=== PATIENT | male | born 1940 | race Caucasian/White ===

== ENCOUNTER 2018-05-22 08:28 | Observation (INO) | payer OTHER, SELFPAY ==
[2018-05-22] VITALS (10 sets, daily range): BP systolic 105–128; BP diastolic 53–86; PULSE 64–73; RESP 13–18; TEMP 36.3–36.7; O2SAT 95–99
--- NOTE | 2018-05-22 09:17 | DI.RAD.S_ITS ---
PROCEDURE: XR CHEST 1V INDICATIONS: weakness TECHNIQUE: One view of the chest was acquired. COMPARISON: None. FINDINGS: Surgical changes and devices: None. Lungs and pleura: No pleural effusions or pneumothorax. Lungs are clear considering reduced inspiratory volume. Mediastinum: Mediastinal contours appear normal. Heart size is normal. Bones and chest wall: No suspicious bony lesions. Overlying soft tissues appear unremarkable. IMPRESSION: Mildly reduced inspiratory volume, mild crowding of the bronchovascular markings as a result but no pneumonia found. Dictated by: Rony Baca M.D. on 05/22/2018 at 9:40 Approved by: Rony Baca M.D. on 05/22/2018 at 9:40
[2018-05-22 09:24] LABS: Prothrombin Time 11.4 SECONDS (10.1-12.7)
[2018-05-22 09:27] LABS: PTT Partial Thromboplastin Tim 27 SECONDS (26.4-36.2)
[2018-05-22 09:28] LABS: Alanine Aminotransferase 34 IU/L (21-72); Albumin 3.9 g/dL (3.5-5.0); Albumin Globulin Ratio 1.4 (1.0-2.8); Alkaline Phosphatase 53 U/L (38-126); Aspartate Aminotransferase 33 IU/L (17-59); Bilirubin Total 0.5 mg/dL (0.2-1.3); Blood Urea Nitrogen 29 mg/dL (9-20); Calcium 10.1 mg/dL (8.4-10.2); Carbon Dioxide 33 mmol/L (22-32); Chloride 103 mmol/L (98-107); Estimated Glomerular Filt Rate > 60.0 mL/min (>60); Globulin 2.7 g/dL (1.7-4.1); Glucose 133 mg/dL (80-110); HEMOLYSIS < 15 (0-50); Potassium 3.5 mmol/L (3.4-5.1); Sodium 144 mmol/L (137-145); Total Protein 6.6 g/dL (6.3-8.2)
[2018-05-22 09:30] LABS: Add Manual Diff / Slide Review NO; Basophils Percent Auto 1.1 % (0-2); Eosinophils Percent Auto 4.2 % (2-4); Hematocrit 40.1 % (41-53); Hemoglobin 13.5 g/dL (13.5-17.5); Mean Corpuscular HGB Conc 33.6 % (30-36); Mean Corpuscular Hemoglobin 29.7 PG (26-34); Mean Corpuscular Volume 88.3 fL (80-100); Monocytes Percent Auto 10.2 % (3-14); Neutrophils Absolute Auto 4300 /uL (3000-5900); Neutrophils Percent Auto 71.5 % (50-75); Platelet Count 296 X10^3/uL (150-400); Red Blood Cell Count 4.54 X10^6/uL (4.5-5.9); Red Cell Distribution Width 13.8 % (11.6-14.8)
[2018-05-22 09:40] LABS: Troponin I < 0.012 ng/mL (0.01-0.034)
--- NOTE | 2018-05-22 09:46 | ED_ITS ---
HPI - Weakness General Chief complaint: Weakness Stated complaint: cognitive problems, slurring, cannot walk Time Seen by Provider: 05/22/18 09:15 Source: patient and family Mode of arrival: EMS Limitations: altered mental status History of Present Illness HPI Narrative: This is a 77-year-old gentleman who comes to the emergency department with complaint of weakness and multiple falls. According to him and his daughter he has more of a generalized weakness. She states over the last couple weeks it has been rapidly worsening although he has had symptoms for several months. Today she had to lift him by both arms to get him to a bathroom and she states practically carry him. He states that he has had chronic back pain although he states that is usual level of pain. He states when he is walking sometimes he can't feel his legs very well but that really his main issue was that he cannot control the well when he is trying to walk. He is not having any new loss of bowel or bladder control. He had an MRI in 2 or 3 months ago. Now he has not had any recent imaging. He did have a fall almost every single day for 2 weeks while in [place] with his family that was about a week ago. He had his head every single day as well. He is denying any headaches comma is denying any new difficulties with speech or numbness or tingling in his upper extremities. He has a any chest pain or shortness of breath and denies any nausea or vomiting. Related Data Home Medications Medication Instructions Recorded Confirmed Probiotic 1 cap PO DAILY 05/22/18 05/22/18 Vitamin D3 1 cap PO DAILY 05/22/18 05/22/18 donepezil 10 mg PO DAILY 05/22/18 05/22/18 multivitamin 1 tab PO DAILY 05/22/18 05/22/18 vitamin B complex 1 tab PO DAILY 05/22/18 05/22/18 vitamin E 1 cap PO DAILY 05/22/18 05/22/18 Previous Rx's Medication Instructions Recorded lisinopril-hydrochlorothiazide 1 tab PO QDAY #90 tab 04/15/18 doxazosin 4 mg tablet 4 mg PO DAILY #30 tab 05/20/18 Allergies Allergy/AdvReac Type Severity Reaction Status Date / Time Sulfa (Sulfonamide Allergy Severe PER PT Verified 05/22/18 08:37 Antibiotics) WHITE [SULFA (SULFONAMIDE BLOOD ANTIBIOTICS)] CELLS ELIMINATE RED BLOOD CELLS codeine [CODEINE] Allergy Mild BAD Verified 05/22/18 08:37 HEADACHES Review of Systems Review of Systems All systems reviewed & are unremarkable except as noted in HPI and below Constitutional Denies chills, Denies fever(s), Reports frequent falls, Denies headache(s) and Reports weakness (Bilateral lower extremity) ENT Ears, Nose, Mouth, and Throat: Denies headache(s) Cardiovascular Denies chest pain, Denies irregular heart rhythm, Denies lightheadedness, Denies palpitations, Denies dyspnea, Denies dyspnea on exertion and Denies orthopnea Respiratory Denies cough, Denies dyspnea, Denies dyspnea on exertion and Denies wheezing Gastrointestinal Gastrointestinal: Denies abdominal pain, Denies change in bowel habits, Denies fecal incontinence, Denies diarrhea, Denies nausea and Denies vomiting Genitourinary Denies difficulty urinating and Denies urinary incontinence Musculoskeletal Reports back pain and Reports muscle weakness (Both legs) Neurologic Reports frequent falls, Denies headache(s) and Reports weakness (Bilateral lower extremity) Endocrine Denies palpitations Allergic/Immunologic Denies wheezing PFSH Social History marital status: household members: spouse Smoking Status: Former smoker alcohol intake: current substance use type: does not use Exam Narrative Exam Narrative: GEN: well nourished, well appearing elderly male, alert and oriented x 3, patient appears to be in mild distress. HEENT: Atraumatic, pupils are equal round reactive to light, extraocular movements are intact, no facial droop. HEART: Regular rate and rhythm without murmur, clicks, rubs. No carotid bruits , pulses are equal in upper and lower extremities LUNGS:Lungs clear to auscultation, no wheezes, rales, crackles, chest moves symmetrically ABD:bowel sounds normal, soft, non-tender, no guarding, rebound, rigidity, no masses noted, no hepatosplenomegaly :No CVA tenderness BACK: No cervical, thoracic or lumbar vertebral point tenderness. Patient has decreased range of motion of lower extremities. Patient can barely lift off them off the bed b/l. No weakness in upper extremities. Patient's gait is not tested. 2+ pulses all four extremities. Sensation is intact in the lower extremities. MSCL: Non-tender, no muscle atrophy, muscles strength 5/5 upper and lower extremities, full range of motion, normal gait NEURO:CN 2-12 intact, sensation normal, reflexes 2/4 upper and lower extremities. finger nose finger test normal, heel barakat test normal, romberg normal Initial Vital Signs Initial Vital Signs: Vital Signs Pulse Rate 67 05/22/18 11:36 Respiratory Rate 15 05/22/18 11:36 Blood Pressure 122/69 05/22/18 11:36 Pulse Oximetry 97 05/22/18 11:36 Course Orders Ordered: ED Orders 05/22/18 16:29 Education, smoking cessation ONGOING 05/22/18 16:42 Consult to Dietitian, Adult Routine 05/22/18 18:40 Urinalysis and Microscopic Urgent Acetaminophen (Tylenol) 650 mg PO Q6HR PRN PRN Reason: As Needed for Fever/Mild Pain Hydrocodone Bitart/Acetaminophen ([place] 5/325) 2 tab PO Q4HR PRN PRN Reason: Pain, Severe (7-10) Donepezil HCl (Aricept) 10 mg PO DAILY [facility] Enoxaparin Sodium (Lovenox) 40 mg SUBCUT DAILY [facility] Hydrochlorothiazide (Hydrochlorothiazide) 12.5 mg PO DAILY [facility] Last Admin: 05/22/18 18:04 Dose: 12.5 mg Lisinopril (Zestril) 10 mg PO DAILY [facility] Last Admin: 05/22/18 18:04 Dose: 10 mg Discontinued Medications Sodium Chloride (Normal Saline 0.9%) 1,000 mls @ 150 mls/hr IV CONT [facility] Last Infusion: 05/22/18 15:05 Dose: 150 mls/hr Admin: 05/22/18 09:52 Dose: 150 mls/hr Ondansetron HCl (Zofran) 4 mg IV NOW ONE Stop: 05/22/18 10:01 Last Admin: 05/22/18 10:10 Dose: Vital Signs - 8 hr 05/22/18 13:01 05/22/18 14:13 05/22/18 14:45 Temperature 97.6 F Pulse Rate 71 72 73 Respiratory Rate 13 16 16 Blood Pressure 124/53 L Blood Pressure [Right Arm] 117/64 105/86 Pulse Oximetry 98 99 98 05/22/18 16:29 05/22/18 18:04 05/22/18 19:53 Temperature 97.4 F L 98.1 F Pulse Rate 69 69 71 Respiratory Rate 16 18 Blood Pressure 128/55 L 128/55 L 120/56 L Blood Pressure [Right Arm] Pulse Oximetry MDM - Weakness Lab Data Attestation: I reviewed the patient's lab results. Result diagrams: 05/22/18 09:00 05/22/18 09:00 Lab Results 05/22/18 05/22/18 05/22/18 Range/Units 09:00 09:00 09:00 WBC 6.0 (4.5-11.0) X10^3/uL RBC 4.54 (4.5-5.9) X10^6/uL Hgb 13.5 (13.5-17.5) g/dL Hct 40.1 L (41-53) % MCV 88.3 (80-100) fL MCH 29.7 (26-34) PG MCHC 33.6 (30-36) % RDW 13.8 (11.6-14.8) % Plt Count 296 (150-400) X10^3/uL Neut % (Auto) 71.5 (50-75) % Lymph % (Auto) 13.0 L (25-40) % [place] % (Auto) 10.2 (3-14) % Eos % (Auto) 4.2 H (2-4) % Baso % (Auto) 1.1 (0-2) % Neut # (Auto) 4300 (9858-0826) /uL PT 11.4 (10.1-12.7) SECONDS INR 1.0 (0.9-1.3) APTT 27 (26.4-36.2) SECONDS Sodium 144 (137-145) mmol/L Potassium 3.5 (3.4-5.1) mmol/L Chloride 103 (98-107) mmol/L Carbon Dioxide 33 H (22-32) mmol/L BUN 29 H (9-20) mg/dL Creatinine 1.00 (0.66-1.25) mg/dL Estimated GFR > 60.0 (>60) mL/min BUN/Creatinine Ratio 29.0 H (6-22) Glucose 133 H (80-110) mg/dL Calcium 10.1 (8.4-10.2) mg/dL Total Bilirubin 0.5 (0.2-1.3) mg/dL AST 33 (17-59) IU/L ALT 34 (21-72) IU/L Alkaline Phosphatase 53 (38-126) U/L Troponin I (0.01-0.034) ng/mL C-Reactive Protein (<1.0) mg/dL Total Protein 6.6 (6.3-8.2) g/dL Albumin 3.9 (3.5-5.0) g/dL Globulin 2.7 (1.7-4.1) g/dL Albumin/Globulin Ratio 1.4 (1.0-2.8) Vitamin B12 (239-931) pg/mL TSH (0.47-4.68) uIU/mL 05/22/18 05/22/18 05/22/18 Range/Units 09:00 09:00 09:00 WBC (4.5-11.0) X10^3/uL RBC (4.5-5.9) X10^6/uL Hgb (13.5-17.5) g/dL Hct (41-53) % MCV (80-100) fL MCH (26-34) PG MCHC (30-36) % RDW (11.6-14.8) % Plt Count (150-400) X10^3/uL Neut % (Auto) (50-75) % Lymph % (Auto) (25-40) % [place] % (Auto) (3-14) % Eos % (Auto) (2-4) % Baso % (Auto) (0-2) % Neut # (Auto) (9705-6853) /uL PT (10.1-12.7) SECONDS INR (0.9-1.3) APTT (26.4-36.2) SECONDS Sodium (137-145) mmol/L Potassium (3.4-5.1) mmol/L Chloride (98-107) mmol/L Carbon Dioxide (22-32) mmol/L BUN (9-20) mg/dL Creatinine (0.66-1.25) mg/dL Estimated GFR (>60) mL/min BUN/Creatinine Ratio (6-22) Glucose (80-110) mg/dL Calcium (8.4-10.2) mg/dL Total Bilirubin (0.2-1.3) mg/dL AST (17-59) IU/L ALT (21-72) IU/L Alkaline Phosphatase (38-126) U/L Troponin I < 0.012 (0.01-0.034) ng/mL C-Reactive Protein < 0.5 (<1.0) mg/dL Total Protein (6.3-8.2) g/dL Albumin (3.5-5.0) g/dL Globulin (1.7-4.1) g/dL Albumin/Globulin Ratio (1.0-2.8) Vitamin B12 641 (239-931) pg/mL TSH 0.06 L (0.47-4.68) uIU/mL Urine Dip Bedside Urine Glucose Negative Bedside Urine Bilirubin - Negative Bedside Urine Ketone - Negative Urine Specific [place] 1.025 Bedside Urine Occult Blood - Negative Bedside Urine pH 6.0 Bedside Urine Protein - Negative Bedside Urine Urobilinogen - Negative Bedside Urine Nitrite - Negative Bedside Urine Leukocytes - Negative Esterase Imaging Data CT scan - head: Radiologist's impression: [address] [address] [address] Scan Report Signed Patient: Kenny Sanderson EMR#: [id number] : 9Acct:[id number] Age/Sex: 77 / MDate of Service: 05/22/18 Loc: ED Accession Number: [id number] Procedure: CT head/brain wo con Ordering Provider: Melanie Barba D.O. PROCEDURE: CT HEAD/BRAIN WO CON INDICATIONS: weakness, multiple falls, hit head x 2 weeks TECHNIQUE: Noncontrast 4.5 mm thick angled axial sections acquired from the foramen magnum to the vertex, with coronal and sagittal reformats. For radiation dose reduction, the following was used: automated exposure control, adjustment of mA and/or kV according to patient size. COMPARISON: [facility], MR, BRAIN WITHOUT CONTRAST, 05/08/2017, 15:04. FINDINGS: Image quality: Diagnostic. CSF spaces: Basal cisterns are patent. No extra-axial fluid collections. Ventricles are moderately prominent with corresponding parenchymal volume loss. The degree of lateral and 3rd ventricular enlargement is more pronounced compared to the degree of parenchymal volume loss. This appearance is similar to the prior study. Brain: No midline shift. No intracranial masses or hemorrhage. Ruiz-white matter interface is normal. Areas of low-attenuation are seen within the periventricular and deep white matter of the supratentorial brain. Skull and face: Calvarium and visualized facial bones are intact, without suspicious lesions. Sinuses: Visualized sinuses and mastoids are clear. IMPRESSION: 1. No acute intracranial hemorrhage. 2. Chronic small vessel ischemic changes. 3. The degree of ventricular enlargement is unchanged since the prior study and does raise the question of normal pressure hydrocephalus. Please correlate clinically. Dictated by: Harsha Pandya M.D. on 05/22/2018 at 9:23 Approved by: Harsha Pandya M.D. on 05/22/2018 at 9:25 L spine x-ray: Radiologist's impression: [address] [address] XRay Report Signed Patient: Kenny Sanderson EMR#: [id number] : 9Acct:[id number] Age/Sex: 77 / MDate of Service: 05/22/18 Loc: ED Accession Number: [id number] Procedure: XR lumbar spine 2-3V Ordering Provider: Melanie Barba D.O. PROCEDURE: XR LUMBAR SPINE 2-3V INDICATIONS: weakness in legs, multiple falls, back pain TECHNIQUE: 3 views of the lumbar spine were acquired. COMPARISON: None. FINDINGS: Bones: 5 [id number] vertebrae are present. There is grade I L2 on L3 retrolisthesis and L4 on L5 anterolisthesis. No vertebral body compression fractures. No suspicious bony lesions. Mild degenerative changes present throughout the lumbar spine including intervertebral disc space narrowing, endplate sclerosis, and osteophytosis. Vacuum disc phenomenon is present at L5-S1. Soft tissues: Overlying bowel gas pattern is normal. No suspicious soft tissue calcifications. Scattered vascular calcifications are present within the abdominal aorta. IMPRESSION: 1. Degenerative changes and spondylolisthesis. 2. No wedge compression deformities. 3. Aortic atherosclerosis. Dictated by: Renetta Montague M.D. on 05/22/2018 at 10:47 Approved by: Renetta Montague M.D. on 05/22/2018 at 10:49 ECG Data Attestation: I personally reviewed and interpreted this ECG as follows: Interpretation: Sinus rhythm with rate of 71, UT of 229, QRS of 154 QTC 422. Right bundle branch block MDM Narrative Medical decision making narrative: Patient has had increasing weakness and falls. Him and his daughter asked about social work an additional help for in- home health care. Consult was placed but we had also discussed putting patient on observation for further evaluation to see if there is any issues that can help resolve his weakness as well as multiple falls. Head CT shows a possible normal pressure hydrocephalus. Patient's L-spine x-ray does not show any acute changes although discussed with Dr. Hayes plan to admit and they may do some further testing and imaging for further evaluation Discharge Plan Departure Patient Disposition: Admitted as Observation Clinical Impression: Weakness, Multiple falls Discharge Date/Time: 05/22/18 15:06 Interventions: ED Discharge Assessment Last Done: 05/22/18 15:04 Admit Date/Time: 05/22/18 12:04 Admit Provider: Jose Hayes
[2018-05-22] MEDS: SODIUM CHLORIDE 0.9% 1,000 ML 150 ML IV (09:52)
--- NOTE | 2018-05-22 10:04 | DI.RAD.S_ITS ---
PROCEDURE: XR LUMBAR SPINE 2-3V INDICATIONS: weakness in legs, multiple falls, back pain TECHNIQUE: 3 views of the lumbar spine were acquired. COMPARISON: None. FINDINGS: Bones: 5 [id number] vertebrae are present. There is grade I L2 on L3 retrolisthesis and L4 on L5 anterolisthesis. No vertebral body compression fractures. No suspicious bony lesions. Mild degenerative changes present throughout the lumbar spine including intervertebral disc space narrowing, endplate sclerosis, and osteophytosis. Vacuum disc phenomenon is present at L5-S1. Soft tissues: Overlying bowel gas pattern is normal. No suspicious soft tissue calcifications. Scattered vascular calcifications are present within the abdominal aorta. IMPRESSION: 1. Degenerative changes and spondylolisthesis. 2. No wedge compression deformities. 3. Aortic atherosclerosis. Dictated by: Renetta Montague M.D. on 05/22/2018 at 10:47 Approved by: Renetta Montague M.D. on 05/22/2018 at 10:49
--- NOTE | 2018-05-22 10:10 | DI.CT.S_ITS ---
PROCEDURE: CT HEAD/BRAIN WO CON INDICATIONS: weakness, multiple falls, hit head x 2 weeks TECHNIQUE: Noncontrast 4.5 mm thick angled axial sections acquired from the foramen magnum to the vertex, with coronal and sagittal reformats. For radiation dose reduction, the following was used: automated exposure control, adjustment of mA and/or kV according to patient size. COMPARISON: [facility], MR, BRAIN WITHOUT CONTRAST, 05/08/2017, 15:04. FINDINGS: Image quality: Diagnostic. CSF spaces: Basal cisterns are patent. No extra-axial fluid collections. Ventricles are moderately prominent with corresponding parenchymal volume loss. The degree of lateral and 3rd ventricular enlargement is more pronounced compared to the degree of parenchymal volume loss. This appearance is similar to the prior study. Brain: No midline shift. No intracranial masses or hemorrhage. Ruiz-white matter interface is normal. Areas of low-attenuation are seen within the periventricular and deep white matter of the supratentorial brain. Skull and face: Calvarium and visualized facial bones are intact, without suspicious lesions. Sinuses: Visualized sinuses and mastoids are clear. IMPRESSION: 1. No acute intracranial hemorrhage. 2. Chronic small vessel ischemic changes. 3. The degree of ventricular enlargement is unchanged since the prior study and does raise the question of normal pressure hydrocephalus. Please correlate clinically. Dictated by: Harsha Pandya M.D. on 05/22/2018 at 9:23 Approved by: Harsha Pandya M.D. on 05/22/2018 at 9:25
--- NOTE | 2018-05-22 12:48 | PM.HP.1 ---
History of Present Illness Date Patient Seen: 05/22/18 Time Patient Seen: 13:20 Chief complaint: cognitive problems, slurring, cannot walk Narrative: Patient seen and evaluated in the emergency department he is there with his . They live ongoing with [place]. Patient has been seen by me for the last 10 years or so. Over the last 3-5 years he has had a gradual progression decline in his strength in his lower extremities. He has had increasing difficulty with weakness. Balance and coordination which has worsened. This began with workup about 3 years ago. Patient had an MRI of his head and also of his neck. He had laboratory could testing including vitamin B12 folic acid inflammatory markers heavy metals and RPR. Patient solid neurologist at that point. He was diagnosed with an ataxic gait of unknown etiology. Since that time things have progressed. In last year he started to having to use a walker. His cognition is decreased a little bit. He is no longer able to remember things like he used to. He had a follow-up appointment with a different neurologist Dr. Geri hanna. And no unifying conclusive diagnosis was made had a repeat of his MRI of his brain. His MRI show chronic microvascular ischemic changes and age-related atrophy. But no specific concerns. Things have continued to progress and over the last month. He has become more and more weak having more more times of forgetfulness. Now he cannot walk without a walker. He is following. He was brought to the emergency room most recently by his who states on Sunday he could not walk she could not help transport him and could not get him up out of bed or to the bathroom. He presents to the emergency department. Emergency room laboratory testing is normal. Blood pressure is normal. Heart rhythm monitoring is normal. Lumbar spine x-rays normal chest x-ray is normal CT scan shows old changes. On my examination his baseline cognition is there. But he is a fairly good historian with his at his bedside. I did not get him up to walk. Patient History Family & Social History Tobacco & Substance use: Smoking Status Never smoker alcohol intake current Meds Home Medications Medication Instructions Recorded Confirmed Type lisinopril-hydrochlorothiazide 1 tab PO QDAY #90 tab 04/15/18 05/22/18 Rx doxazosin 4 mg tablet 4 mg PO DAILY #30 tab 05/20/18 05/22/18 Rx Probiotic 1 cap PO DAILY 05/22/18 05/22/18 History Vitamin D3 1 cap PO DAILY 05/22/18 05/22/18 History donepezil 10 mg PO DAILY 05/22/18 05/22/18 History multivitamin 1 tab PO DAILY 05/22/18 05/22/18 History vitamin B complex 1 tab PO DAILY 05/22/18 05/22/18 History vitamin E 1 cap PO DAILY 05/22/18 05/22/18 History Allergies Allergy/AdvReac Type Severity Reaction Status Date / Time Sulfa (Sulfonamide Allergy Severe PER PT Verified 05/22/18 08:37 Antibiotics) WHITE [SULFA (SULFONAMIDE BLOOD ANTIBIOTICS)] CELLS ELIMINATE RED BLOOD CELLS codeine [CODEINE] Allergy Mild BAD Verified 05/22/18 08:37 HEADACHES Exam Vital Signs (past 8 hours): - 05/22/18 11:36 05/22/18 12:00 Pulse Rate 67 68 Respiratory Rate 15 16 Blood Pressure [Right Arm] 122/69 116/65 Pulse Oximetry 97 98 Oxygen Delivery Method Room Air Narrative Exam Narrative: Gen.: Alert difficulty with time oriented to place and person HEENT: NCAT PERRLA tympanic membranes are clear nares are patent oral mucosa is moist no tonsillar hypertrophy neck is supple without lymphadenopathy no thyroid enlargement. Cardio: S1-S2 regular rate and rhythm no murmurs appreciated. Respiratory: Lungs are clear to auscultation no wheezes or crackles normal respiratory effort. Abdomen: Soft nontender no rebound or guarding no liver spleen enlargement no appreciable hernias Extremities: Full range of motion no appreciable weakness no cyanosis or edema. Neurologic: No focal neurological deficit Objective Imaging MRI - head: Radiologist's impression: MRI from 2018 earlier this year shows chronic microvascular ischemic changes as well as age-related atrophy. CT scan - head: Radiologist's impression: [address] [address] [address] Scan Report Signed Patient: Kenny Sanderson MR#: [id number] : 1940 Acct:[id number] Age/Sex: 77 / M Date of Service: 05/22/18 Loc: ED Accession Number: [id number] Procedure: CT head/brain wo con Ordering Provider: Melanie Barba D.O. PROCEDURE: CT HEAD/BRAIN WO CON INDICATIONS: weakness, multiple falls, hit head x 2 weeks TECHNIQUE: Noncontrast 4.5 mm thick angled axial sections acquired from the foramen magnum to the vertex, with coronal and sagittal reformats. For radiation dose reduction, the following was used: automated exposure control, adjustment of mA and/or kV according to patient size. COMPARISON: [facility], MR, BRAIN WITHOUT CONTRAST, 05/08/2017, 15:04. FINDINGS: Image quality: Diagnostic. CSF spaces: Basal cisterns are patent. No extra-axial fluid collections. Ventricles are moderately prominent with corresponding parenchymal volume loss. The degree of lateral and 3rd ventricular enlargement is more pronounced compared to the degree of parenchymal volume loss. This appearance is similar to the prior study. Brain: No midline shift. No intracranial masses or hemorrhage. Ruiz-white matter interface is normal. Areas of low-attenuation are seen within the periventricular and deep white matter of the supratentorial brain. Skull and face: Calvarium and visualized facial bones are intact, without suspicious lesions. Sinuses: Visualized sinuses and mastoids are clear. IMPRESSION: 1. No acute intracranial hemorrhage. 2. Chronic small vessel ischemic changes. 3. The degree of ventricular enlargement is unchanged since the prior study and does raise the question of normal pressure hydrocephalus. Please correlate clinically. Labs Result Diagrams: 05/22/18 09:00 05/22/18 09:00 Labs: Laboratory Results - last 24 hr 05/22/18 05/22/18 05/22/18 09:00 09:00 09:00 WBC 6.0 RBC 4.54 Hgb 13.5 Hct 40.1 L MCV 88.3 MCH 29.7 MCHC 33.6 RDW 13.8 Plt Count 296 Neut % (Auto) 71.5 Lymph % (Auto) 13.0 L [place] % (Auto) 10.2 Eos % (Auto) 4.2 H Baso % (Auto) 1.1 Neut # (Auto) 4300 PT 11.4 INR 1.0 APTT 27 Sodium 144 Potassium 3.5 Chloride 103 Carbon Dioxide 33 H BUN 29 H Creatinine 1.00 Estimated GFR > 60.0 BUN/Creatinine Ratio 29.0 H Glucose 133 H Calcium 10.1 Total Bilirubin 0.5 AST 33 ALT 34 Alkaline Phosphatase 53 Troponin I Total Protein 6.6 Albumin 3.9 Globulin 2.7 Albumin/Globulin Ratio 1.4 05/22/18 09:00 WBC RBC Hgb Hct MCV MCH MCHC RDW Plt Count Neut % (Auto) Lymph % (Auto) [place] % (Auto) Eos % (Auto) Baso % (Auto) Neut # (Auto) PT INR APTT Sodium Potassium Chloride Carbon Dioxide BUN Creatinine Estimated GFR BUN/Creatinine Ratio Glucose Calcium Total Bilirubin AST ALT Alkaline Phosphatase Troponin I < 0.012 Total Protein Albumin Globulin Albumin/Globulin Ratio Assessment & Plan Plan: Assessment/Plan Narrative: Inability to ambulate falls weakness neural cognitive changes all progressive. Patient has had an increase in of symptomatology. He is unable to ambulate. Laboratory testing from the emergency room was unrevealing. CT scan shows no acute intracranial pathology. Patient has an extensive workup history with the MRIs of his head neck. He is also seeing that Neurosurgery for back as a potential problem of his the difficulty with ambulating. Two different neurologists none of which have come up with a significant diagnosis. These might be age-related changes or they may be an underlying condition. Such is normal pressure hydrocephalus. Some type of other attack sick disorder. Nonetheless she is unable to really take care of himself at home at this point. There is no good care plan available for him right now. Will go ahead and admit him to the hospital. Will have a social science teacher evaluate him and talk with him his about to have additional care plans and support whether this is home health or shelter facility versus assisted living. He will need continued ongoing workup and evaluation of this with Neurology which we do not have access to currently at our hospital. BPH symptoms. He is allergic to sulfa. He is not tolerating Flomax. Will go ahead and start finasteride 5 mg daily. Hypertension. He is currently on an antihypertensive medication will continue with this. DVT prophylaxis with Lovenox. Disposition plan physical therapy social science teacher evaluation for help in management with he and his about the long-term care plans. We will go from there.
--- NOTE | 2018-05-22 12:52 | P.HP_ITS ---
History of Present Illness Date Patient Seen: 05/22/18 Time Patient Seen: 13:20 Chief complaint: cognitive problems, slurring, cannot walk Narrative: Patient seen and evaluated in the emergency department he is there with his . They live ongoing with [facility]. Patient has been seen by me for the last 10 years or so. Over the last 3-5 years he has had a gradual progression decline in his strength in his lower extremities. He has had increasing difficulty with weakness. Balance and coordination which has worsened. This began with workup about 3 years ago. Patient had an MRI of his head and also of his neck. He had laboratory could testing including vitamin B12 folic acid inflammatory markers heavy metals and RPR. Patient solid neurologist at that point. He was diagnosed with an ataxic gait of unknown etiology. Since that time things have progressed. In last year he started to having to use a walker. His cognition is decreased a little bit. He is no longer able to remember things like he used to. He had a follow-up appointment with a different neurologist Dr. Geri hanna. And no unifying conclusive diagnosis was made had a repeat of his MRI of his brain. His MRI show chronic microvascular ischemic changes and age-related atrophy. But no specific concerns. Things have continued to progress and over the last month. He has become more and more weak having more more times of forgetfulness. Now he cannot walk without a walker. He is following. He was brought to the emergency room most recently by his who states on Sunday he could not walk she could not help transport him and could not get him up out of bed or to the bathroom. He presents to the emergency department. Emergency room laboratory testing is normal. Blood pressure is normal. Heart rhythm monitoring is normal. Lumbar spine x-rays normal chest x-ray is normal CT scan shows old changes. On my examination his baseline cognition is there. But he is a fairly good historian with his at his bedside. I did not get him up to walk. Patient History Family & Social History Tobacco & Substance use: Smoking Status Never smoker alcohol intake current Meds Home Medications Medication Instructions Recorded Confirmed Type lisinopril-hydrochlorothiazide 1 tab PO QDAY #90 tab 04/15/18 05/22/18 Rx doxazosin 4 mg tablet 4 mg PO DAILY #30 tab 05/20/18 05/22/18 Rx Probiotic 1 cap PO DAILY 05/22/18 05/22/18 History Vitamin D3 1 cap PO DAILY 05/22/18 05/22/18 History donepezil 10 mg PO DAILY 05/22/18 05/22/18 History multivitamin 1 tab PO DAILY 05/22/18 05/22/18 History vitamin B complex 1 tab PO DAILY 05/22/18 05/22/18 History vitamin E 1 cap PO DAILY 05/22/18 05/22/18 History Allergies Allergy/AdvReac Type Severity Reaction Status Date / Time Sulfa (Sulfonamide Allergy Severe PER PT Verified 05/22/18 08:37 Antibiotics) WHITE [SULFA (SULFONAMIDE BLOOD ANTIBIOTICS)] CELLS ELIMINATE RED BLOOD CELLS codeine [CODEINE] Allergy Mild BAD Verified 05/22/18 08:37 HEADACHES Exam Vital Signs (past 8 hours): - 05/22/18 11:36 05/22/18 12:00 Pulse Rate 67 68 Respiratory Rate 15 16 Blood Pressure [Right Arm] 122/69 116/65 Pulse Oximetry 97 98 Oxygen Delivery Method Room Air Narrative Exam Narrative: Gen.: Alert difficulty with time oriented to place and person HEENT: NCAT PERRLA tympanic membranes are clear nares are patent oral mucosa is moist no tonsillar hypertrophy neck is supple without lymphadenopathy no thyroid enlargement. Cardio: S1-S2 regular rate and rhythm no murmurs appreciated. Respiratory: Lungs are clear to auscultation no wheezes or crackles normal respiratory effort. Abdomen: Soft nontender no rebound or guarding no liver spleen enlargement no appreciable hernias Extremities: Full range of motion no appreciable weakness no cyanosis or edema. Neurologic: No focal neurological deficit Objective Imaging MRI - head: Radiologist's impression: MRI from 2018 earlier this year shows chronic microvascular ischemic changes as well as age-related atrophy. CT scan - head: Radiologist's impression: [address] [address] [address] Scan Report Signed Patient: Kenny Sanderson MR#: [id number] : 1940 Acct:[id number] Age/Sex: 77 / M Date of Service: 05/22/18 Loc: ED Accession Number: [id number] Procedure: CT head/brain wo con Ordering Provider: Melanie Barba D.O. PROCEDURE: CT HEAD/BRAIN WO CON INDICATIONS: weakness, multiple falls, hit head x 2 weeks TECHNIQUE: Noncontrast 4.5 mm thick angled axial sections acquired from the foramen magnum to the vertex, with coronal and sagittal reformats. For radiation dose reduction, the following was used: automated exposure control, adjustment of mA and/or kV according to patient size. COMPARISON: [facility], MR, BRAIN WITHOUT CONTRAST, 05/08/2017, 15:04. FINDINGS: Image quality: Diagnostic. CSF spaces: Basal cisterns are patent. No extra-axial fluid collections. Ventricles are moderately prominent with corresponding parenchymal volume loss. The degree of lateral and 3rd ventricular enlargement is more pronounced compared to the degree of parenchymal volume loss. This appearance is similar to the prior study. Brain: No midline shift. No intracranial masses or hemorrhage. Ruiz-white matter interface is normal. Areas of low-attenuation are seen within the periventricular and deep white matter of the supratentorial brain. Skull and face: Calvarium and visualized facial bones are intact, without suspicious lesions. Sinuses: Visualized sinuses and mastoids are clear. IMPRESSION: 1. No acute intracranial hemorrhage. 2. Chronic small vessel ischemic changes. 3. The degree of ventricular enlargement is unchanged since the prior study and does raise the question of normal pressure hydrocephalus. Please correlate clinically. Labs Result Diagrams: 05/22/18 09:00 05/22/18 09:00 Labs: Laboratory Results - last 24 hr 05/22/18 05/22/18 05/22/18 09:00 09:00 09:00 WBC 6.0 RBC 4.54 Hgb 13.5 Hct 40.1 L MCV 88.3 MCH 29.7 MCHC 33.6 RDW 13.8 Plt Count 296 Neut % (Auto) 71.5 Lymph % (Auto) 13.0 L [place] % (Auto) 10.2 Eos % (Auto) 4.2 H Baso % (Auto) 1.1 Neut # (Auto) 4300 PT 11.4 INR 1.0 APTT 27 Sodium 144 Potassium 3.5 Chloride 103 Carbon Dioxide 33 H BUN 29 H Creatinine 1.00 Estimated GFR > 60.0 BUN/Creatinine Ratio 29.0 H Glucose 133 H Calcium 10.1 Total Bilirubin 0.5 AST 33 ALT 34 Alkaline Phosphatase 53 Troponin I Total Protein 6.6 Albumin 3.9 Globulin 2.7 Albumin/Globulin Ratio 1.4 05/22/18 09:00 WBC RBC Hgb Hct MCV MCH MCHC RDW Plt Count Neut % (Auto) Lymph % (Auto) [place] % (Auto) Eos % (Auto) Baso % (Auto) Neut # (Auto) PT INR APTT Sodium Potassium Chloride Carbon Dioxide BUN Creatinine Estimated GFR BUN/Creatinine Ratio Glucose Calcium Total Bilirubin AST ALT Alkaline Phosphatase Troponin I < 0.012 Total Protein Albumin Globulin Albumin/Globulin Ratio Assessment & Plan Plan: Assessment/Plan Narrative: Inability to ambulate falls weakness neural cognitive changes all progressive. Patient has had an increase in of symptomatology. He is unable to ambulate. Laboratory testing from the emergency room was unrevealing. CT scan shows no acute intracranial pathology. Patient has an extensive workup history with the MRIs of his head neck. He is also seeing that Neurosurgery for back as a potential problem of his the difficulty with ambulating. Two different neurologists none of which have come up with a significant diagnosis. These might be age-related changes or they may be an underlying condition. Such is normal pressure hydrocephalus. Some type of other attack sick disorder. Nonetheless she is unable to really take care of himself at home at this point. There is no good care plan available for him right now. Will go ahead and admit him to the hospital. Will have a social media developer evaluate him and talk with him his about to have additional care plans and support whether this is home health or prison facility versus assisted living. He will need continued ongoing workup and evaluation of this with Neurology which we do not have access to currently at our hospital. BPH symptoms. He is allergic to sulfa. He is not tolerating Flomax. Will go ahead and start finasteride 5 mg daily. Hypertension. He is currently on an antihypertensive medication will continue with this. DVT prophylaxis with Lovenox. Disposition plan physical therapy social media developer evaluation for help in management with he and his about the long-term care plans. We will go from there.
[2018-05-22 14:24] LABS: C-Reactive Protein Quant < 0.5 mg/dL (<1.0)
[2018-05-22 14:49] LABS: Thyroid Stimulating Hormone 0.06 uIU/mL (0.47-4.68)
[2018-05-22 15:08] LABS: Vitamin B12 641 pg/mL (239-931)
[2018-05-22] MEDS: hydroCHLOROthiazide 12.5 MG CAPSULE PO (18:04)
[2018-05-22] MEDS: LISINOPRIL 10 MG TABLET PO (18:04)
[2018-05-22 19:47] LABS: Bacteria Urine None Seen; RBC Urine None Seen (0-5/HPF)
[2018-05-22 19:51] LABS: Appearance Urine UA SL CLOUDY; Bilirubin Urine UA NEGATIVE (NEGATIVE); Color Urine UA YELLOW; Glucose Urine UA NEGATIVE (Normal); Ketones Urine UA NEGATIVE (NEGATIVE); Leukocyte Esterase Urine UA NEGATIVE (NEGATIVE); Nitrite Urine UA NEGATIVE (Negative); Occult Blood Urine UA NEGATIVE (Negative); Protein Urine UA NEGATIVE (Negative); Specific Gravity Urine UA 1.015 (1.000-1.035); Urobilinogen Urine UA 0.2 E.U./dL (0.2)
[2018-05-22 20:07] LABS: Squamous Epithelial Cell Urine 0-1 /HPF; WBC Urine 0-1/HPF (0-5/HPF)
[2018-05-22 20:08] LABS: Amorphous Sediment Urine 1+; Culture Indicated Urine Cult Not Indicated
[2018-05-23] VITALS (9 sets, daily range): BP systolic 106–145; BP diastolic 58–107; PULSE 61–74; RESP 16–24; TEMP 36.1–36.7; O2SAT 95–99
--- NOTE | 2018-05-23 | DI.US.S_ITS ---
PROCEDURE: US THYROID INDICATIONS: hyperthyroid TECHNIQUE: Real-time scanning was performed of the thyroid gland, with image documentation. COMPARISON: None. FINDINGS: Right: Thyroid lobe measures 1.6 x 2.0 x 5.1 cm. note is made of a superior right 3 mm cyst Left: Thyroid lobe measures 1.8 x 1.8 x 4.1 cm. note is made of a left inferior 4 mm cyst. Isthmus: 2 mm thick. Lymph nodes: No regional lymphadenopathy. IMPRESSION: Normal thyroid echotexture, no solid mass is found. Note is made of a small cyst within each thyroid lobe measuring only 3-4 mm in maximal dimension. Dictated by: Rony Baca M.D. on 05/23/2018 at 13:26 Approved by: Rony Baca M.D. on 05/23/2018 at 13:27
[2018-05-23 06:08] LABS: Erythrocyte Sedimentation Rate 9 MM/HR (0-15)
--- NOTE | 2018-05-23 08:00 | PM.PN.1 ---
Subjective Date Patient Seen: 05/23/18 Time Patient Seen: 08:00 Interval history: Patient was admitted yesterday afternoon for lower extremity weakness. Apparently this is been ongoing issue but seemingly progressing to where he has difficult time ambulating. Issues at hand over long-term management of his weakness. Additionally attending to come over the diagnosis and cause of his weakness. There is some thoughts that may well be related to spinal stenosis Objective Exam Vital Signs (past 8 hours): - 05/23/18 03:00 Temperature 97.8 F Pulse Rate 61 Respiratory Rate 16 Blood Pressure 113/65 Pulse Oximetry 95 Oxygen Delivery Method Room Air Oxygen Flow Rate 97 Narrative Exam Narrative: the patient is sitting upright in his chair complaining of being cold no official exam is performed Objective Labs Result Diagrams: 05/22/18 09:00 05/22/18 09:00 Labs: Laboratory Results - last 24 hr 05/22/18 05/22/18 05/22/18 09:00 09:00 09:00 WBC 6.0 RBC 4.54 Hgb 13.5 Hct 40.1 L MCV 88.3 MCH 29.7 MCHC 33.6 RDW 13.8 Plt Count 296 Neut % (Auto) 71.5 Lymph % (Auto) 13.0 L [place] % (Auto) 10.2 Eos % (Auto) 4.2 H Baso % (Auto) 1.1 Neut # (Auto) 4300 ESR PT 11.4 INR 1.0 APTT 27 Sodium 144 Potassium 3.5 Chloride 103 Carbon Dioxide 33 H BUN 29 H Creatinine 1.00 Estimated GFR > 60.0 BUN/Creatinine Ratio 29.0 H Glucose 133 H Calcium 10.1 Total Bilirubin 0.5 AST 33 ALT 34 Alkaline Phosphatase 53 Troponin I C-Reactive Protein Total Protein 6.6 Albumin 3.9 Globulin 2.7 Albumin/Globulin Ratio 1.4 Vitamin B12 TSH Urine Color Urine Appearance Urine pH Ur Specific [place] Urine Protein Urine Glucose (UA) Urine Ketones Urine Occult Blood Urine Nitrate Urine Bilirubin Urine Urobilinogen Ur Leukocyte Esterase Urine RBC Urine WBC Ur Squamous Epith Cells Amorphous Sediment Urine Bacteria Ur Culture Indicated? Micro UA Comment 05/22/18 05/22/18 05/22/18 09:00 09:00 09:00 WBC RBC Hgb Hct MCV MCH MCHC RDW Plt Count Neut % (Auto) Lymph % (Auto) [place] % (Auto) Eos % (Auto) Baso % (Auto) Neut # (Auto) ESR PT INR APTT Sodium Potassium Chloride Carbon Dioxide BUN Creatinine Estimated GFR BUN/Creatinine Ratio Glucose Calcium Total Bilirubin AST ALT Alkaline Phosphatase Troponin I < 0.012 C-Reactive Protein < 0.5 Total Protein Albumin Globulin Albumin/Globulin Ratio Vitamin B12 641 TSH 0.06 L Urine Color Urine Appearance Urine pH Ur Specific [place] Urine Protein Urine Glucose (UA) Urine Ketones Urine Occult Blood Urine Nitrate Urine Bilirubin Urine Urobilinogen Ur Leukocyte Esterase Urine RBC Urine WBC Ur Squamous Epith Cells Amorphous Sediment Urine Bacteria Ur Culture Indicated? Micro UA Comment 05/22/18 05/23/18 18:40 05:41 WBC RBC Hgb Hct MCV MCH MCHC RDW Plt Count Neut % (Auto) Lymph % (Auto) [place] % (Auto) Eos % (Auto) Baso % (Auto) Neut # (Auto) ESR 9 PT INR APTT Sodium Potassium Chloride Carbon Dioxide BUN Creatinine Estimated GFR BUN/Creatinine Ratio Glucose Calcium Total Bilirubin AST ALT Alkaline Phosphatase Troponin I C-Reactive Protein Total Protein Albumin Globulin Albumin/Globulin Ratio Vitamin B12 TSH Urine Color Yellow Urine Appearance Sl cloudy Urine pH 7.0 Ur Specific [place] 1.015 Urine Protein Negative Urine Glucose (UA) Negative Urine Ketones Negative Urine Occult Blood Negative Urine Nitrate Negative Urine Bilirubin Negative Urine Urobilinogen 0.2 Ur Leukocyte Esterase Negative Urine RBC None seen Urine WBC 0-1/hpf Ur Squamous Epith Cells 0-1 /hpf Amorphous Sediment 1+ Urine Bacteria None seen Ur Culture Indicated? Cult not indicated Micro UA Comment Not Reportable Labs reviewed Patient has stayed decreased TSH. Ultrasound of thyroid pending. Chart review however shows he has had a low TSH for perhaps 20 years Assessment & Plan (1) Decreased thyroid stimulating hormone (TSH) level: Current visit: Yes Status: Acute Plan: Assessment/Plan Narrative: 1. Lower extremity weakness. Physical therapy to reassess. 2. Decreased TSH thyroid home almost ordered. Para 3. Social service to be involved with discharge planning. Apparently patient has some long-term game plan with referral elsewhere as per Dr. Etienne Quality VTE Deep Vein Thrombosis/Pulmonary Embolism Present on Admission: No
[2018-05-23] MEDS: ENOXAPARIN 40 MG/0.4 ML SYRINGE SUBCUT (09:28)
[2018-05-23] MEDS: LISINOPRIL 10 MG TABLET PO (09:28)
[2018-05-23] MEDS: hydroCHLOROthiazide 12.5 MG CAPSULE PO (09:28)
[2018-05-23] MEDS: DONEPEZIL 5 MG TABLET 10 MG PO (09:28)
[2018-05-23 10:42] LABS: Free T3, Triiodothyronine Free 3.05 pg/mL (2.77-5.27); T4 Total Thyroxine 8.91 ug/dL (5.5-11.0)
--- NOTE | 2018-05-23 12:25 | PT.IIE ---
Current Diagnoses Other specified abnormal findings of blood chemistry (05/22/18) Surgical History (Last Reviewed 05/15/18 @ 12:02 by Winsome Willett LPN) History of inguinal hernia repair (Resolved) Status post appendectomy (Resolved) Status post tonsillectomy and adenoidectomy (Resolved) Medical History (Last Reviewed 05/15/18 @ 12:02 by Winsome Willett LPN) BPH (benign prostatic hyperplasia) (Chronic) Physical Therapy Inpatient Evaluation/Re-Eval M1 PT/OT-IP Prior Functional Status Start: 05/23/18 11:48 Freq: NEEDED Status: Active Protocol: Document 05/23/18 11:51 IJS (Rec: 05/23/18 12:24 IJS [email or web address]) Medical Review Prior Functional Status Medical History Reviewed Yes Communication Very chatty and repeating his questions throughout the treatment, burkinan. Mobility and Gait History of several falls at home. Was using a walking stick or cane but per his he only uses his walker now. Has a 4 wheeled walker but prefers the FWW at this time as it feels more stable to him . Activities of Daily Living and IADL's He reports he is independent, his was not present when I asked. Social History Household Members spouse Living Arrangements House Number of Floors (Floors) One Floor Number of Stairs To Enter/Railing? Has moved from the upstairs to the level for living space and that is where the master bedroom is. He avoids stairs. Home Environment Standard Height Toilet Home Equipment Four Wheel Walker Straight Cane Shower Seat with Backrest Grab Bars Near Toilet Grab Bars In Shower Employment Status Retired M2 PT-IP Current Condition Start: 05/23/18 11:48 Freq: NEEDED Status: Active Protocol: Document 05/23/18 11:51 IJS (Rec: 05/23/18 12:24 IJS [email or web address]) Physical Therapy Current Condition Current Condition Evaluation Date 05/23/18 Treatment Diagnosis Walking/gait disturbance Onset Date 05/22/18 Weight Bearing Status Weight Bearing Status Full Weight Bearing Allowed Weight Bearing Amount (enter % He reports it is his right leg or #) (%) that kyle. M3 PT-IP Subjective Start: 05/23/18 11:48 Freq: NEEDED Status: Active Protocol: Document 05/23/18 11:51 IJS (Rec: 05/23/18 12:24 IJS [email or web address]) Subjective Physical Therapy Visit Type Type Initial Evaluation Visit Start Time 11:00 Visit Stop Time 11:42 Total Visit Minutes 42 Number of EDGER AUTOMATIC Visits 0 Physical Therapy Visit Comments Patient Comments Willing to get up and work with PT. Not sure why his balance is challenged or why his right leg feels weak. C/O pain behind the right knee at times then it kyle. Patient Goals Wants to return home with assistance. Therapy Pain Assessment Pain When Pain Assessed During Mobility Pain Present Pain Present Pain Reported Location Back Description Chronic Pain Management Techniques Re-positioning M4 PT-IP Mobility and Gait Start: 05/23/18 11:48 Freq: NEEDED Status: Active Protocol: Document 05/23/18 11:51 IJS (Rec: 05/23/18 12:24 IJS [email or web address]) PT-Bed Mobility Assessment Rolling Type of Rolling Roll to Left Level of Assist Standby Assistance Supine to Sit Supine to Sit Standby Assistance Scooting Scooting to Edge of Bed Standby Assistance PT-Transfer Assessment Sit to and From Stand Sit to and from Stand Contact Guard Assistance 1 Person Assistance Use of Upper Extremities Equipment Transfer Assistive Device Gait Belt Front Wheeled Walker Orthotic/Prosthetic Devices or Brace: No Transfers Transfer Destination Chair Transfer Technique Stand Step Pivot Transfer Ability Level of Assist Contact Guard Assistance Comments Mobility Comments When sitting at the edge of the bed when I began to put on the gait belt he laid straight back on the bed. When I asked about that he said he is top heavy with a long torso and short legs. He feels this is attributing to his loss of balance. Gait Assessment Gait Gait Assistance Required: Minimum Assistance Distance (Feet) 100 Able to Maintain Weight Bearing Status Yes During Gait Assistive Devices Assistive Device Front Wheeled Walker Orthotic/Prosthetic Devices or Brace: No Gait Deviations General Gait Pattern Decreased Stride Length Decreased Feet Clearance Narrow Based Gait Step-to Gait Factors Limiting Gait Function Factors Limiting Gait Function Decreased Strength Poor Balance Poor Safety Awareness Stair Climbing Assessment Comments Stair Climbing Comments He avoids stairs and has a patio entry over the grass. PT-Balance Assessment Sitting Balance and Reactions Static Sitting Balance Ability Good Dynamic Sitting Balance Ability Fair Standing Balance and Reactions Static Standing Balance Ability Fair Dynamic Standing Balance Ability Poor Functional Assessments Functional Tests Tinetti Balance and Gait Assessment 04/26 Other Functional Tests Performed High fall risk M5 PT-IP Objective Assessments Start: 05/23/18 11:48 Freq: NEEDED Status: Active Protocol: Document 05/23/18 11:51 IJS (Rec: 05/23/18 12:24 IJS [email or web address]) Orientation Orientation/Cognition Level of Alertness Alert Orientation Name Age Safety Awareness Decreased Safety Awareness Memory Description Short Term Impaired Comments Able to tell me where he is and what day it is but did repeat questions to me throughout the treatment. Gross Range of Motion Upper Extremity ROM Assessment Within Functional Limits Impairments Left bicipital pain and shoulder flexion to 130 degress Lower Extremity ROM Assessment Within Functional Limits Strength Upper Extremity Strength Assessment Within Functional Limits Lower Extremity Strength Assessment Within Functional Limits Comments Strength Comments Shoulder flexion right 4/5, hip flexion right 4/5. All other MMT grossly 5/5 but low endurance. Coordination Assessment Gross Coordination Gross Coordination WNL Sensation Assessment Sensation Gross Sensation WNL Light Touch Intact Proprioception (Position) Intact Muscle Tone Muscle Tone WNL Yes M6 PT-IP Treatment Start: 05/23/18 11:48 Freq: NEEDED Status: Active Protocol: Document 05/23/18 11:51 IJS (Rec: 05/23/18 12:24 IJS [email or web address]) Physical Therapy Treatment Exercises Exercises Ankle Pumps Shoulder Flexion Elbow Flexion/Extension Education Education Provided Safety Other Treatments Other Treatment Performed Standing with walker high marching, heel and toe raises. M7 PT-IP Assessment and Plan Start: 05/23/18 11:48 Freq: NEEDED Status: Active Protocol: Document 05/23/18 11:51 IJS (Rec: 05/23/18 12:24 IJS [email or web address]) PT Summary Assessment and Plan Potential Rehabilitation Potential Fair Status of Condition at Evaluation Evolving Summary Impairments Pain Strength Cognition Gait Activity Tolerance Assessment Summary Post admit day #1, unsteady gait and protective of his right leg demonstrating a step - type gait pattern. Blood pressure after gait/mobility 119/62, HR 68. Goals Bed Mobility Goal Independent Transfer Goal Standby Assistance Gait Goal Standby Assistance Gait Distance 150 Days to Meet Goals 3 Frequency of Treatment Frequency Of Treatment Once a Day Treatment Plan Physical Therapy Treatment Plan Bed Mobility Training Transfer Training Gait Training Therapeutic Exercise Balance Retraining Discharge Planning Recommendations To Nursing Amount of Assist Needed 1 Person Assist Discharge Recommendations PT Discharge Recommendations Home with 19/02 Assist Other Discharge Recommendations Will benefit from PT Equipment Needed for Home Before He will need a front wheeled Discharge walker.
--- NOTE | 2018-05-23 14:14 | CM.IDA ---
DCP Assessment Note: Pt is a 77 yo male, resident of [facility]. Pt presents w/weakness, inability to walk, and cognitive changes. Pt's PCP is Dr Etienne; [facility]. Introduced SW role at pt's bedside this morning, spouse not present. Pt is a pleasant man and very talkative. Pt has a tendency to repeat himself throughout the conversation but is A+O. Pt requests addtl. conversation be held w/his spouse. Pt's Nadira is 20 yrs younger then he and works time signal wirer in [employer]. Met later w/pt and spouse Nadira. Nadira explains there is no diagnosis yet for pt's cognitive decline over the last 2 years. Re: pt's functional decline; Pt has spinal stenosis and arthritis in his spine, spinal injections and outpt PT have made no lasting effect. Pt has seen neurologists, and an addtl referral will be sent by Dr Etienne to a neurologist in [place], per Nadira. Pt and spouse live on [address] pt has one surviving adult child who lives in [place]; he will be visiting this w/e and will leave Sunday night. Pt's adult dtr last year from lung cancer. Nadira feels overwhelmed by the immediate decline that has happened for pt over the last two weeks and specifically, this week (leading up to this hospitalization). Pt has been able to maneuver in his home, on the first floor, w/assist from a walking stick. This week, pt was unable to move his legs and required full assist to get up to BR. Pt has also lost a lot of weight. Nadira thinks, d/t pt's cognitive decline, he does not feel comfortable maneuvering the stove or microwave and so eats mostly yogurt (that he can grab from the fridge). Pt admits he feels either nauseas and/or like something is caught in his throat when he eats and so now he eats for sustenance only, not pleasure. Nadira adds that pt has been eating a lot of sugary drinks which is uncharacteristic. Pt follows our conversation but does seem to lack insight on the dangers of him being home alone and falling multiple times over the last month. Nadira hopes pt can DC to a SNF then come home w/increased in-home caregiving and HH. Pt has a cg, Bety Bello, assist one hour daily. Nadira has looked into the [facility] adult [facility], but the hours are not helpful for Nadira's work schedule ([facility];8:30-4). Reviewed the SNF auth process through [facility]. Nadira recognizes that pt will need increased caregiving and likely an assisted living placement in the future. This CERTIFIED ADDICTION COUNSELOR will provide numbers for [facility], in-home caregiving agencies, and residential care facilities. PT note today does not indicate pt needs SNF. Reviewed this CERTIFIED ADDICTION COUNSELOR's assessment w/ OT Radha. This CERTIFIED ADDICTION COUNSELOR will confirm medical plan (?) w/FMA team tomorrow morning and send updated PT/OT notes in the AM to [facility] to request SNF auth. Referral faxed to [facility] this afternoon by weblogic administrator Reddy. SNF choices 1. [facility] 2. [facility]. Following closely. Pt remains under obs status. PURNIMA Tanner Discharge Planning/Care Management CM Discharge Assessment Start: 05/23/18 14:08 Freq: Status: Active Protocol: Document 05/23/18 14:08 DIDI (Rec: 05/23/18 14:14 [email or web address]) Discharge Planning Assessment Assigned Wheel Borer PURNIMA Hernández DPOA/Assigned Designee Name Nadira Sanderson, spouse Contact Information [phone] Advance Directives? Yes History Provided By Patient Family Member Prior Living Arrangements House Household Members spouse Type of transporation used prior to Relies on Others admit Independent with ADL's No Is patient alert and oriented? No Needs Assistance With Bathing Grooming Meal Prep Toileting Managing Medications Home Chores / Shopping Comment Severe decline in the last two weeks. Slow decline over the last two years. Patient/Family Preference Snf Facility Comment Hopeful for DC to SNF, pt has [facility], auth process through [facility] explained to pt/spouse today. Barriers to Discharge Yes Comment See Narrative. Referrals Initiated Snf Additional Comment 1. [facility] 2. [facility] If patient plan is SNF: Has PASSR been No completed? Comment Obs Medicare Choice List Provided Yes SNF/HH Preference 1. [facility] 2. [facility] Has Agency SNF been contacted Yes Whiteboard Updated in Patient Room with Yes name and ext. # of Wheel Borer Review Status In Process
--- NOTE | 2018-05-23 14:38 | CM.DPC ---
Referral faxed to [facility] per Ana Paula
--- NOTE | 2018-05-23 17:42 | OT.IP.EVAL ---
Current Diagnoses Other specified abnormal findings of blood chemistry (05/22/18) Past Medical History (Last Reviewed 05/15/18 @ 12:02 by Winsome Willett LPN) BPH (benign prostatic hyperplasia) (Chronic) Surgical History (Last Reviewed 05/15/18 @ 12:02 by Winsome Willett LPN) History of inguinal hernia repair (Resolved) Status post appendectomy (Resolved) Status post tonsillectomy and adenoidectomy (Resolved) Occupational Therapy Inpatient Evaluation/Re-Eval M1 PT/OT-IP Prior Functional Status Start: 05/23/18 11:48 Freq: NEEDED Status: Active Protocol: Document 05/23/18 11:51 IJS (Rec: 05/23/18 12:24 IJS [id number]) Medical Review Prior Functional Status Medical History Reviewed Yes Communication Very chatty and repeating his questions throughout the treatment, greek. Mobility and Gait History of several falls at home. Was using a walking stick or cane but per his he only uses his walker now. Has a 4 wheeled walker but prefers the FWW at this time as it feels more stable to him . Activities of Daily Living and IADL's He reports he is independent, his was not present when I asked. Social History Household Members spouse Living Arrangements House Number of Floors (Floors) One Floor Number of Stairs To Enter/Railing? Has moved from the upstairs to the level for living space and that is where the master bedroom is. He avoids stairs. Home Environment Standard Height Toilet Home Equipment Four Wheel Walker Straight Cane Shower Seat with Backrest Grab Bars Near Toilet Grab Bars In Shower Employment Status Retired M1 PT/OT-IP Prior Functional Status Start: 05/23/18 16:27 Freq: NEEDED Status: Active Protocol: Document 05/23/18 16:28 CCC (Rec: 05/23/18 17:42 CCC [id number]) Medical Review Prior Functional Status Medical History Reviewed Yes Communication Very chatty and repeating his questions throughout the treatment, greek. Mobility and Gait History of several falls at home. Was using a walking stick or cane but per his he only uses his walker now. Has a 4 wheeled walker but prefers the FWW at this time as it feels more stable to him . Pt does not own FWW. Activities of Daily Living and IADL's He reports he is independent, his was not present when I asked. Pt states has to sit to put socks,pants, and shoes on and to urinate. Social History Household Members spouse Living Arrangements House Number of Stairs To Enter/Railing? Pt enters the house from the side and avoids the concrete step by going around on the grass to the deck and into the house. Pt has upstairs but does not use the steps and forbids him to do the steps. Home Environment Standard Height Toilet Tub/Shower Home Equipment Four Wheel Walker Shower Seat with Backrest Hand Held Shower Grab Bars Near Toilet Grab Bars In Shower Employment Status Retired Additional Social History Comment Pt is a retired electrical designer. M2 OT-IP Current Condition Start: 05/23/18 16:27 Freq: Status: Active Protocol: Document 05/23/18 16:28 [facility] (Rec: 05/23/18 17:42 [facility] [id number]) Occupational Therapy Current Condition Current Condition Evaluation Date 05/23/18 Treatment Diagnosis Weakness, multiple falls Diagnosis Onset Date 05/22/18 Weight Bearing Status Weight Bearing Status Full Weight Bearing Allowed Weight Bearing Amount (enter % He reports it is his right leg or #) (%) that kyle. M3 OT- IP Subjective and Pain Start: 05/23/18 16:27 Freq: Status: Active Protocol: Document 05/23/18 16:28 [facility] (Rec: 05/23/18 17:42 [facility] [id number]) OT- Subjective Occupational Therapy Visit Type Type Initial Evaluation Visit Start Time 14:30 Visit Stop Time 16:00 Total Visit Minutes 90 Occupational Therapy Visit Comments Patient/Caregiver Goals Pt's open to going to rehab as realizes that he is weak and a fall risk. OT Pain Assessment Pain When Pain Assessed At Rest Pain Present Pain Present Denied Pain M4 OT- IP ADL's Start: 05/23/18 16:27 Freq: Status: Active Protocol: Document 05/23/18 16:28 [facility] (Rec: 05/23/18 17:42 [facility] [id number]) OT ADL-Grooming General Evaluation Grooming Ability Contact Guard Assistance Minimal Assistance Comments OT Grooming Comments Pt having to lean to the counter due to decreased balance so able to do grooming needs. In addition pt needing CGA to DAVID for balance especially when using both hands and not holding onto the FWW. OT ADL-Oral Care General Eval Oral Care Ability Standby Assistance Comments Oral Care Comments Increased time for set-up of toothpaste. OT ADL-Dressing General Eval Lower Body Dressing Ability Moderate Assistance/ MAX A Areas Needing Assistance Retrieving/Set-up of Clothing Socks Comments OT Dressing Comments Pt needing MODA/MAXA to prevent from falling over while trying to manjit/doff his socks. Pt has poor trunk control and heavily relies on his arm on the bed for balance. OT ADL-Toileting Comments OT Toileting Comments Pt states heavily use of grab bars in the bathroom for transfers. OT ADL-Bathing Comments OT Bathing Comments Pt's states now looking to get tub bench as currently they have shower chair with back rest, HHSP, and grab bars . M5 OT- IP IADL's Start: 05/23/18 16:27 Freq: Status: Active Protocol: Document 05/23/18 16:28 [facility] (Rec: 05/23/18 17:42 [facility] [id number]) OT-Instrumental Activities of Daily Living Medication Management Medication Management Caregiver Administers Money Management Money Management Caregiver Provides Assistance Meal Preparation Meal Preparation Caregiver Provides Assist Meal Preparation Comments Pt's states leaves prepared items for pt to eat in the refrigerator or heat up in the microwave. Dealer Card Room Dealer Card Room Caregiver Provides Assist Driving Driving Comments Pt no longer drives. M6 OT- IP Functional Cognition Start: 05/23/18 16:27 Freq: Status: Active Protocol: Document 05/23/18 16:28 [facility] (Rec: 05/23/18 17:42 [facility] [email or web address]) Cognitive Factors Limiting Selfcare Function Cognitive Ability Level of Alertness Alert Patient Orientation Name Attention Span Ability Capable of Focused Attention Unable to Sustain Attention Ability to Follow Commands Able to Follow One Step Commands Memory Description Short Term Impaired Safety Awareness Underestimates Need for Assistance Problem Solving Ability Unable to Identify Errors Needs Assist to Identify Solutions Executive Function Ability Unable to Remember Details Cognitive Tests SLUMS Pt scored 14/30 which implies cognitive deficits and having difficulty with short term memory, math calculations, accurately drawing out and spacing numbers on the clock. Cognitive Comments Cognitive Assessment Comments Pt has decreased insight of deficits, poor safety awareness, and impulsive. Pt forgetting to have FWW in front of him at all times, letting go of the walker before turning all the way before sitting down. Pt would benefit from 19/02 assist at home due to decreased safety awareness at this time. Pt's works and not home during the day. OT- Vision and Hearing OT- Hearing Assessment OT- Hearing Assessment WFL M7 OT- IP Mobility and Balance Start: 05/23/18 16:27 Freq: Status: Active Protocol: Document 05/23/18 16:28 [facility] (Rec: 05/23/18 17:42 [facility] [id number]) OT- Bed Mobility Assessment Rolling Type of Rolling Roll to Right Level of Assistance Contact Guard Assistance Supine to Sit Supine to Sit Assist Minimal Assistance Sit to Supine Sit to Supine Assist Minimal Assistance OT-Transfer Assessment Sit to and From Stand Sit to and from Stand Minimal Assistance Transfers Transfer Ability Minimal Assistance Moderate Assistance Technique Transfer Destination Bed Chair Transfer Technique Stand Step Pivot Devices Transfer Assistive Devices Gait Belt Front Wheeled Walker Comments Mobility Comments Pt places left knee on the bed to crawl into bed, pt needing DAVID for balance. Prior to weakness, pt able to sit down to the bed and get into the bed. Pt states tends to be Top Heavy. Pt has poor trunk control/ awareness to be able to keep himself from falling backwards while sitting on the end of the bed. Pt has difficulty as tends to sit into posterior tilt and at times leans backwards and unable to right himself from falling backwards on the bed. Pt needing MAX A from falling backwards onto the bed. OT- Gait Assessment Gait Gait Assistance Required: Minimum Assistance Moderate Assistance Assistive Devices Assistive Device Gait Belt Front Wheeled Walker Comments Gait Ability Comments Pt tend needs physical guidance to guide FWW as tend to push FWW to the right and body not lined up within the walker. In addition due to right LE weakness has difficulty to have right leg step through, therefore step two gait pattern. Pt states at times, right leg just kyle on him and can cause him to fall. Pt states has has 5-6 falls at home in the past month. Pt heavily relies on his arms on the FWW during functional mobility. As pt tires after walking 10 ft noted pt dragging his right leg and resulting and more physical assist to walk, MODA. OT- Balance Assessment Sitting Balance and Reactions Static Sitting Balance Ability Fair Dynamic Sitting Balance Ability Poor Standing Balance and Reactions Static Standing Balance Ability Poor Dynamic Standing Balance Ability Poor Balance Tests Functional Reach Test Pt not able to reach forwards, therefore high fall risk M8 OT- IP Objective Assessments Start: 05/23/18 16:27 Freq: Status: Active Protocol: Document 05/23/18 16:28 [facility] (Rec: 05/23/18 17:42 [facility] [id number]) OT Gross Range of Motion Upper Extremity Range of Motion Assessment Within Functional Limits OT Strength Upper Extremity Strength Assessment Within Functional Limits Comments Strength Comments BUE strength 4+/5 to 4/5. OT- Coordination Assessment Upper Extremity Finger to Nose Test Right UE Impaired Comments Coordination Comments Right more off centered from left finger to nose. Pt needing increased time for FMS to open tab of toothpaste. Pt able to do finger to thumb opposition with both hand accurately. OT-Muscle Tone Assessment Muscle Tone WNL Yes OT Sensation Assessment Comments Summary Comments Mild decreased from sensation for left wrist to distal. M9 OT- IP Assessment and Plan Start: 05/23/18 16:27 Freq: Status: Active Protocol: Document 05/23/18 16:28 [facility] (Rec: 05/23/18 17:42 [facility] [email or web address]) OT Summary Assessment and Plan Potential Rehabilitation Potential Good Analytic Complexity at Evaluation Moderate Summary OT Impairments Strength Balance Coordination Sensation Functional Cognition Functional Mobility Grooming Dressing Toileting Bathing Toilet Transfers Shower Transfers Progress Towards Goals Slow Progress due to Medical Issues Slow Progress due to Activity Tolerance Slow Progress due to Cognition Assessment Summary Pt MOD complexity due to barriers of decreased sitting and standing balance, decreased trunk control and awareness of midline, decreased safety awareness, decreased proprioception and kinesthesia with right arm from elbow to distal, poor short term memory, and now needing assist for all needs especially for safety. Pt is a high fall risk and would benefit from skilled rehab to continue to go over safety awareness, work on trunk control,strength, balance, endurance , to help get pt back to prior level of VIDAL with ADl's and functional mobility with FWW. Goals Self-Feeding Goal Independent Grooming Goal Standby Assistance Dressing Goal Contact Guard Assistance Toileting Goal Standby Assistance Bathing Goal Minimal Assistance Toilet Transfer Goal Standby Assistance Shower Transfer Goal Minimal Assistance Patient/Caregiver Education Goal Caregiver Independent Assisting Patient OT-Other Goals DAVID for LB dressing, pt to be able to use the call light 100% to call for assist-STG LTG: see above Days to Meet Goals 7 Frequency of Treatment Frequency Of Treatment Once a Day Treatment Plan OT Treatment Plan ADL Training Functional Cognition Training Functional Mobility Patient/Family Education Discharge Planning Other Treatment Recommendations and Next Midline education while Treatment Focus sitting on the edge of the bed . Pt to be able to do LB dressing with good safety and awareness of body postion and DAVID. Discharge Recommendations OT Discharge Recommendations SNF Rehab Home Equipment Needs Tub bench, FWW
[2018-05-24] VITALS (9 sets, daily range): BP systolic 120–152; BP diastolic 69–82; PULSE 62–72; RESP 16–20; TEMP 36.4–36.6; O2SAT 94–98
--- NOTE | 2018-05-24 08:23 | PM.PN.1 ---
Subjective Date Patient Seen: 05/24/18 Time Patient Seen: 08:23 Interval history: Patient seen and evaluated doing well this morning. Requires 2 persons assist with getting up and going to the bathroom. Quite impulsive. Does not uses walker in the [place] at supposed to. Still high risk of fall. He is unsteady on his gait. Otherwise he says he is feeling fine. Little bit confused at times. He does recognize me know he is at [facility]. Wondering what the next steps up plan are. Discussion with his yesterday. Trying to make arrangements either with home care assisted living or [facility] and all arrangements can be made long-term for the correct appropriate care provided for him. Further workup and evaluation of his TSH which has been low. Consistent probably Graves disease. Exam Vital Signs (past 8 hours): - 05/24/18 00:47 05/24/18 00:48 05/24/18 04:00 Temperature 97.7 F 97.9 F Pulse Rate 62 72 Respiratory Rate 18 18 Blood Pressure 141/82 H 149/72 H Pulse Oximetry 95 95 96 Oxygen Delivery Method Room Air Oxygen Flow Rate 0 Narrative Exam Narrative: Gen.: Alert oriented impulsive. Unsure of the date HEENT: Pupils equal round and reactive or mucosa is moist neck is supple Cardio: S1-S2 regular rate and rhythm Respiratory: Lungs are clear to auscultation no wheezes or crackles normal respiratory effort. Abdomen: Soft nontender no rebound or guarding no liver spleen enlargement no appreciable hernias Extremities: Lower extremity weakness Neurologic: Grossly intact. Objective Labs Result Diagrams: 05/22/18 09:00 05/22/18 09:00 Labs: Laboratory Results - last 24 hr 05/23/18 08:30 Thyroxine (T4) 8.91 Free T3 3.05 Assessment & Plan Plan: Assessment/Plan Narrative: Inability to ambulate falls weakness neural cognitive changes all progressive. Patient still quite impulsive. Needs 2 person assistance. Will continue work his local therapy occupational therapy. workers compensation coordinator will have a discussion with his about long-term care plans whether he will go home with full-time care or [facility] to participate in physical therapy before he goes back home. BPH symptoms. He is allergic to sulfa. He is not tolerating Flomax. Will go ahead and start finasteride 5 mg daily. Hypo for thyroidism consistent with probable Graves. Start methimazole 5 mg a day recheck TSH in 4 weeks. Hypertension. He is currently on an antihypertensive medication will continue with this blood pressure is stable DVT prophylaxis with Lovenox. Disposition plan physical therapy medical social worker evaluation possible placement in [facility]. Or home with the home health and caregivers. Quality VTE Deep Vein Thrombosis/Pulmonary Embolism Present on Admission: No
--- NOTE | 2018-05-24 08:27 | P.PN_ITS ---
Subjective Date Patient Seen: 05/24/18 Time Patient Seen: 08:23 Interval history: Patient seen and evaluated doing well this morning. Requires 2 persons assist with getting up and going to the bathroom. Quite impulsive. Does not uses walker in the [place] at supposed to. Still high risk of fall. He is unsteady on his gait. Otherwise he says he is feeling fine. Little bit confused at times. He does recognize me know he is at [facility]. Wondering what the next steps up plan are. Discussion with his yesterday. Trying to make arrangements either with home care assisted living or [facility] and all arrangements can be made long-term for the correct appropriate care provided for him. Further workup and evaluation of his TSH which has been low. Consistent probably Graves disease. Exam Vital Signs (past 8 hours): - 05/24/18 00:47 05/24/18 00:48 05/24/18 04:00 Temperature 97.7 F 97.9 F Pulse Rate 62 72 Respiratory Rate 18 18 Blood Pressure 141/82 H 149/72 H Pulse Oximetry 95 95 96 Oxygen Delivery Method Room Air Oxygen Flow Rate 0 Narrative Exam Narrative: Gen.: Alert oriented impulsive. Unsure of the date HEENT: Pupils equal round and reactive or mucosa is moist neck is supple Cardio: S1-S2 regular rate and rhythm Respiratory: Lungs are clear to auscultation no wheezes or crackles normal respiratory effort. Abdomen: Soft nontender no rebound or guarding no liver spleen enlargement no appreciable hernias Extremities: Lower extremity weakness Neurologic: Grossly intact. Objective Labs Result Diagrams: 05/22/18 09:00 05/22/18 09:00 Labs: Laboratory Results - last 24 hr 05/23/18 08:30 Thyroxine (T4) 8.91 Free T3 3.05 Assessment & Plan Plan: Assessment/Plan Narrative: Inability to ambulate falls weakness neural cognitive changes all progressive. Patient still quite impulsive. Needs 2 person assistance. Will continue work his local therapy occupational therapy. 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 BPH symptoms. He is allergic to sulfa. He is not tolerating Flomax. Will go ahead and start finasteride 5 mg daily. Hypo for thyroidism consistent with probable Graves. Start methimazole 5 mg a day recheck TSH in 4 weeks. Hypertension. He is currently on an antihypertensive medication will continue with this blood pressure is stable DVT prophylaxis with Lovenox. 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 Or home with the home health and caregivers. Quality VTE Deep Vein Thrombosis/Pulmonary Embolism Present on Admission: No
[2018-05-24] MEDS: SODIUM CHLORIDE 0.9% FLUSH 10 ML IV ×2 (10:19→20:07)
[2018-05-24] MEDS: methIMAzole 5 MG TABLET PO (10:19)
--- NOTE | 2018-05-24 10:36 | CM.DPC ---
[facility] auth request faxed to Elroy Goss
--- NOTE | 2018-05-24 11:34 | PT.IPTN ---
Current Diagnoses Other specified abnormal findings of blood chemistry (05/22/18) Physical Therapy Treatment Note M2 PT-IP Current Condition Start: 05/23/18 11:48 Freq: NEEDED Status: Active Protocol: Document 05/23/18 11:51 IJS (Rec: 05/23/18 12:24 IJS [email or web address]) Physical Therapy Current Condition Current Condition Evaluation Date 05/23/18 Treatment Diagnosis Walking/gait disturbance Onset Date 05/22/18 Weight Bearing Status Weight Bearing Status Full Weight Bearing Allowed Weight Bearing Amount (enter % He reports it is his right leg or #) (%) that kyle. M3 PT-IP Subjective Start: 05/23/18 11:48 Freq: NEEDED Status: Active Protocol: Document 05/24/18 11:17 SA (Rec: 05/24/18 11:33 [id number]) Subjective Physical Therapy Visit Type Type Treatment Note Visit Start Time 10:44 Visit Stop Time 11:14 Total Visit Minutes 30 Number of AUTO BODY REPAIRER Visits 1 Physical Therapy Visit Comments Patient Comments Pt found sitting up in bed and agreeable to PT. Pt provided extensive explanation about his inconsistant balance and occasional R knee weakness. Therapy Pain Assessment Pain When Pain Assessed During Mobility Pain Present Pain Present Denied Pain M4 PT-IP Mobility and Gait Start: 05/23/18 11:48 Freq: NEEDED Status: Active Protocol: Document 05/24/18 11:17 SA (Rec: 05/24/18 11:33 [id number]) PT-Bed Mobility Assessment Rolling Type of Rolling Roll to Left Supine to Sit Supine to Sit Standby Assistance Scooting Scooting to Edge of Bed Standby Assistance PT-Transfer Assessment Sit to and From Stand Sit to and from Stand Contact Guard Assistance 1 Person Assistance Use of Upper Extremities Equipment Transfer Assistive Device Gait Belt Front Wheeled Walker Orthotic/Prosthetic Devices or Brace: No Transfers Transfer Destination Bed Chair Toilet Transfer Ability Level of Assist Contact Guard Assistance Comments Mobility Comments Pt ambulated into bathroom with FWW then placed FWW sideways in doorway and attempted to walk around it to get to toilet, educated pt on safe use of FWW as he often places it off to side and creates obstacle that he has to step around. Gait Assessment Gait Gait Assistance Required: Minimum Assistance Distance (Feet) 120 Able to Maintain Weight Bearing Status Yes During Gait Assistive Devices Assistive Device Front Wheeled Walker Orthotic/Prosthetic Devices or Brace: No Gait Deviations General Gait Pattern Decreased Stride Length Decreased Feet Clearance Step-to Gait Factors Limiting Gait Function Factors Limiting Gait Function Decreased Activity Tolerance Decreased Strength Difficulty Following Directions Poor Safety Awareness Comments Gait Comments Pt presents with step to gait pattern and often shufling gait, is very unsafe with turning as he does not use FWW correctly and places it to side and too far out in front of him so it offers very little support, when cued for correct use pt offers illogical reasoning for useing FWW this way. PT-Balance Assessment Comments Other Balance Tests/Deviations/Treatment TUG balance assessment : completed with overall time of 35 seconds which indicates high risk of falls. Functional Assessments Functional Tests Timed Up and Go 35 Other Functional Tests Performed Pt is high fall risk M5 PT-IP Objective Assessments Start: 05/23/18 11:48 Freq: NEEDED Status: Active Protocol: Document 05/23/18 11:51 IJS (Rec: 05/23/18 12:24 IJS [email or web address]) Orientation Orientation/Cognition Level of Alertness Alert Orientation Name Age Safety Awareness Decreased Safety Awareness Memory Description Short Term Impaired Comments Able to tell me where he is and what day it is but did repeat questions to me throughout the treatment. Gross Range of Motion Upper Extremity ROM Assessment Within Functional Limits Impairments Left bicipital pain and shoulder flexion to 130 degress Lower Extremity ROM Assessment Within Functional Limits Strength Upper Extremity Strength Assessment Within Functional Limits Lower Extremity Strength Assessment Within Functional Limits Comments Strength Comments Shoulder flexion right 4/5, hip flexion right 4/5. All other MMT grossly 5/5 but low endurance. Coordination Assessment Gross Coordination Gross Coordination WNL Sensation Assessment Sensation Gross Sensation WNL Light Touch Intact Proprioception (Position) Intact Muscle Tone Muscle Tone WNL Yes M6 PT-IP Treatment Start: 05/23/18 11:48 Freq: NEEDED Status: Active Protocol: Document 05/24/18 11:33 SA (Rec: 05/24/18 11:33 [id number]) Physical Therapy Treatment Exercises Exercises Ankle Pumps Gluteal Sets Quad Sets Seated Knee Flexion/Extension Education Education Provided Safety M7 PT-IP Assessment and Plan Start: 05/23/18 11:48 Freq: NEEDED Status: Active Protocol: Document 05/24/18 11:17 SA (Rec: 05/24/18 11:33 [id number]) PT Summary Assessment and Plan Potential Rehabilitation Potential Fair Status of Condition at Evaluation Evolving Summary Assessment Summary Pt unsteady with gait and demonstrates poor safety awareness and unsafe use of AD, especially with turns and in tight spaces. Recommendations To Nursing Amount of Assist Needed 1 Person Assist Discharge Recommendations PT Discharge Recommendations SNF Rehab Other Discharge Recommendations Pt would benefit from safety and balance training to reduce continued risk of falls.
[2018-05-24] MEDS: hydroCHLOROthiazide 12.5 MG CAPSULE PO (12:55)
[2018-05-24] MEDS: ENOXAPARIN 40 MG/0.4 ML SYRINGE SUBCUT (12:56)
[2018-05-24] MEDS: DONEPEZIL 5 MG TABLET 10 MG PO (12:56)
[2018-05-24] MEDS: LISINOPRIL 10 MG TABLET PO (13:17)
--- NOTE | 2018-05-24 13:41 | OT.IP.TRT ---
Current Diagnoses Other specified abnormal findings of blood chemistry (05/22/18) Occupational Therapy Treatment Note M2 OT-IP Current Condition Start: 05/23/18 16:27 Freq: Status: Active Protocol: Document 05/23/18 16:28 [facility] (Rec: 05/23/18 17:42 [facility] [id number]) Occupational Therapy Current Condition Current Condition Evaluation Date 05/23/18 Treatment Diagnosis Weakness, multiple falls Diagnosis Onset Date 05/22/18 Weight Bearing Status Weight Bearing Status Full Weight Bearing Allowed Weight Bearing Amount (enter % He reports it is his right leg or #) (%) that kyle. M3 OT- IP Subjective and Pain Start: 05/23/18 16:27 Freq: Status: Active Protocol: Document 05/24/18 13:18 [facility] (Rec: 05/24/18 13:41 [facility] [id number]) OT- Subjective Occupational Therapy Visit Type Type Treatment Note Visit Start Time 11:35 Visit Stop Time 12:35 Total Visit Minutes 60 Occupational Therapy Visit Comments Patient Comments Pt's present for last part of OT treatment. states able to get tub bench for pt. OT Pain Assessment Pain When Pain Assessed At Rest Pain Present Pain Present Denied Pain M4 OT- IP ADL's Start: 05/23/18 16:27 Freq: Status: Active Protocol: Document 05/24/18 13:18 [facility] (Rec: 05/24/18 13:41 [facility] [id number]) OT ADL-Dressing General Eval Upper Body Dressing Ability Contact Guard Assistance Lower Body Dressing Ability Moderate Assistance Areas Needing Assistance Retrieving/Set-up of Clothing Socks Comments OT Dressing Comments Pt having better balance today however still needing DAVID for while standing before pulling up brief and CGA while leaning to manjit/doff socks. Pt needs vc to sit to manjit brief. Pt needs assist for orientation of brief. OT ADL-Toileting General Evaluation Toileting Ability Contact Guard Assistance Devices Toileting Assistive Devices Grab Bars Comments OT Toileting Comments CGA and heavy use of grab bars to descend down to the toilet . OT ADL-Bathing Bathing Type Bathing Type Shower General Evaluation Bathing Ability Minimal Assistance Areas Needing Assistance Retrieving/Setting Up Items Wash/Dry Back Devices Bathing Equipment Shower Chair with Arms Grab Bars Comments OT Bathing Comments CGA to DAVID while standing to do pericare and heavy use of grab bars. Pt needing DAVID for balance when letting go of grab bars with both hands. Pt able to remember to sit to wash his legs. M5 OT- IP IADL's Start: 05/23/18 16:27 Freq: Status: Active Protocol: Document 05/23/18 16:28 [facility] (Rec: 05/23/18 17:42 [facility] [id number]) OT-Instrumental Activities of Daily Living Medication Management Medication Management Caregiver Administers Money Management Money Management Caregiver Provides Assistance Meal Preparation Meal Preparation Caregiver Provides Assist Meal Preparation Comments Pt's states leaves prepared items for pt to eat in the refrigerator or heat up in the microwave. Wrapper Stemmer Operator Wrapper Stemmer Operator Caregiver Provides Assist Driving Driving Comments Pt no longer drives. M6 OT- IP Functional Cognition Start: 05/23/18 16:27 Freq: Status: Active Protocol: Document 05/24/18 13:18 [facility] (Rec: 05/24/18 13:41 [facility] [id number]) Cognitive Factors Limiting Selfcare Function Cognitive Ability Level of Alertness Alert Patient Orientation Name Attention Span Ability Capable of Focused Attention Capable of Sustained Attention Ability to Follow Commands Able to Follow One Step Commands with Increased Time Able to Follow One Step Commands with Repetition Memory Description Short Term Impaired Working Impaired Safety Awareness Underestimates Need for Assistance Problem Solving Ability Unable to Identify Errors Needs Assist to Identify Solutions Executive Function Ability Unable to Filter Distractions Unable to Make Plans Unable to Organize Plans Unable to Remember Details Cognitive Comments Cognitive Assessment Comments Pt needs vc for safety and steps to sequence through ADL task. M7 OT- IP Mobility and Balance Start: 05/23/18 16:27 Freq: Status: Active Protocol: Document 05/24/18 13:18 [facility] (Rec: 05/24/18 13:41 [facility] [id number]) OT- Bed Mobility Assessment Rolling Type of Rolling Roll to Right Supine to Sit Supine to Sit Assist Minimal Assistance Scooting Scooting to Edge of Bed Contact Guard Assistance OT-Transfer Assessment Sit to and From Stand Sit to and from Stand Contact Guard Assistance Transfers Transfer Ability Contact Guard Assistance Minimal Assistance Technique Transfer Destination Chair Toilet Transfer Technique Stand Step Pivot Devices Transfer Assistive Devices Gait Belt Front Wheeled Walker Comments Mobility Comments Pt still poor control with trunk and not able to correct himself to prevent from falling backwards, needing MAX A to keep from falling backwards. Pt still needing assist to guide FWW especially with turns and backing up to surfaces. M8 OT- IP Objective Assessments Start: 05/23/18 16:27 Freq: Status: Active Protocol: Document 05/23/18 16:28 [facility] (Rec: 05/23/18 17:42 [facility] [id number]) OT Gross Range of Motion Upper Extremity Range of Motion Assessment Within Functional Limits OT Strength Upper Extremity Strength Assessment Within Functional Limits Comments Strength Comments BUE strength 4+/5 to 4/5. OT- Coordination Assessment Upper Extremity Finger to Nose Test Right UE Impaired Comments Coordination Comments Right more off centered from left finger to nose. Pt needing increased time for FMS to open tab of toothpaste. Pt able to do finger to thumb opposition with both hand accurately. OT-Muscle Tone Assessment Muscle Tone WNL Yes OT Sensation Assessment Comments Summary Comments Mild decreased from sensation for left wrist to distal. M9 OT- IP Assessment and Plan Start: 05/23/18 16:27 Freq: Status: Active Protocol: Document 05/24/18 13:18 [facility] (Rec: 05/24/18 13:41 [facility] [id number]) OT Summary Assessment and Plan Potential Rehabilitation Potential Good Analytic Complexity at Evaluation Moderate Summary OT Impairments Strength Balance Coordination Sensation Functional Cognition Functional Mobility Grooming Dressing Toileting Bathing Toilet Transfers Shower Transfers Progress Towards Goals Slow Progress due to Medical Issues Slow Progress due to Activity Tolerance Slow Progress due to Cognition Assessment Summary Pt continues to have decreased safety awareness, insight and dynamic balance and if a high fall risk. Pt will continue to benefit from skilled rehab to work on safety and balance needs for ADl's and functional mobility. Goals Self-Feeding Goal Independent Grooming Goal Standby Assistance Dressing Goal Contact Guard Assistance Toileting Goal Standby Assistance Bathing Goal Contact Guard Assistance Toilet Transfer Goal Standby Assistance Shower Transfer Goal Standby Assistance Patient/Caregiver Education Goal Caregiver Independent Assisting Patient Days to Meet Goals 5 Frequency of Treatment Frequency Of Treatment Once a Day Treatment Plan OT Treatment Plan ADL Training Functional Cognition Training Functional Mobility Patient/Family Education Discharge Planning Discharge Recommendations OT Discharge Recommendations SNF Rehab Home Equipment Needs Luz pierre, MARIANNA
--- NOTE | 2018-05-24 16:12 | PC.NURSE ---
Pt awake, alert resting quietly in bed. Spouse is present @ bedside. Pt denies pain and is very conversant. Becomes guarded when asked orientation questions and spouse has to encourage pt to answer questions as staff has asked. Takes several minutes to respond to month and year, but states correctly. Pt was shown how to use call light and is able to provide return demonstration. Bed alarm set for pt safety.
--- NOTE | 2018-05-24 16:17 | CM.DPC ---
DCP Cont: Pt accepted to [facility] and Farrah w/ [facility] has reviewed and states pt meets criteria for authorization to SNF; accepting facility: [facility]. 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 Both pt and spouse agreeable to DC to [facility], Sunday is expected. Provided Nadira copies from [place] [facility] that included [facility], instrument setter resources, and [facility] care facility options. Nadira appreciative. P: [facility] Sunday, need to place call to Salima at [facility] w/e P# [phone] to update if/when pt is DC. PURNIMA Tanner
[2018-05-24 16:22] LABS: Ceruloplasmin 26 mg/dL (18-36)
--- NOTE | 2018-05-24 21:13 | PC.NURSE ---
Pt has requested assistance to toilet numerous times this evening shift. Post void bladder scan 80 cc's. Denies any urinary discomfort. Requires reminder to use walker. Has unsteady, shuffling gait. Denies pain. Bed alarm in place for pt safety. Not consistently compliant with call light use.
[2018-05-25 00:40] VITALS: O2SAT 96
[2018-05-25 03:00] VITALS: BP 143/70; PULSE 73; RESP 16; TEMP 37.2; O2SAT 95
[2018-05-25 08:06] VITALS: BP 136/75; PULSE 69; RESP 16; TEMP 36.3; O2SAT 96
[2018-05-25 08:10] VITALS: O2SAT 96
[2018-05-25] MEDS: ENOXAPARIN 40 MG/0.4 ML SYRINGE SUBCUT (09:30)
[2018-05-25] MEDS: DONEPEZIL 5 MG TABLET 10 MG PO (09:30)
[2018-05-25] MEDS: hydroCHLOROthiazide 12.5 MG CAPSULE PO (09:31)
[2018-05-25] MEDS: SODIUM CHLORIDE 0.9% FLUSH 10 ML IV (09:31)
[2018-05-25] MEDS: methIMAzole 5 MG TABLET PO (09:31)
[2018-05-25] MEDS: LISINOPRIL 10 MG TABLET PO (09:31)
--- NOTE | 2018-05-25 09:37 | P.DS_ITS ---
History of Present Illness Chief complaint: cognitive problems, slurring, cannot walk Narrative: Patient seen and evaluated in the emergency department he is there with his . They live ongoing with [place]. Patient has been seen by me for the last 10 years or so. Over the last 3-5 years he has had a gradual progression decline in his strength in his lower extremities. He has had increasing difficulty with weakness. Balance and coordination which has worsened. This began with workup about 3 years ago. Patient had an MRI of his head and also of his neck. He had laboratory could testing including vitamin B12 folic acid inflammatory markers heavy metals and RPR. Patient solid neurologist at that point. He was diagnosed with an ataxic gait of unknown etiology. Since that time things have progressed. In last year he started to having to use a walker. His cognition is decreased a little bit. He is no longer able to remember things like he used to. He had a follow-up appointment with a different neurologist Dr. Nevarez tellabner. And no unifying conclusive diagnosis was made had a repeat of his MRI of his brain. His MRI show chronic microvascular ischemic changes and age-related atrophy. But no specific concerns. Things have continued to progress and over the last month. He has become more and more weak having more more times of forgetfulness. Now he cannot walk without a walker. He is following. He was brought to the emergency room most recently by his who states on Sunday he could not walk she could not help transport him and could not get him up out of bed or to the bathroom. He presents to the emergency department. Emergency room laboratory testing is normal. Blood pressure is normal. Heart rhythm monitoring is normal. Lumbar spine x-rays normal chest x-ray is normal CT scan shows old changes. On my examination his baseline cognition is there. But he is a fairly good historian with his at his bedside. I did not get him up to walk. Discharge Providers Date of admission: 05/22/18 12:04 Primary care physician: Jose Etienne MD Consults: 05/22/18 16:42 Consult to Dietitian, Adult Routine Comment: Reason For Exam: calorie deficient 05/23/18 07:57 Consult to Physical Therapy Evaluate & Treat Comment: Physician Instructions: Evaluate and Treat 05/23/18 07:58 Consult to Occupational Therapy Evaluate & Treat Comment: Physician Instructions: Evaluate and treat Consult to Post Production Assistant Routine Comment: Discharge provider: Jose Etienne MD Discharge Date: 05/25/18 Summary Discharge Diagnosis: Inability to ambulate multifactorial unknown etiology Hyperthyroidism Graves disease BPH Hypertension Hospital Course: Patient was brought to the hospital into the emergency room because of frequent falls and inability to ambulate. He was admitted the hospital for further evaluation. Patient in the past has had multiple workups including MRI cervical lumbar spine and appointments with Neurology. No definitive diagnosis has been made. Despite the his ongoing workup. Patient has continued to follow home. And was brought in the hospital because he is requiring more support than his family can provide. During his hospital stay he was very impulsive. Had difficulty with the working with physical therapy due to his impulsivity. He had mild baseline cognitive decline and confusion. During his stay he ate well. He did ambulate with assistance and help. He required 2 persons. The time of discharge his vital signs were stable he is taking his medication. Exam Vital Signs (past 8 hours): - 05/25/18 03:00 05/25/18 08:06 05/25/18 08:10 Temperature 99.0 F 97.3 F L Pulse Rate 73 69 Respiratory Rate 16 16 Blood Pressure 143/70 H 136/75 Pulse Oximetry 95 96 96 Oxygen Delivery Method Room Air Oxygen Flow Rate 0 Narrative Exam Narrative: Gen.: Mild confusion alert unsure of the day and time HEENT: NCAT PERRLA tympanic membranes are clear nares are patent oral mucosa is moist no tonsillar hypertrophy neck is supple without lymphadenopathy no thyroid enlargement. Cardio: S1-S2 regular rate and rhythm no murmurs appreciated. Respiratory: Lungs are clear to auscultation no wheezes or crackles normal respiratory effort. Abdomen: Soft nontender no rebound or guarding no liver spleen enlargement no appreciable hernias Extremities: Full range of motion no appreciable weakness no cyanosis or edema. Neurologic: Grossly intact. Objective Labs Result Diagrams: 05/22/18 09:00 05/22/18 09:00 Labs: Laboratory Results - last 24 hr 05/22/18 09:00 Ceruloplasmin 26 Discharge Plan Discharge Plan Discharge Problem: Weakness, Multiple falls Patient Disposition: SNF Transfer to: [facility] Transportation: Facility vehicle I certify the postop hospital longterm care is medically necessary on a continuing basis for any conditions for which he/ she received care during this hospitalization.: Yes The receiving facility has agreed to accept transfer and provide medical treatment.: Yes Discharge Med Rec/Prescriptions Prescriptions: New lisinopril 10 mg Tablet 10 mg PO DAILY Qty: 30 RF: 3 methimazole 5 mg Tablet 5 mg PO DAILY Qty: 30 RF: 0 Continue donepezil 10 mg Tablet 10 mg PO DAILY RF: 0 vitamin B complex Tablet 1 tab PO DAILY RF: 0 Probiotic 1 cap PO DAILY RF: 0 Vitamin D3 1 cap PO DAILY RF: 0 multivitamin 1 tab PO DAILY RF: 0 vitamin E 1 cap PO DAILY RF: 0 Discontinued lisinopril-hydrochlorothiazide 10-12.5 mg tablet 1 tab PO QDAY Qty: 90 RF: 3 Follow up/Referrals: Jose Etienne MD [Primary Care Provider] - Discharge Health Status Multidrug resistant organism: No MDRO Date verified: 05/25/18 Precautions: [place] Provider Discharge Instructions Diet: Diet as Tolerated Liquid consistency: Normal/Thin [facility] Reason for rehabilitation: Recovery r/t decondition Rehab type: Physical therapy and Occupational therapy Visit Report/Discharge Packet Visit Report Forms: Stroke Signs & Symptoms Discharge Data Primary Care Provider: Jose Etienne Attending Provider: Jose Etienne Admit Date/Time: 05/22/18 12:04 Quality VTE Deep Vein Thrombosis/Pulmonary Embolism Present on Admission: No
--- NOTE | 2018-05-25 11:22 | PC.NURSE ---
Discharge: Called report to Barbara with updated status, discharge packet given to transporter, wheeled out by [facility] staff.
--- NOTE | 2018-05-25 15:38 | CM.DANOTE ---
DCP/Continued: Reviewed chart. Spoke with Dr. Etienne this AM and he reports that patient is medically stable to d/c to SNF. First SNF choice is [facility]. Reviewed notes indicating that [facility] had authorized. Received call from [facility] this AM indicating that they need to confirm authorization with [facility] Network Security Architect? In the meantime, orders for SNF discharge completed by Dr. Etienne. Placed call to Barbara at [facility] to confirm that they could accept. Per Barbara they can accept today. Barbara requesting records be faxed because she did not receive them yesterday? confirmation fax reports otherwise. Regardless faxed all records, and orders. Confirmed with Barbara that fax had been received. Also received return phone call from [facility] indicating that they will authorize short SNF stay. They plan to call spouse and let her know. PROMOTIONAL MARKETING AGENT met with patient, spouse, and son to confirm d/c plan. Patient in agreement to go to [facility] today for short stay. Spouse reports that she is working with friends on [facility] to try to secure caregiver when patient discharges from [facility]. P: [facility] today. RN updated. chemical lab supervisor scheduled for 1:00pm. PURNIMA Butterfield
--- NOTE | 2018-05-29 15:42 | PT.IPTN ---
Current Diagnoses Thyrotoxicosis with diffuse goiter without thyrotoxic crisis or storm (05/22/18) Essential (primary) hypertension (05/22/18) Dorsalgia, unspecified (05/22/18) Benign prostatic hyperplasia without lower urinary tract symptoms (05/22/18) Ataxic gait (05/22/18) Slurred speech (05/22/18) Weakness (05/22/18) History of falling (05/22/18) Physical Therapy Treatment Note M2 PT-IP Current Condition Start: 05/23/18 11:48 Freq: NEEDED Status: Discharge Protocol: Document 05/23/18 11:51 [facility] (Rec: 05/23/18 12:24 [facility] [id number]) Physical Therapy Current Condition Current Condition Evaluation Date 05/23/18 Treatment Diagnosis Walking/gait disturbance Onset Date 05/22/18 Weight Bearing Status Weight Bearing Status Full Weight Bearing Allowed Weight Bearing Amount (enter % He reports it is his right leg or #) (%) that kyle. M3 PT-IP Subjective Start: 05/23/18 11:48 Freq: NEEDED Status: Discharge Protocol: Document 05/24/18 11:17 [facility] (Rec: 05/24/18 11:33 [facility] [id number]) Subjective Physical Therapy Visit Type Type Treatment Note Visit Start Time 10:44 Visit Stop Time 11:14 Total Visit Minutes 30 Number of BILL SORTER Visits 1 Physical Therapy Visit Comments Patient Comments Pt found sitting up in bed and agreeable to PT. Pt provided extensive explanation about his inconsistant balance and occasional R knee weakness. Therapy Pain Assessment Pain When Pain Assessed During Mobility Pain Present Pain Present Denied Pain M4 PT-IP Mobility and Gait Start: 05/23/18 11:48 Freq: NEEDED Status: Discharge Protocol: Document 05/24/18 11:17 [facility] (Rec: 05/24/18 11:33 [facility] [id number]) PT-Bed Mobility Assessment Rolling Type of Rolling Roll to Left Supine to Sit Supine to Sit Standby Assistance Scooting Scooting to Edge of Bed Standby Assistance PT-Transfer Assessment Sit to and From Stand Sit to and from Stand Contact Guard Assistance 1 Person Assistance Use of Upper Extremities Equipment Transfer Assistive Device Gait Belt Front Wheeled Walker Orthotic/Prosthetic Devices or Brace: No Transfers Transfer Destination Bed Chair Toilet Transfer Ability Level of Assist Contact Guard Assistance Comments Mobility Comments Pt ambulated into bathroom with FWW then placed FWW sideways in doorway and attempted to walk around it to get to toilet, educated pt on safe use of FWW as he often places it off to side and creates obstacle that he has to step around. Gait Assessment Gait Gait Assistance Required: Minimum Assistance Distance (Feet) 120 Able to Maintain Weight Bearing Status Yes During Gait Assistive Devices Assistive Device Front Wheeled Walker Orthotic/Prosthetic Devices or Brace: No Gait Deviations General Gait Pattern Decreased Stride Length Decreased Feet Clearance Step-to Gait Factors Limiting Gait Function Factors Limiting Gait Function Decreased Activity Tolerance Decreased Strength Difficulty Following Directions Poor Safety Awareness Comments Gait Comments Pt presents with step to gait pattern and often shufling gait, is very unsafe with turning as he does not use FWW correctly and places it to side and too far out in front of him so it offers very little support, when cued for correct use pt offers illogical reasoning for useing FWW this way. PT-Balance Assessment Comments Other Balance Tests/Deviations/Treatment TUG balance assessment : completed with overall time of 35 seconds which indicates high risk of falls. Functional Assessments Functional Tests Timed Up and Go 35 Other Functional Tests Performed Pt is high fall risk M5 PT-IP Objective Assessments Start: 05/23/18 11:48 Freq: NEEDED Status: Discharge Protocol: Document 05/23/18 11:51 [facility] (Rec: 05/23/18 12:24 [facility] [id number]) Orientation Orientation/Cognition Level of Alertness Alert Orientation Name Age Safety Awareness Decreased Safety Awareness Memory Description Short Term Impaired Comments Able to tell me where he is and what day it is but did repeat questions to me throughout the treatment. Gross Range of Motion Upper Extremity ROM Assessment Within Functional Limits Impairments Left bicipital pain and shoulder flexion to 130 degress Lower Extremity ROM Assessment Within Functional Limits Strength Upper Extremity Strength Assessment Within Functional Limits Lower Extremity Strength Assessment Within Functional Limits Comments Strength Comments Shoulder flexion right 4/5, hip flexion right 4/5. All other MMT grossly 5/5 but low endurance. Coordination Assessment Gross Coordination Gross Coordination WNL Sensation Assessment Sensation Gross Sensation WNL Light Touch Intact Proprioception (Position) Intact Muscle Tone Muscle Tone WNL Yes M6 PT-IP Treatment Start: 05/23/18 11:48 Freq: NEEDED Status: Discharge Protocol: Document 05/24/18 11:33 [facility] (Rec: 05/24/18 11:33 [id number]) Physical Therapy Treatment Exercises Exercises Ankle Pumps Gluteal Sets Quad Sets Seated Knee Flexion/Extension Education Education Provided Safety M7 PT-IP Assessment and Plan Start: 05/23/18 11:48 Freq: NEEDED Status: Discharge Protocol: Document 05/24/18 11:17 [facility] (Rec: 05/24/18 11:33 [facility] [id number]) PT Summary Assessment and Plan Potential Rehabilitation Potential Fair Status of Condition at Evaluation Evolving Summary Assessment Summary Pt unsteady with gait and demonstrates poor safety awarenss and unsafe use of AD, especially with turns and in tight spaces. Recommendations To Nursing Amount of Assist Needed 1 Person Assist Discharge Recommendations PT Discharge Recommendations SNF Rehab Other Discharge Recommendations Pt would benefit from safety and balance training to reduce continued risk of falls.
== END 2018-05-25 13:23 ==
LOC: ED 11:37 → AC 12:05
PROVIDERS: Family Medicine; Admitting Provider Family Medicine; Emergency Provider Emergency Medicine; PCP Family Medicine; Visit Provider Family Medicine
DX: R53.1 Weakness (principal); R26.0 Ataxic gait; R47.81 Slurred speech; Z91.81 History of falling; M54.9 Dorsalgia, unspecified; I10 Essential (primary) hypertension; E05.00 Thyrotoxicosis with diffuse goiter without thyrotoxic crisis or storm; N40.0 Benign prostatic hyperplasia without lower urinary tract symptoms
CPT/HCPCS: 36415; 36591; 36592; 70450; 71045; 72100; 76536; 80053; 81001; 81003; 82390; 82607; 84436; 84443; 84481; 84484; 85025; 85610; 85651; 85730; 86140; 93005; 93010; 97116; 97127; 97161; 97166; 97530; 97535; 99217; 99220; 99225; 99283; 99284; G0378; J1650

== ENCOUNTER → 2018-06-25 12:10 | Outpatient (CLI) | payer OTHER, SELFPAY ==
[2018-06-25 14:15] LABS: TSH w/ Reflex to FT4 0.03 uIU/mL (0.47-4.68)
[2018-06-25 14:51] LABS: Free T4, Direct Thyroxine 1.66 ng/dL (0.78-2.19)
== END ==
PROVIDERS: PCP Family Medicine; Visit Provider Family Medicine
DX: E05.90 Thyrotoxicosis, unspecified without thyrotoxic crisis or storm (principal)
CPT/HCPCS: 36415; 84439; 84443

== ENCOUNTER → 2018-07-10 07:31 | Outpatient (CLI) | payer OTHER, SELFPAY ==
--- NOTE | 2018-07-10 07:35 | DI.MRI.S_ITS ---
PROCEDURE: MR THORACIC SPINE WO CON INDICATIONS: Disease of spinal cord, unspecified TECHNIQUE: Noncontrast sagittal T1 spine echo and T2 fast spin echo, sagittal STIR, axial T1 and T2 fast spin echo through the thoracic spine. COMPARISON: None. FINDINGS: Image quality: Excellent. Alignment and Curvature: There is normal bony alignment. Bone Marrow: Marrow is of normal overall signal. No acute vertebral body compression fractures. Spinal Cord: Visualized spinal cord is normal in size and signal. Paraspinous Soft Tissues: No paravertebral masses. Note made of a 2.6 x 2.8 cm right parahilar mass and mediastinal adenopathy concerning for neoplastic process. Miscellaneous: Moderate multilevel degenerative changes are noted. Mild multilevel facet arthropathy. No significant central canal stenosis. No significant neural foraminal narrowing. IMPRESSION: 1. Spinal cord follows a normal course has normal contour. 2. No abnormal spinal cord signal. 3. Multilevel degenerative disc disease and facet arthropathy 4. No significant central canal narrowing. 5. No significant neuroforaminal narrowing. 6. No neural impingement. 7. 2.6 x 2.8 cm right hilar mass and enlarged mediastinal lymph nodes concerning for malignancy. Recommend dedicated CT scan of the chest for further evaluation. Dictated by: Gwen Duval MD, PhD on 07/10/2018 at 13:07 Approved by: Gwen Duval MD, PhD on 07/10/2018 at 13:15
--- NOTE | 2018-07-10 07:35 | DI.MRI.S_ITS ---
PROCEDURE: MR CERVICAL SPINE WO CON INDICATIONS: Disease of spinal cord, unspecified TECHNIQUE: Noncontrast sagittal T1 spin echo and T2 fast spin echo, sagittal STIR, foraminal oblique sagittal T2 fast spin echo, and axial gradient echo or T2 fast spin echo through the cervical spine. COMPARISON: [facility], , C-SPINE WITHOUT CONTRAST, 07/15/2015, 15:17. FINDINGS: Image quality: Excellent. Alignment and Curvature: There is trace anterolisthesis of C2 on C3, C3 on C4, C4 on C5, trace retrolisthesis of C5 on C6, C7 on T1, trace retrolisthesis C5 on C6, T1 and T2. Bone Marrow: Marrow demonstrates normal overall signal. There is mild to moderate reactive endplate change at C6-7, C7-T1, T2-3. Spinal Cord: Visualized spinal cord has normal size and signal. No cerebellar tonsillar herniation. Paraspinous Soft Tissues: No paravertebral masses. Prevertebral soft tissues are normal in thickness. Discs: Severe desiccation is present at C4-5, C5-6, C6-7, C7-T1 and moderate throughout the remainder of the cervical spine. C2-C3: Mild disc bulge without spinal stenosis. Mild to moderate left foraminal narrowing with uncovertebral hypertrophy, unchanged C3-C4: Mild disc bulge with moderate spinal stenosis. Mild to moderate right and mild left foraminal narrowing with progression on the right compared to prior exam. Uncovertebral hypertrophy is present. C4-C5: Mild disc bulge with moderate spinal stenosis. There is moderate to severe bilateral foraminal narrowing, minimally progressive compared to prior exam. Uncovertebral hypertrophy is present. C5-C6: Mild disc bulge with moderate spinal stenosis. There is mild to moderate left and mild right foraminal narrowing slightly progressive on the left compared to prior exam. Uncovertebral hypertrophy is present. C6-C7: Mild disc bulge with superimposed posterior left paracentral protrusion, new compared to prior exam. There is compromise of the left lateral recess as well as moderate spinal stenosis. Moderate to severe right and moderate left foraminal narrowing, minimally progressive on the right compared to prior exam. Uncovertebral hypertrophy is present. C7-T1: No disc bulge or spinal stenosis. Minimal left foraminal narrowing. IMPRESSION: 1. Multiple degenerative changes demonstrating areas is minimal interval progression as above. 2. New posterior paracentral protrusion at C6-7 with compromise of the left lateral recess. 3. Multilevel mild to moderate spinal stenosis most notable from C3-4 through C6-7 secondary to disc bulges with contributing effect of anterior/retrolisthesis. 4. Multilevel foraminal narrowing, overall moderate with moderate to severe areas identified at C4-5 and C6-7 secondary to uncovertebral arthropathy. Dictated by: Rashmi Roche M.D. on 07/10/2018 at 11:34 Approved by: Rashmi Roche M.D. on 07/10/2018 at 11:52
== END ==
PROVIDERS: PCP Family Medicine; Visit Provider Nurse Practitioner Family
DX: G95.9 Disease of spinal cord, unspecified (principal); M47.812 Spondylosis without myelopathy or radiculopathy, cervical region; M50.223 Other cervical disc displacement at C6-C7 level; M48.02 Spinal stenosis, cervical region; M51.34 Other intervertebral disc degeneration, thoracic region; M47.814 Spondylosis without myelopathy or radiculopathy, thoracic region; R91.8 Other nonspecific abnormal finding of lung field; R59.0 Localized enlarged lymph nodes
CPT/HCPCS: 72141; 72146

== ENCOUNTER → 2018-07-29 08:25 | Outpatient (CLI) | payer OTHER, SELFPAY ==
--- NOTE | 2018-07-29 | DI.CT.S_ITS ---
PROCEDURE: CT CHEST W CON INDICATIONS: HILAR MASS TECHNIQUE: After the administration of intravenous contrast, 5 mm thick sections acquired from the pulmonary apices to the posterior costophrenic angles. 7 mm thick coronal and sagittal MIP reformats were acquired. For radiation dose reduction, the following was used: automated exposure control, adjustment of mA and/or kV according to patient size. COMPARISON: [facility], MR, MR THORACIC SPINE WO CON, 07/10/2018, 8:15. FINDINGS: Image quality: Excellent. Lungs and pleura: No acute air space opacities. No pleural effusions or pneumothorax. Central and peripheral airways are patent and normal in caliber. Mediastinum: Enlarged right hilar lymph node measures 1.8 x 2.4 cm, likely responsible for the right perihilar mass seen on the thoracic spine MRI. There is a mildly enlarged precarinal lymph node measuring 1.1 x 2.0 cm. Heart size is normal. No pericardial effusion. Coronary artery calcification consistent with atherosclerosis. Thoracic aorta and central pulmonary arteries are normal in size. Esophagus is normal in caliber. No hiatal hernia. Bones and chest wall: No suspicious bony lesions. No vertebral body compression fractures. Degenerative changes are noted in lumbar spine. No axillary or supraclavicular adenopathy by size criteria. Thyroid gland is normal. Abdomen: There are a couple of low density nodules in the left hepatic lobe. A 5 mm low density nodule in the right hepatic lobe. A 1.5 cm cystic mass is noted in the pancreatic head. Upper abdominal bowel loops are normal in caliber. IMPRESSION: 1. Enlarged right hilar and mediastinal lymph nodes are present. The 1.8 x 2.4 cm right hilar lymph node is likely responsible for the parahilar mass described on the T-spine MRI. This finding is nonspecific and may be secondary to infectious, inflammatory or neoplastic etiology. Recommend clinical correlation and follow up. 2. Low density nodules in liver are probably hepatic cysts or hemangiomas. Ultrasound is suggested to confirm cystic nature of the nodules. 3. A 1.5 cm cystic mass in the head of the pancreas. Differential diagnosis include benign cyst versus cystic neoplasm such as intraductal papillary mucinous neoplasm (IPMN). Followup pancreatic protocol CT or MRI is suggested. 4. Coronary atherosclerosis. Dictated by: Andre Lakhani M.D. on 07/29/2018 at 13:32 Approved by: Andre Lakhnai M.D. on 07/29/2018 at 13:45
[2018-07-29 09:23] LABS: Estimated Glomerular Filt Rate > 60.0 mL/min (>60)
== END ==
PROVIDERS: PCP Family Medicine; Visit Provider Nurse Practitioner Family
DX: R91.8 Other nonspecific abnormal finding of lung field (principal); R59.0 Localized enlarged lymph nodes; K76.9 Liver disease, unspecified; K86.2 Cyst of pancreas; I25.10 Atherosclerotic heart disease of native coronary artery without angina pectoris
CPT/HCPCS: 36415; 71260; 82565; Q9967

== ENCOUNTER → 2018-08-07 11:44 | Outpatient (CLI) | payer OTHER, SELFPAY ==
[2018-08-07 14:16] LABS: Thyroid Stimulating Hormone 1.84 uIU/mL (0.47-4.68)
== END ==
PROVIDERS: PCP Family Medicine; Visit Provider Family Medicine
DX: R79.89 Other specified abnormal findings of blood chemistry (principal)
CPT/HCPCS: 36415; 84443

== ENCOUNTER → 2018-12-07 09:45 | Outpatient (CLI) | payer OTHER, SELFPAY ==
[2018-12-07 11:53] LABS: Free T4, Direct Thyroxine 1.25 ng/dL (0.78-2.19)
[2018-12-07 12:07] LABS: Thyroid Stimulating Hormone 3.31 uIU/mL (0.47-4.68)
== END ==
PROVIDERS: PCP Family Medicine; Visit Provider Family Medicine
DX: R79.89 Other specified abnormal findings of blood chemistry (principal)
CPT/HCPCS: 36415; 84439; 84443

== ENCOUNTER → 2019-01-01 15:47 | Outpatient (CLI) | payer OTHER, SELFPAY ==
--- NOTE | 2019-01-01 15:49 | DI.ECHO.S_ITS ---
[facility]---------+ [facility] +---------+ : : [address] : : : : [id number] : : : : Phone: [phone]+ Echocardiogram Report + + :Name: DOUG SNELL Study Date: 01/01/2019 Height: 71 in : :[facility] Exam Location: IS Weight: 160 lb : : Gender: Male BSA: 1.9 m2 : :: 1940 Age: 78 yrs BP: 118/50 mmHg: :Reason For Study: AFIB : : Performed By: Steve Ridley : :Referring: ALESSANDRA AGRAWAL : + + Interpretation Summary Normal sinus rhythm. Normal LV size, wall thickness, wall motion and LV systolic function. EF is 60-65%. Normal chamber sizes. No significant valvular abnormalities. No prior study available for comparison. Procedure: A two-dimensional transthoracic echocardiogram with color flow and Doppler was performed. The study quality was technically adequate. There is no prior echocardiogram noted for this patient. The patient was supine at the beginning of the test, but was able to get on his left side half way through the exam. The patient was in normal sinus rhythm during the exam. Left Ventricle: The left ventricle is normal in size. There is normal left ventricular wall thickness. The ejection fraction is estimated to be 60-65%. There are no focal wall motion abnormalities. Right Ventricle: The right ventricle is normal in size and function. Atria: Both atria are normal in size. The interatrial septum is intact with no evidence for an atrial septal defect. Mitral Valve: The mitral valve is normal in structure and function. There is mild mitral annular calcification. There is no mitral regurgitation noted. Aortic Valve: The aortic valve is trileaflet. The aortic valve opens well. No aortic regurgitation is present. Tricuspid Valve: The tricuspid valve is normal in structure and function. There is trace tricuspid regurgitation. The right ventricular systolic pressure is estimated to be at least 22 mmHg based on an estimated right atrial pressure of 3 mm Hg. Pulmonic Valve: The pulmonic valve is normal in structure and function. There is trace pulmonic regurgitation. Great Vessels: The aortic root is normal size. The ascending aorta could not be visualized. The pulmonary artery is normal size. The IVC is of normal diameter and collapses greater than 50% with a sniff. This suggests a low right atrial pressure of 3 mm Hg. Pericardium/ Pleura There is no pericardial effusion. There is no pleural effusion. MMode/2D Measurements & Calculations LVIDd: 4.6 cm LVOT diam: 2.1 cm LVIDs: 2.9 cm Ao root diam: 4.0 cm FS: 36.8 % Aortic Jxn: 3.1 cm EPSS: 0.42 cm IVSd: 0.83 cm LVPWd: 0.81 cm LV zaidi. diameter/BSA (cm/m^2): 2.4 LV sys. diameter/BSA (cm/m^2): 1.5 LA dimension: 3.0 cm RA long axis: 4.4 cm LA A2 area: 17.4 cm2 RA area: 15.3 cm2 LA A4 area: 13.0 cm2 RA vol: 45.4 ml LA length (vol): 3.8 cm RA : 23.7 ml/m2 LA vol: 51.2 ml IVC diam: 1.7 cm LA vol index: 26.7 ml/m2 Doppler Measurements & Calculations Ao V2 max: 111.1 cm/sec LVOT Max Yonny: 110.0 cm/sec Ao V2 mean: 77.4 cm/sec LV V1 max P.8 mmHg Ao max P.9 mmHg LV V1 VTI: 22.2 cm Ao mean P.7 mmHg JOSE(I,D): 3.2 cm2 Ao V2 VTI: 24.0 cm JOSE(V,D): 3.4 cm2 sev ratio: 0.92 JOSE indexed to BSA (cm^2/m^2): 1.7 MV E max yonny: 60.4 cm/sec TR max yonny: 218.8 cm/sec MV A max yonny: 73.0 cm/sec TR max P.1 mmHg MV E/A: 0.83 PA V2 max: 74.3 cm/sec Med Peak E' Yonny: 8.4 cm/sec PA V2 mean: 53.8 cm/sec E/E' med: 7.2 PA mean P.3 mmHg Lat Peak E' Yonny: 5.9 cm/sec PA pr(Accel): 31.6 mmHg E/E' lat: 10.2 PA Accel Time: 0.10 sec E/e' average: 8.7 MV dec time: 0.26 sec SV(LVOT): 76.6 ml Electronically signed by: Jojo Courtney M.D. on Reading Physician:01/02/2019 02:12 AM
== END ==
PROVIDERS: PCP Family Medicine; Visit Provider Family Medicine
DX: I48.91 Unspecified atrial fibrillation (principal)
CPT/HCPCS: 93306

== ENCOUNTER → 2019-03-04 15:36 | Outpatient (CLI) | payer OTHER, SELFPAY ==
--- NOTE | 2019-03-04 | DI.MRI.S_ITS ---
PROCEDURE: MR HEAD/BRAIN WO CON INDICATIONS: Parkinson's disease TECHNIQUE: Non-contrast axial T1 spin echo, axial T2 fast spin echo, sagittal and axial FLAIR, coronal T2 fast spin echo, axial gradient echo, axial diffusion and ADC through the brain. COMPARISON: [facility], MR, BRAIN WITHOUT CONTRAST, 05/08/2017, 15:04. FINDINGS: Image quality: Excellent. CSF spaces: Ventricles appear symmetric in size and shape. Basal cisterns are patent. No extra-axial fluid collections. Brain: No intracranial bleeds or mass effects. There is cerebral volume loss for age. There are periventricular and deep white matter chronic small vessel ischemic changes. Brainstem appears normal. Diffusion-weighted images show no acute ischemic insults. No chronic ischemic insults. Normal intravascular flow voids are present. Skull and face: Calvarial bone marrow is normal in signal. Orbits are normal. Sinuses: Sinuses and mastoids are clear. IMPRESSION: 1. Volume loss and small vessel ischemic disease. 2. No acute process. No recent infarct. Dictated by: Dolly Flynn M.D. on 03/04/2019 at 16:19 Approved by: Dolly Flynn M.D. on 03/04/2019 at 16:20
== END ==
PROVIDERS: PCP Family Medicine; Visit Provider Psychiatry & Neurology Neurology
DX: G20 Parkinson's disease (principal); I67.82 Cerebral ischemia
CPT/HCPCS: 70551

== ENCOUNTER → 2019-03-08 10:15 | Outpatient (CLI) | payer OTHER, SELFPAY ==
[2019-03-13 15:46] LABS: Alpha-Tocopherol 22.5 mg/L (5.7-19.9); Gamma-Tocopherol < 1.0 mg/L (< 4.4)
== END ==
PROVIDERS: Family Provider Family Medicine; PCP Family Medicine; Visit Provider Psychiatry & Neurology Neurology
DX: G20 Parkinson's disease (principal)
CPT/HCPCS: 36415; 84446; 86790

== ENCOUNTER → 2019-05-24 11:10 | Outpatient (CLI) | payer OTHER, SELFPAY ==
[2019-05-24 12:20] LABS: Cholesterol 222 mg/dL (140-199); HDL Cholesterol 49 mg/dL (40-60); LDL Cholesterol Calculated 153 mg/dL (<100); Triglycerides 101 mg/dL (35-150)
[2019-05-24 12:23] LABS: Add Manual Diff / Slide Review NO; Basophils Absolute Auto 0 /uL (0-100); Basophils Percent Auto 0.6 % (0-2); Eosinophils Absolute Auto 100 /uL (0-450); Eosinophils Percent Auto 1.8 % (2-4); Hematocrit 40.2 % (41-53); Hemoglobin 13.6 g/dL (13.5-17.5); Lymphocytes Absolute Auto 700 /uL (1100-4500); Lymphocytes Percent Auto 10.5 % (25-40); Mean Corpuscular HGB Conc 33.7 % (30-36); Mean Corpuscular Hemoglobin 30.6 PG (26-34); Mean Corpuscular Volume 90.8 fL (80-100); Monocytes Absolute Auto 500 /uL (0-900); Monocytes Percent Auto 8.2 % (3-14); Neutrophils Absolute Auto 5300 /uL (1500-7000); Neutrophils Percent Auto 78.9 % (50-75); Platelet Count 305 X10^3/uL (150-400); Red Blood Cell Count 4.43 X10^6/uL (4.5-5.9); Red Cell Distribution Width 15.1 % (11.6-14.8); White Blood Cell Count 6.7 X10^3/uL (4.5-11.0)
[2019-05-24 13:04] LABS: TSH w/ Reflex to FT4 5.71 uIU/mL (0.47-4.68)
[2019-05-24 13:40] LABS: Free T4, Direct Thyroxine 0.93 ng/dL (0.78-2.19)
== END ==
PROVIDERS: PCP Family Medicine; Visit Provider Family Medicine
DX: F03.90 Unspecified dementia, unspecified severity, without behavioral disturbance, psychotic disturbance, mood disturbance, and anxiety (principal); I10 Essential (primary) hypertension; I48.91 Unspecified atrial fibrillation
CPT/HCPCS: 36415; 80061; 84439; 84443; 85025

== ENCOUNTER → 2019-07-12 11:15 | Outpatient (CLI) | payer OTHER, SELFPAY ==
[2019-07-12 13:27] LABS: Thyroid Stimulating Hormone 2.99 uIU/mL (0.47-4.68)
== END ==
PROVIDERS: PCP Family Medicine; Visit Provider Family Medicine
DX: R79.89 Other specified abnormal findings of blood chemistry (principal)
CPT/HCPCS: 36415; 84443

== ENCOUNTER → 2019-10-14 15:13 | Outpatient (CLI) | payer OTHER, SELFPAY ==
--- NOTE | 2019-10-14 15:16 | DI.RAD.S_ITS ---
PROCEDURE: XR SHOULDER LT MIN 2V INDICATIONS: left shoulder pain, impingement TECHNIQUE: 3 views of the shoulder were acquired. COMPARISON: None. FINDINGS: Bones: No fractures or dislocations, but there is severe arthritic change with [id number] articulation at the glenohumeral joint. Moderately severe such degeneration is seen at the acromioclavicular joint.. No suspicious bony lesions. Visualized ribs appear intact. Soft tissues: No suspicious soft tissue calcifications. IMPRESSION: Degenerative change at the left shoulder is quite severe, most pronounced at the glenohumeral joint, but no recent trauma is found. No effusion or loose body is seen. Dictated by: Rony Baca M.D. on 10/14/2019 at 16:21 Approved by: Rony Baca M.D. on 10/14/2019 at 16:22
== END ==
PROVIDERS: PCP Family Medicine; Referring Provider Family Medicine; Visit Provider Family Medicine
DX: M25.511 Pain in right shoulder (principal); M19.012 Primary osteoarthritis, left shoulder; M75.42 Impingement syndrome of left shoulder
CPT/HCPCS: 73030

== ENCOUNTER → 2020-08-27 14:24 | Outpatient (CLI) | payer MEDICARE, SELFPAY ==
[2020-08-27] MEDS: COVID-19 VACC #1, MRNA(MOD) 100 MCG/0.5 ML VIAL IM (14:45)
== END ==
PROVIDERS: PCP Family Medicine; Visit Provider Internal Medicine
DX: Z23 Encounter for immunization (principal)
CPT/HCPCS: 0011A; 91301

== ENCOUNTER → 2020-09-24 14:27 | Outpatient (CLI) | payer MEDICARE, SELFPAY ==
[2020-09-24] MEDS: COVID-19 VACC #2, MRNA(MOD) 100 MCG/0.5 ML VIAL IM (14:31)
== END ==
PROVIDERS: PCP Family Medicine; Visit Provider Internal Medicine
DX: Z23 Encounter for immunization (principal)
CPT/HCPCS: 0012A; 91301

== ENCOUNTER → 2020-11-06 10:46 | Outpatient (CLI) | payer OTHER, SELFPAY ==
[2020-11-06 12:07] LABS: Add Manual Diff / Slide Review NO; Basophils Absolute Auto 100 /uL (0-100); Basophils Percent Auto 0.9 % (0-2); Eosinophils Absolute Auto 100 /uL (0-450); Eosinophils Percent Auto 1.5 % (2-4); Hematocrit 42.4 % (41-53); Hemoglobin 14.1 g/dL (13.5-17.5); Lymphocytes Absolute Auto 800 /uL (1100-4500); Lymphocytes Percent Auto 12.6 % (25-40); Mean Corpuscular HGB Conc 33.2 % (30-36); Mean Corpuscular Hemoglobin 30.2 PG (26-34); Monocytes Absolute Auto 600 /uL (0-900); Monocytes Percent Auto 9.8 % (3-14); Neutrophils Absolute Auto 4500 /uL (1500-7000); Neutrophils Percent Auto 75.2 % (50-75); Platelet Count 254 X10^3/uL (150-400); Red Blood Cell Count 4.66 X10^6/uL (4.5-5.9); Red Cell Distribution Width 14.1 % (11.6-14.8)
[2020-11-06 12:26] LABS: Alanine Aminotransferase 17 IU/L (<50); Albumin Globulin Ratio 1.5 (1.0-2.8); Alkaline Phosphatase 66 U/L (38-126); Aspartate Aminotransferase 28 IU/L (17-59); BUN Creatinine Ratio 21.3 (6-22); Bilirubin Total 0.4 mg/dL (0.2-1.3); Blood Urea Nitrogen 19 mg/dL (9-20); Calcium 9.6 mg/dL (8.4-10.2); Carbon Dioxide 27 mmol/L (22-32); Chloride 104 mmol/L (98-107); Estimated Glomerular Filt Rate > 60.0 mL/min (>60); Globulin 2.7 g/dL (1.7-4.1); Glucose 107 mg/dL (80-110); HEMOLYSIS < 15 (0-50); Potassium 4.1 mmol/L (3.4-5.1); Sodium 137 mmol/L (137-145); Total Protein 6.7 g/dL (6.3-8.2)
[2020-11-06 12:53] LABS: TSH w/ Reflex to FT4 2.27 uIU/mL (0.47-4.68)
== END ==
PROVIDERS: PCP Family Medicine; Referring Provider Family Medicine; Visit Provider Family Medicine
DX: E78.5 Hyperlipidemia, unspecified (principal); I10 Essential (primary) hypertension; R79.89 Other specified abnormal findings of blood chemistry
CPT/HCPCS: 36415; 80053; 84443; 85025

== ENCOUNTER → 2020-12-04 10:48 | Outpatient (CLI) | payer OTHER, SELFPAY ==
[2020-12-04 11:39] LABS: Cholesterol 206 mg/dL (140-199); HDL Cholesterol 59 mg/dL (40-60); LDL Cholesterol Calculated 131 mg/dL (<100); Triglycerides 81 mg/dL (35-150)
== END ==
PROVIDERS: PCP Family Medicine; Referring Provider Family Medicine; Visit Provider Family Medicine
DX: E78.5 Hyperlipidemia, unspecified (principal); I10 Essential (primary) hypertension; R79.89 Other specified abnormal findings of blood chemistry
CPT/HCPCS: 36415; 80061

== ENCOUNTER → 2021-05-10 11:24 | Outpatient (CLI) | payer OTHER, SELFPAY ==
--- NOTE | 2021-05-10 11:25 | DI.RAD.S_ITS ---
PROCEDURE: XR LUMBAR SPINE 2-3V INDICATIONS: fell, hit low back on cabinet TECHNIQUE: 3 views of the lumbar spine were acquired. COMPARISON: [facility], CR, XR LUMBAR SPINE 2-3V, 05/22/2018, 9:42. FINDINGS: Bones: 5 maz-shl-[id number] vertebrae are present. There is mild grade 1 retrolisthesis of L2 on L3. Mild grade 1 anterolisthesis of L4 on L5. Multilevel disc space narrowing and endplate osteophyte formation throughout the mid and lower lumbar spine. Facet hypertrophy throughout the mid and lower lumbar spine. Mild wedging of L4, new since the prior examination. No suspicious bony lesions. Soft tissues: Overlying bowel gas pattern is normal. No suspicious soft tissue calcifications. IMPRESSION: Mild wedging of the L4 vertebral body, of uncertain acuity. This could be further assessed with MRI, if clinically indicated. Dictated by: Dolly Flynn M.D. on 05/10/2021 at 12:00 Approved by: Dolly Flynn M.D. on 05/10/2021 at 12:03
== END ==
PROVIDERS: PCP Family Medicine; Referring Provider Family Medicine; Visit Provider Family Medicine
DX: M54.50 Low back pain, unspecified (principal); M43.16 Spondylolisthesis, lumbar region
CPT/HCPCS: 72100

== ENCOUNTER → 2021-06-17 14:09 | Outpatient (CLI) | payer MEDICARE, SELFPAY ==
[2021-06-17] MEDS: COVID-19 VACC #3, MRNA(MOD) 50 MCG/0.25 ML VIAL IM (14:22)
== END ==
PROVIDERS: PCP Family Medicine; Visit Provider Internal Medicine
DX: Z23 Encounter for immunization (principal)
CPT/HCPCS: 0013A; 91301

== ENCOUNTER → 2021-06-22 14:14 | Outpatient (CLI) | payer OTHER, SELFPAY | PROVIDERS: PCP Family Medicine; Visit Provider Nurse Practitioner Family | DX: N34.3 Urethral syndrome, unspecified (principal) | CPT/HCPCS: 87077; 87086; 87186 ==

== ENCOUNTER → 2021-07-26 13:33 | Outpatient (CLI) | payer OTHER, SELFPAY ==
[2021-07-26 14:40] LABS: Appearance Urine UA SL CLOUDY; Bilirubin Urine UA NEGATIVE (NEGATIVE); Color Urine UA YELLOW; Glucose Urine UA NEGATIVE (Negative); Ketones Urine UA NEGATIVE (NEGATIVE); Leukocyte Esterase Urine UA NEGATIVE (NEGATIVE); Nitrite Urine UA NEGATIVE (Negative); Occult Blood Urine UA NEGATIVE (Negative); Protein Urine UA NEGATIVE (Negative); Urobilinogen Urine UA 0.2 E.U./dL (0.2); pH Urine UA 5.5 (4.5-8.0)
== END ==
PROVIDERS: PCP Family Medicine; Referring Provider Family Medicine; Visit Provider Family Medicine
DX: R30.0 Dysuria (principal)
CPT/HCPCS: 81003

== ENCOUNTER → 2022-01-19 13:07 | Outpatient (CLI) | payer OTHER, SELFPAY ==
[2022-01-19 14:29] LABS: Thyroid Stimulating Hormone 1.53 uIU/mL (0.47-4.68)
== END ==
PROVIDERS: PCP Family Medicine; Referring Provider Family Medicine; Visit Provider Family Medicine
DX: E05.90 Thyrotoxicosis, unspecified without thyrotoxic crisis or storm (principal)
CPT/HCPCS: 36415; 84443

== ENCOUNTER → 2022-05-22 13:06 | Outpatient (CLI) | payer OTHER, SELFPAY ==
--- NOTE | 2022-05-22 13:08 | DI.RAD.S_ITS ---
PROCEDURE: FL BARIUM SWALLOW W SPEECH INDICATIONS: choking on food and drinks COMPARISON: None. TECHNIQUE: Examination was conducted in conjunction with speech pathology per standard protocol. In the lateral projection, filming was performed of the patient swallowing. AP projection filming may also be performed with patient swallowing. COMPARISON: FINDINGS: Function: The oral preparatory phase appears normal, with proper containment. The subsequent oral propulsive phase, pharyngeal phase, and esophageal phase of swallowing also appear normal with all proffered substances. Moderate amount of residue is noted collecting at the level of vallecula . No significant improvement using oblique chin-tuck technique was noted. No laryngotracheal penetration or aspiration. Morphology: No cricopharyngeal bar is identified. No cervical esophageal webs. No Zenker's diverticulum. No strictures. IMPRESSION: Significant residue after each swallowing which requires multiple Re swallowing to clear. No gross aspiration or penetration is seen. Please correlate with speech pathology notes for additional details. Dictated by: Zachariah Quiñonez M.D. on 05/22/2022 at 14:43 Approved by: Zachariah Quiñonez M.D. on 05/22/2022 at 14:49
--- NOTE | 2022-05-22 14:30 | ST.SWALLOW ---
Visit Care Team Role Provider Type Jose Etienne MD Attending Provider Physician Primary Care Provider Referring Provider Specialty: Family Practice Address: [address] [place] [address], [id number] Email: [email or web address] Modified Barium Swallow Study [employer] Modified Barium Swallow Study Start: 05/23/22 09:11 Freq: Status: Active Protocol: Document 05/22/22 14:30 ZS (Rec: 05/23/22 09:55 ZS [id number]) Modified Barium Swallow Study Total Time Visit Start Time 13:30 Visit Stop Time 14:00 Total Visit Minutes 30 Setting Setting Outpatient Care Patient Information Identification Type Name Patient History Kenny is an 81-year-old male with a diagnosis of Parkinsons (about 3 years ago, though reported they were chasing the diagnosis for years) and dementia (04/18/2017 ), and a history of atrial fibrillation, hypertention, appendectomy, tonsilectomy and adenoidectomy, and former smoking. reported Kenny has a caregiver 5-6 days a week and stated he has significantly impaired short- term memory. She added Kenny has been clearing his throat more often and had a choking episode recently that prompted the referral for a modified barium swallow study. Subjective Observations Kenny arrived on time accompanied by his , who provided history. Kenny required a 2-person assist to transfer from his wheelchair to the assessment chair. Case history was obtained from . Kenny's short term memory lasted about 3-5 minutes, at which point he would re- introduce himself to those present and repeat previously asked and answered questions. Provided education on process and procedure and Kenny expressed understanding and agreed to participate. Patient Positioning Position View Lateral Imaging Lateral View Textures Administered Trials Presented Thin Liquid via Spoon,Thin Liquid via Cup,[place] Liquid via Spoon,Honey Liquid via Spoon,Pudding Thick Liquid via Spoon,Regular Textures Oral Phase Source: MBSIMP (TM) (C) Bolus Specific Scoring Grid Lip Closure No Impairment (WNL) Tongue Control During Bolus Hold Moderate Impairment Bolus Prep/Mastication Mild Impairment Bolus Transport/Lingual Motion Mild Impairment Oral Residue WFL Residue Clearing No Impairment (WNL) Nasal Regurgitation No Additional Oral Phase Observations No anterior loss of bolus observed. Pt exhibited slowed mastication with mashing more than rotary chew and reported pt often chews food for a long time. Posterior loss of more than half the bolus during mastication, with bolus resting in valleculae and pyriforms. Pt exhibited posterior loss of bolus on several PO trials and across textures. Minimal oral residue observed following swallow. Pharyngeal Phase Source: MBSIMP (TM) (C) Bolus Specific Scoring Grid Delayed Initiation of Pharyngeal Swallow Yes: head of bolus in pyriforms Soft Palate Elevation No Impairment (WNL) Tongue Base Strength/Range of Motion Mild Impairment Residue Along the Tongue Base No Laryngeal Elevation Moderate Impairment Anterior Hyoid Movement Mild Impairment Epiglottic Range of Motion Moderate Impairment Vallecular Residue Yes Clearance of Vallecular Residue Moderate Impairment Laryngeal Vestibular Closure Moderate Impairment Pharyngeal Stripping Wave Mild Impairment Posterior Pharyngeal Wall Residue No Upper Esophageal Sphincter Opening Mild Impairment Residue in the Pyriform Sinuses Yes Clearance of Residue in the Pyriform Moderate Impairment Sinuses Esophageal Clearance Upright Position Moderate Impairment Pharyngoesophageal Backflow Observed No Additional Pharyngeal Phase Observations Posterior loss of bolus resulted in high levels of residue in valleculae and pyriforms prior to swallow initiation, which puts pt at high risk of aspiration. When swallow was initiated, pt exhibited a mildly impaired pharyngeal stripping wave, mildly impaired base of tongue movement, and mild-moderately impaired PES opening, which impaired pt's ability to move residue through pharynx. Additionally, pt exhibited moderately impaired laryngeal elevation and anterior hyoid excursion as well as partial inversion of epiglottis and moderately impaired laryngeal vestibular closure, which further increased risk for aspiration. Penetration was observed with thin liquids x1 (PAS 3) and aspiration was observed with nectar thick liquids (x2, PAS 5 and 8), honey thick liquids (x1, PAS 5 ), and solids (x1, PAS 8), all of which was silent. When pt was cued to swallow to clear residue, he exhibited confusion, as evidenced by asking questions (e.g., swallow nothing?) and when questions were answered, pt did not swallow. Pt observed to independently use chin tuck when swallowing. When prompted to use chin tuck and head turn, pt required cues to keep his head in turned and tucked position for whole swallow. Head turn did not appear to make a difference in swallow safety. Cricopharyngeal bar present on posterior pharyngeal wall. A/P View Clinical Impressions Dysphagia Type Oropharyngeal dysphagia Findings The pt presents with moderately-severe oropharyngeal phase dysphagia secondary to dementia and Parkinson's disease. He exhibited reduced airway protection, characterized by moderately impaired epiglottic inversion and moderately impaired laryngeal vesitbular closure in addition to high levels of residue, which pt had difficulty clearing due to reduced strength in pharyngeal muscles. Additionally, pt exhibited posterior loss of bolus during tongue hold and mastication, which further contributed to pharyngeal residue and negatively impacts swallow safety. Several instances of aspiration and penetration observed across textures, all of which was silent. Recommend honey to pudding thick liquids to reduce risk of aspiration in addition to speech therapy to increase strength of oral and pharyngeal muscles for improved swallow safety. Pt has support at home (caregiver 5-6 days per week and ) who can provide ongoing support with swallow exercises and thickening liquids. Due to progressive nature of pt's disorder, swallow will likely continue to worsen and pt will likely continue to silently aspirate food and liquid, regardless of thickness. Family may decide to continue with current plan of care (no speech treatment, thin liquids and regular textures) based on pt tolerance of diet and cognitive ability to participate in speech therapy. Rehabilitation Potential Poor Patient Appropriate for Therapy Yes: May benefit, gains will likely be small and temporary given diagnosis. Recommendations Diet Liquids Order Pudding Diet Order Regular Medication Recommendation As Tolerated Aspiration Precautions Recommended Precautions Upright at 90 Degrees,Small Bites/Sips,Chin Tuck,Effortful Swallow,Double Swallow, Liquids from Spoon Treatment Plan Therapy Recommendations Outpatient Speech Therapy Compensatory Strategies Recommendations Sitting Upright (90 deg),Chin Tuck,Double Swallow,Liquids from Spoon,Small Bites and Sips
== END ==
PROVIDERS: PCP Family Medicine; Referring Provider Family Medicine; Visit Provider Family Medicine
DX: T17.308A Unspecified foreign body in larynx causing other injury, initial encounter (principal); R09.89 Other specified symptoms and signs involving the circulatory and respiratory systems; R41.89 Other symptoms and signs involving cognitive functions and awareness
CPT/HCPCS: 36415; 74230; 82607; 92611

== ENCOUNTER → 2022-05-22 13:12 | Outpatient (CLI) | payer OTHER, SELFPAY ==
[2022-05-22 18:19] LABS: Vitamin B12 727 pg/mL (239-931)
== END ==
PROVIDERS: PCP Family Medicine; Referring Provider Psychiatry & Neurology Neurology; Visit Provider Psychiatry & Neurology Neurology
DX: R41.89 Other symptoms and signs involving cognitive functions and awareness (principal)
CPT/HCPCS: 36415; 82607

== ENCOUNTER → 2022-06-15 11:50 | Outpatient (CLI) | payer OTHER, SELFPAY ==
--- NOTE | 2022-06-15 11:51 | DI.RAD.S_ITS ---
PROCEDURE: XR LUMBAR SPINE 2-3V INDICATIONS: Pain after fall/h/o compression fracture TECHNIQUE: 3 views of the lumbar spine were acquired. COMPARISON: [facility], , XR LUMBAR SPINE 2-3V, 05/10/2021, 11:29. FINDINGS: Bones: 5 [id number] vertebrae are present. Mild levo curvature centered at the L3 level. 3 mm retrolisthesis L1-L2, L2-L3 and L3-L4. 3 mm spondylolisthesis L4-L5. Multilevel disc height loss with endplate sclerosis and spurring most notably and severe at the L5-S1 level. Moderate facet joint arthropathy from the L3-L4 through the L5-S1 level. Mild compression fracture again seen at the L4 level unchanged and no new fractures are seen. Soft tissues: Overlying bowel gas pattern is normal. No suspicious soft tissue calcifications. IMPRESSION: 1. Mild L4 compression fracture unchanged from prior examination and no definitive new compression fracture seen. 2. Multilevel lumbar spine spondylosis similar to prior examination. Dictated by: Walt Johnson [facility] Interpreted: Zachariah Quiñonez MD on 06/15/2022 at 13:44 Transcribed by: JOSE on 06/15/2022 at 13:47 Approved by: Zachariah Quiñonez M.D. on 06/15/2022 at 17:09
== END ==
PROVIDERS: PCP Family Medicine; Referring Provider Family Medicine; Visit Provider Family Medicine
DX: S32.049A Unspecified fracture of fourth lumbar vertebra, initial encounter for closed fracture (principal); M47.816 Spondylosis without myelopathy or radiculopathy, lumbar region; M47.817 Spondylosis without myelopathy or radiculopathy, lumbosacral region; W19.XXXA Unspecified fall, initial encounter; M54.50 Low back pain, unspecified
CPT/HCPCS: 72100

== ENCOUNTER → 2022-12-06 14:39 | Outpatient (ROUT) | payer OTHER, SELFPAY ==
[2022-12-06 14:59] LABS: Appearance Urine UA CLEAR; Bilirubin Urine UA NEGATIVE (NEGATIVE); Color Urine UA YELLOW; Glucose Urine UA NEGATIVE (Negative); Ketones Urine UA TRACE (NEGATIVE); Leukocyte Esterase Urine UA NEGATIVE (NEGATIVE); Nitrite Urine UA NEGATIVE (Negative); Occult Blood Urine UA NEGATIVE (Negative); Protein Urine UA TRACE (Negative)
[2022-12-06 15:24] LABS: Bacteria Urine None Seen; Calcium Oxalate Crystals Urine Moderate; Culture Indicated Urine Cult Not Indicated; RBC Urine None Seen (0-5/HPF); Squamous Epithelial Cell Urine 0-1 /HPF (0-5/HPF); WBC Urine 0-1/HPF (0-5/HPF)
== END ==
PROVIDERS: PCP Family Medicine; Visit Provider Family Medicine
DX: R35.0 Frequency of micturition (principal)
CPT/HCPCS: 81001

== ENCOUNTER → 2022-12-26 14:33 | Outpatient (CLI) | payer OTHER, SELFPAY ==
[2022-12-26 15:06] LABS: Add Manual Diff / Slide Review NO; Basophils Absolute Auto 100 /uL (0-100); Basophils Percent Auto 0.7 % (0-2); Eosinophils Absolute Auto 200 /uL (0-450); Eosinophils Percent Auto 2.2 % (2-4); Lymphocytes Absolute Auto 800 /uL (1100-4500); Mean Corpuscular HGB Conc 34.2 % (30-36); Mean Corpuscular Hemoglobin 31.3 PG (26-34); Mean Corpuscular Volume 91.4 fL (80-100); Monocytes Absolute Auto 600 /uL (0-900); Monocytes Percent Auto 8.2 % (3-14); Neutrophils Absolute Auto 5900 /uL (1500-7000); Neutrophils Percent Auto 77.9 % (50-75); Platelet Count 271 X10^3/uL (150-400); Red Blood Cell Count 4.48 X10^6/uL (4.5-5.9); Red Cell Distribution Width 13.9 % (11.6-14.8); White Blood Cell Count 7.6 X10^3/uL (4.5-11.0)
[2022-12-26 15:22] LABS: Alanine Aminotransferase 22 IU/L (<50); Albumin 3.8 g/dL (3.5-5.0); Albumin Globulin Ratio 1.4 (1.0-2.8); Alkaline Phosphatase 69 U/L (38-126); Aspartate Aminotransferase 30 IU/L (17-59); BUN Creatinine Ratio 20.6 (6-22); Bilirubin Total 0.3 mg/dL (0.2-1.3); Blood Urea Nitrogen 21 mg/dL (9-20); Calcium 8.8 mg/dL (8.4-10.2); Carbon Dioxide 30 mmol/L (22-32); Chloride 103 mmol/L (98-107); Estimated Glomerular Filt Rate > 60 mL/min (>60); Globulin 2.8 g/dL (1.7-4.1); Glucose 109 mg/dL (80-110); HEMOLYSIS 19 (0-50); Potassium 4.2 mmol/L (3.4-5.1); Sodium 137 mmol/L (137-145); Total Protein 6.6 g/dL (6.3-8.2)
[2022-12-26 16:18] LABS: Thyroid Stimulating Hormone 2.12 uIU/mL (0.47-4.68)
== END ==
PROVIDERS: PCP Family Medicine; Referring Provider Family Medicine; Visit Provider Family Medicine
DX: I10 Essential (primary) hypertension (principal); Z13.9 Encounter for screening, unspecified
CPT/HCPCS: 36415; 80053; 84443; 85025

== ENCOUNTER 2022-12-28 22:27 | Emergency (ER) | payer OTHER, SELFPAY ==
[2022-12-28 22:30] VITALS: BP 152/75; PULSE 62; RESP 16; TEMP 36.6; O2SAT 97; BMI 25.7
[2022-12-28 22:31] VITALS: PULSE 61; O2SAT 97
--- NOTE | 2022-12-28 22:41 | DI.CT.S_ITS ---
PROCEDURE: CT HEAD/BRAIN WO CON INDICATIONS: fall TECHNIQUE: Noncontrast 4.5 mm thick angled axial sections acquired from the foramen magnum to the vertex, with coronal and sagittal reformats. For radiation dose reduction, the following was used: automated exposure control, adjustment of mA and/or kV according to patient size. COMPARISON: [facility], CT, CT HEAD/BRAIN WO CON, 05/22/2018, 10:02. FINDINGS: Image quality: Excellent. CSF spaces: Basal cisterns are patent. No extra-axial fluid collections. There is moderate to severe cerebral volume loss, with resultant ventricular and sulcal prominence. Brain: No intracranial hemorrhage, mass, or mass effect. There are subcortical, periventricular and deep white matter hypodensities consistent with moderate chronic small vessel ischemic changes. The monge-white matter junction appears preserved. There is intracranial internal carotid artery atherosclerosis. Skull and face: Calvarium and visualized facial bones appear intact, without suspicious lesions. Sinuses: Visualized sinuses and mastoids are clear. IMPRESSION: 1. No acute intracranial abnormality. 2. Moderate to severe cerebral volume loss and moderate chronic white matter small vessel ischemic changes. Dictated by: Abel Dai M.D. on 12/28/2022 at 23:07 Approved by: Abel Dai M.D. on 12/28/2022 at 23:08
--- NOTE | 2022-12-28 22:42 | DI.CT.S_ITS ---
PROCEDURE: CT CERVICAL SPINE WO CON INDICATIONS: fall TECHNIQUE: Noncontrast 3 mm thick sections acquired from the skull base to the T4 level. Sagittal and coronal reformats were then constructed. For radiation dose reduction, the following was used: automated exposure control, adjustment of mA and/or kV according to patient size. COMPARISON: [facility], , C-SPINE WITHOUT CONTRAST, 07/15/2015, 15:17. FINDINGS: Image quality: Excellent. Bones: No fractures or subluxation. There is straightening of the cervical lordosis. Mild anterolisthesis demonstrated at C2-C3, C3-C4, and C7-T1. There is extensive multilevel degenerative disc disease and facet joint arthropathy throughout the cervical spine. Visualized superior ribs are intact. Soft tissues: Prevertebral soft tissues are normal in thickness. No paravertebral hematomas. No apical pneumothoraces. IMPRESSION: 1. No acute fracture or subluxation. 2. Straightening of the cervical lordosis with mild multilevel anterolisthesis. Dictated by: Abel Dai M.D. on 12/28/2022 at 23:09 Approved by: Abel Dai M.D. on 12/28/2022 at 23:10
[2022-12-28 23:00] VITALS: PULSE 62; O2SAT 97
[2022-12-28 23:03] VITALS: BP 157/74; PULSE 60; O2SAT 97
--- NOTE | 2022-12-28 23:16 | ED_ITS ---
HPI - Fall General Chief Complaint: Fall Stated Complaint: fall on thinners Time Seen by Provider: 12/28/22 22:53 Source: patient and EMS Mode of arrival: EMS History of Present Illness HPI Narrative: Patient is an 82-year-old male. Reported history of being on anticoagulation. Does live in a memory care facility. Is here for evaluation of was described as a fall. It was reported that the patient rolled out of bed hitting his head on the bed stand. He reports no injuries from the event. He told me that he did fall. He is at his baseline mental status per report from EMS. Related Data Home Medications Medication Instructions Recorded Confirmed Probiotic 1 cap PO DAILY 05/22/18 01/12/22 multivitamin 1 tab PO DAILY 05/22/18 01/12/22 vitamin B complex 1 tab PO DAILY 05/22/18 01/12/22 melatonin 12 mg tablet 12 mg PO .HS 05/25/21 01/12/22 acetaminophen 500 mg tablet 500 mg PO Q6H PRN 07/14/21 01/12/22 (Tylenol Extra Strength) Previous Rx's Medication Instructions Recorded DISABLED PARKING PERMIT #1 ea 02/11/20 donepezil 10 mg tablet See Rx Instructions .Route 06/29/21 .COMPLEX #90 tabs metoprolol succinate 25 mg See Rx Instructions .Route 02/07/22 tablet,extended release 24 hr .COMPLEX #60 tabs finasteride 5 mg tablet See Rx Instructions .Route 03/07/22 .COMPLEX #90 tabs tamsulosin 0.4 mg capsule See Rx Instructions .Route 07/25/22 .COMPLEX #180 caps lisinopril 5 mg tablet See Rx Instructions .Route 08/08/22 .COMPLEX #90 tabs methimazole 5 mg tablet See Rx Instructions .Route 08/08/22 .COMPLEX #90 tabs dabigatran etexilate 150 mg See Rx Instructions .Route 09/12/22 capsule (Pradaxa) .COMPLEX #180 caps Wheelchair #1 ea 09/14/22 cholecalciferol (vitamin D3) 50 See Rx Instructions .Route 12/26/22 mcg (2,000 unit) capsule .COMPLEX #30 caps Allergies Allergy/AdvReac Type Severity Reaction Status Date / Time Sulfa (Sulfonamide Allergy Severe PER PT Verified 01/12/22 14:45 Antibiotics) WHITE [SULFA (SULFONAMIDE BLOOD ANTIBIOTICS)] CELLS ELIMINATE RED BLOOD CELLS codeine [CODEINE] Allergy Mild BAD Verified 01/12/22 14:45 HEADACHES Review of Systems Cardiovascular Comments: Patient denies chest pain Respiratory Comments: Denies shortness of breath Gastrointestinal Comments: Denies abdominal pain Hematologic/Lymphatic On Anticoagulants: Yes Patient History Medical History Abrasion of multiple sites of hand and finger BPH (benign prostatic hyperplasia) Fall in home Inflamed seborrheic keratosis Laceration of hand Laceration of right upper arm Low back pain Multiple falls Neurodegenerative cognitive impairment (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) Parkinsons disease Tendinitis of left rotator cuff Visit for suture removal Weakness Surgical History History of inguinal hernia repair Status post appendectomy Status post tonsillectomy and adenoidectomy Family History Father Lung cancer Mother Alzheimer's disease Social History marital status: household members: spouse Smoking Status: Former smoker alcohol intake: current substance use type: does not use Smoking Status: Former smoker alcohol intake frequency: 0-2 drinks per day Substance Use Type: does not use Exam Initial Vital Signs Initial Vital Signs: Vital Signs Temperature 98 F 12/28/22 22:30 Pulse Rate 62 12/28/22 22:30 Respiratory Rate 16 12/28/22 22:30 Blood Pressure 152/75 H 12/28/22 22:30 Pulse Oximetry 97 12/28/22 22:30 Oxygen Delivery Method Room Air 12/28/22 22:30 [facility] Head: atraumatic Chest Chest: No crepitus and No tenderness Resp Effort & Inspection: normal respiratory effort Cardio Rate: regular rate Neuro Speech: speech normal Other: Patient is alert to person and situation but does not know will place he is what year it is. Extrem Other: Patient has no discomfort with movement of his upper lower extremities. His pelvis is stable. Scores GCS Neda coma scale eye opening: Spontaneous Alviso coma scale verbal response: Confused Alviso coma scale motor response: Obey commands Alviso coma scale total score: 14 Course Orders Ordered: ED Orders 06/01/23 22:41 CT head/brain wo con Stat 12/28/22 22:42 CT cervical spine wo con Stat Vital Signs Vital signs: Vital Signs - 8 hr 12/28/22 22:30 12/28/22 22:30 12/28/22 22:31 Temperature 98 F Pulse Rate 62 61 Respiratory Rate 16 Blood Pressure 152/75 H 152/75 H Pulse Oximetry 97 97 Oxygen Delivery Method Room Air Room Air 12/28/22 23:00 12/28/22 23:03 12/28/22 23:03 Temperature Pulse Rate 62 60 Respiratory Rate Blood Pressure 157/74 H Pulse Oximetry 97 97 Oxygen Delivery Method Room Air Room Air MDM - Fall Imaging Data CT scan - head: Radiologist's Impression: PROCEDURE:? CT HEAD/BRAIN WO CON ? INDICATIONS:? fall ? TECHNIQUE:? Noncontrast 4.5 mm thick angled axial sections acquired from the foramen magnum to the vertex, with coronal and sagittal reformats.? For radiation dose reduction, the following was used:? automated exposure control, adjustment of mA and/or kV according to patient size.? ? COMPARISON:? [facility], CT, CT HEAD/BRAIN WO CON, 05/22/2018, 10:02. ? FINDINGS:? Image quality:? Excellent.? ? CSF spaces:? Basal cisterns are patent.? No extra-axial fluid collections.? There is moderate to severe cerebral volume loss, with resultant ventricular and sulcal prominence.? ? Brain:? No intracranial hemorrhage, mass, or mass effect.? There are subcortical, periventricular and deep white matter hypodensities consistent with moderate chronic small vessel ischemic changes.? The monge-white matter junction appears preserved.? There is intracranial internal carotid artery atherosclerosis.? ? Skull and face:? Calvarium and visualized facial bones appear intact, without reyes spicious lesions.? ? Sinuses:? Visualized sinuses and mastoids are clear.? ? IMPRESSION:? ? 1. No acute intracranial abnormality. ? 2. Moderate to severe cerebral volume loss and moderate chronic white matter small vessel ischemic changes. CT - cervical spine: Radiologist's Impression: PROCEDURE:? CT CERVICAL SPINE WO CON ? INDICATIONS:? fall ? TECHNIQUE:? Noncontrast 3 mm thick sections acquired from the skull base to the T4 level.? Sagittal and coronal reformats were then constructed.? For radiation dose reduction, the following was used:? automated exposure control, adjustment of mA and/or kV according to patient size.? ? COMPARISON:? [facility], MR, C-SPINE WITHOUT CONTRAST, 07/15/2015, 15:17. ? FINDINGS:? Image quality:? Excellent.? ? Bones:? No fractures or subluxation.? There is straightening of the cervical lordosis.? Mild anterolisthesis demonstrated at C2-C3, C3-C4, and C7-T1.? There is extensive multilevel degenerative disc disease and facet joint arthropathy throughout the cervical spine.? Visualized superior ribs are intact.? ? Soft tissues:? Prevertebral soft tissues are normal in thickness.? No pa ravertebral hematomas.? No apical pneumothoraces.? ? ? IMPRESSION:? ? 1. No acute fracture or subluxation. ? 2. Straightening of the cervical lordosis with mild multilevel anterolisthesis.? MDM Narrative Medical decision making narrative: CT scans here are unremarkable. Has no other signs of injuries. Is able to move both his upper and lower extremities without difficulty. No further workup required here in the emergency department. You will be discharged back to his memory care facility. Discharge Plan Departure Patient Disposition: Home Clinical Impression: Fall Instructions: How to Prevent Falls Activity Restrictions/Additional Instructions: Kenny can continue to take all of his medications as directed. I recommend that his primary doctor be notified that he was brought to the emergency department this evening. He can return to the emergency department for any new symptoms. Prescriptions: No Action (DME) DISABLED PARKING PERMIT See Rx Instructions .ROUTE .MEDSUPPLY Qty: 1 0RF Rx Instructions: I find this patient to be medically disabled and qualified for disabled parking as indicated, and signed, on the accompanying Disabled Parking Application for Individuals. acetaminophen [Tylenol Extra Strength] 500 mg tablet 500 mg PO Q6H PRN melatonin 12 mg tablet 12 mg PO .HS donepezil 10 mg tablet See Rx Instructions .ROUTE .COMPLEX Qty: 90 3RF Dose Instruction: take 1 tablet by mouth every evening Rx Instructions: take 1 tablet by mouth every evening metoprolol succinate 25 mg tablet extended release 24 hr See Rx Instructions .ROUTE .COMPLEX Qty: 60 11RF Dose Instruction: take 1 tablet by mouth twice a day Rx Instructions: take 1 tablet by mouth twice a day finasteride 5 mg tablet See Rx Instructions .ROUTE .COMPLEX Qty: 90 3RF Dose Instruction: Take 1 tablet (5 mg) by mouth daily Rx Instructions: Take 1 tablet (5 mg) by mouth daily tamsulosin 0.4 mg capsule See Rx Instructions .ROUTE .COMPLEX Qty: 180 1RF Dose Instruction: Take 1 capsule (0.4 mg) by mouth 2 times daily Rx Instructions: Take 1 capsule (0.4 mg) by mouth 2 times daily lisinopril 5 mg tablet See Rx Instructions .ROUTE .COMPLEX Qty: 90 3RF Dose Instruction: Take 1 tablet (5 mg) by mouth daily Rx Instructions: Take 1 tablet (5 mg) by mouth daily methimazole 5 mg tablet See Rx Instructions .ROUTE .COMPLEX Qty: 90 3RF Dose Instruction: Take 1 tablet (5 mg) by mouth daily Rx Instructions: Take 1 tablet (5 mg) by mouth daily Pradaxa 150 mg capsule See Rx Instructions .ROUTE .COMPLEX Qty: 180 3RF Dose Instruction: Take 1 capsule (150 mg) by mouth 2 times daily Rx Instructions: Take 1 capsule (150 mg) by mouth 2 times daily (DME) Wheelchair See Rx Instructions .Route .MEDSUPPLY Qty: 1 0RF Rx Instructions: Pt wt 165 lbs, ht 71 in cholecalciferol (vitamin D3) 50 mcg (2,000 unit) capsule See Rx Instructions .ROUTE .COMPLEX Qty: 30 11RF Dose Instruction: GIVE 1 CAPSULE BY MOUTH EVERY MORNING FOR VITAMIN/SUPPLEMENT Rx Instructions: GIVE 1 CAPSULE BY MOUTH EVERY MORNING FOR VITAMIN/SUPPLEMENT vitamin B complex Tablet 1 tab PO DAILY Probiotic 1 cap PO DAILY multivitamin 1 tab PO DAILY Referrals: Jose Etienne MD [Primary Care Provider] - Stand Alone Forms: Patient Portal/API
[2022-12-28 23:30] VITALS: BP 131/71; PULSE 110; O2SAT 97
[2022-12-29 00:05] VITALS: PULSE 64; O2SAT 96
[2022-12-29 00:07] VITALS: BP 154/72; PULSE 63; O2SAT 96
== END 2022-12-29 00:13 | disposition home or self-care (01) ==
PROVIDERS: Emergency Provider Emergency Medicine; PCP Family Medicine
DX: Z71.1 Person with feared health complaint in whom no diagnosis is made (principal); W22.8XXA Striking against or struck by other objects, initial encounter; Z79.01 Long term (current) use of anticoagulants
CPT/HCPCS: 70450; 72125; 99283

== ENCOUNTER 2022-12-31 02:13 | Emergency (ER) | payer OTHER, SELFPAY ==
[2022-12-31] VITALS (15 sets, daily range): BP systolic 139–194; BP diastolic 66–99; PULSE 55–84; RESP 12–18; TEMP 36.8; O2SAT 91–98; BMI 22.6
--- NOTE | 2022-12-31 02:13 | DI.CT.S_ITS ---
PROCEDURE: CT CERVICAL SPINE WO CON INDICATIONS: fall with head injury TECHNIQUE: Noncontrast 3 mm thick sections acquired from the skull base to the T4 level. Sagittal and coronal reformats were then constructed. For radiation dose reduction, the following was used: automated exposure control, adjustment of mA and/or kV according to patient size. COMPARISON: [facility], CT, CT CERVICAL SPINE WO CON, 12/28/2022, 22:47. FINDINGS: Image quality: Excellent. Bones: No fractures or dislocations. Straightening of cervical lordosis. Old moderate superior endplate T1 compression fracture. Moderate to severe disc and facet disease throughout the cervical spine. The left C4-5 facet and probably the disc level are ankylosed. Moderate to severe multilevel foraminal stenosis throughout the cervical spine. Visualized superior ribs are intact. Soft tissues: Prevertebral soft tissues are normal in thickness. No paravertebral hematomas. No apical pneumothoraces. Mild reticular opacities in the lung apices. IMPRESSION: Degenerative spondylosis with no acute fracture. No acute abnormality. Comment: Final report is concordant with preliminary interpretation by [facility] Dictated by: Orlando Olea M.D. on 12/31/2022 at 8:32 Approved by: Orlando Olea M.D. on 12/31/2022 at 8:34
--- NOTE | 2022-12-31 02:13 | DI.CT.S_ITS ---
PROCEDURE: CT HEAD/BRAIN WO CON INDICATIONS: fall with head injury on pradaxa TECHNIQUE: Noncontrast 4.5 mm thick angled axial sections acquired from the foramen magnum to the vertex, with coronal and sagittal reformats. For radiation dose reduction, the following was used: automated exposure control, adjustment of mA and/or kV according to patient size. COMPARISON: [facility], CT, CT HEAD/BRAIN WO CON, 12/28/2022, 22:47. FINDINGS: Image quality: Excellent. CSF spaces: Basal cisterns are patent. No extra-axial fluid collections. The ventricles are symmetric in size and shape. There is moderate to severe volume loss with resultant ventricular and sulcal prominence. Brain: No intracranial bleeds or masses. There is cerebral volume loss for age, with resultant ventricular and sulcal prominence. There are periventricular and deep white matter chronic small vessel ischemic changes. There is intracranial internal carotid artery atherosclerosis. Skull and face: Calvarium and visualized facial bones appear intact, without suspicious lesions. Sinuses: Visualized sinuses and mastoids are clear. IMPRESSION: 1. No acute intracranial abnormality. 2. Moderate to severe cerebral volume loss and chronic small vessel ischemic changes with resultant ventriculomegaly which is unchanged compared to the prior CT. Dictated by: Orlando Olea M.D. on 12/31/2022 at 8:30 Approved by: Orlando Olea M.D. on 12/31/2022 at 8:32
--- NOTE | 2022-12-31 02:36 | DI.CT.S_ITS ---
PROCEDURE: CT PEL WO CON INDICATIONS: fall with hip pain TECHNIQUE: Noncontrast 3 mm axial sections acquired through the bony pelvis, with coronal and sagittal reformatting. COMPARISON: None. FINDINGS: Image quality: Excellent. Bones: Old superior endplate L3 Schmorl's node and old moderate superior endplate compression fracture of L4. Moderate to severe lumbar degenerative spondylosis. Moderate to severe lumbar foraminal stenosis. No acute fracture or dislocation. Moderate bilateral hip degenerative changes. Soft tissues: Left posterolateral small urinary bladder diverticulum. Moderate stool in the pelvis. No ascites or hernia. IMPRESSION: No acute injury of the pelvis is evident. Comment: Final report is concordant with preliminary interpretation by [facility] Dictated by: Orlando Olea M.D. on 12/31/2022 at 8:34 Approved by: Orlando Olea M.D. on 12/31/2022 at 8:35
--- NOTE | 2022-12-31 02:36 | ED_ITS ---
HPI - General Adult General Chief complaint: Fall Stated complaint: rolled off the side of the bed- fall Time Seen by Provider: 12/31/22 02:20 History of Present Illness HPI narrative: 82-year-old male former smoker is a full code patient with history of atrial fibrillation on Pradaxa, hypertension, hyperlipidemia presents by EMS for evaluation of injury suffered as a consequence of a fall just prior to arrival. He lives at a local [facility] care facility and was found lying on the ground next to his bed, he had been seen and evaluated a few days ago under similar circumstances and as a result they have padded the floor. This fall was not witnessed but assumed given the circumstances. Patient has an abrasion on his head and complains of aches and pains all over. There is no obvious loss of consciousness, he is had no vomiting. He is activated as a modified trauma given fall with head injury on anticoagulants Related Data Home Medications Medication Instructions Recorded Confirmed Probiotic 1 cap PO DAILY 05/22/18 01/12/22 multivitamin 1 tab PO DAILY 05/22/18 01/12/22 vitamin B complex 1 tab PO DAILY 05/22/18 01/12/22 melatonin 12 mg tablet 12 mg PO .HS 05/25/21 01/12/22 acetaminophen 500 mg tablet 500 mg PO Q6H PRN 07/14/21 01/12/22 (Tylenol Extra Strength) Previous Rx's Medication Instructions Recorded DISABLED PARKING PERMIT #1 ea 02/11/20 donepezil 10 mg tablet See Rx Instructions .Route 06/29/21 .COMPLEX #90 tabs metoprolol succinate 25 mg See Rx Instructions .Route 02/07/22 tablet,extended release 24 hr .COMPLEX #60 tabs finasteride 5 mg tablet See Rx Instructions .Route 03/07/22 .COMPLEX #90 tabs tamsulosin 0.4 mg capsule See Rx Instructions .Route 07/25/22 .COMPLEX #180 caps lisinopril 5 mg tablet See Rx Instructions .Route 08/08/22 .COMPLEX #90 tabs methimazole 5 mg tablet See Rx Instructions .Route 08/08/22 .COMPLEX #90 tabs dabigatran etexilate 150 mg See Rx Instructions .Route 09/12/22 capsule (Pradaxa) .COMPLEX #180 caps Wheelchair #1 ea 09/14/22 cholecalciferol (vitamin D3) 50 See Rx Instructions .Route 12/26/22 mcg (2,000 unit) capsule .COMPLEX #30 caps Allergies Allergy/AdvReac Type Severity Reaction Status Date / Time Sulfa (Sulfonamide Allergy Severe PER PT Verified 01/12/22 14:45 Antibiotics) WHITE [SULFA (SULFONAMIDE BLOOD ANTIBIOTICS)] CELLS ELIMINATE RED BLOOD CELLS codeine [CODEINE] Allergy Mild BAD Verified 01/12/22 14:45 HEADACHES Review of Systems Review of Systems Narrative: GENERAL: Denies chills, fatigue, malaise, fever, sweats. HEENT: Denies sinus pain, ear pain, sore throat, difficulty swallowing, dizziness. RESPIRATORY: Denies dyspnea, cough, wheezing, hemoptysis, sputum. CARDIOVASCULAR: Denies chest pain, palpitations, orthopnea, edema, GASTROINTESTINAL: Denies nausea, vomiting, abdominal pain, diarrhea, constipation, melena. : Denies dysuria, frequency, incontinence, hematuria, urinary retention. MUSCULOSKELETAL: See HPI SKIN: Denies rash, skin lesions, or other NEUROLOGIC: Denies weakness, headache, numbness, change in speech, confusion, seizures, incoordination. PSYCHIATRIC: No concerning psychosocial issues. 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) Parkinsons disease Tendinitis of left rotator cuff Visit for suture removal Weakness Surgical History History of inguinal hernia repair Status post appendectomy Status post tonsillectomy and adenoidectomy Family History Father Lung cancer Mother Alzheimer's disease Social History marital status: household members: spouse Smoking Status: Former smoker alcohol intake: current substance use type: does not use Smoking Status: Former smoker alcohol intake frequency: 0-2 drinks per day Substance Use Type: does not use Exam Narrative Exam Narrative: GENERAL: [82] year old patient appears stated age. Well-developed patient, in mild distress. GCS 14, pleasantly confused HEAD: Quarter-sized even R[place] and superficial abrasion right forehead, no other obvious contusion, abrasion, no evidence of depressed skull fracture EYES: Pupils equal round and reactive. No hyphema Extraocular motions intact. No scleral icterus. No injection or drainage. ENT: Nose without bleeding, purulent drainage. No nasal septal hematoma or hemotympanum Throat without erythema, tonsillar hypertrophy or exudate. Airway patent. NECK: Trachea midline. Non tender CARDIOVASCULAR: Regular rate and rhythm without murmurs, gallops, or rubs. RESPIRATORY: Clear to auscultation. Breath sounds equal bilaterally. No wheezes, rales, or rhonchi. GASTROINTESTINAL: Abdomen soft, non-tender, nondistended. EXTREMITIES: Superficial abrasion right lateral elbow, perhaps old given thin scab, full, painless range of motion at shoulders, elbows and wrists. He does have some tenderness to palpation of bilateral hips, no obvious deformity or shortening BACK: Nontender without deformity or crepitance. No flank tenderness. NEURO: Cranial nerves 2-12 grossly intact SKIN: No rash or erythema of visible areas Initial Vital Signs Initial Vital Signs: Vital Signs Temperature 98.2 F 12/31/22 02:15 Pulse Rate 65 12/31/22 02:15 Respiratory Rate 16 12/31/22 02:15 Blood Pressure 188/86 H 12/31/22 02:15 Pulse Oximetry 98 12/31/22 02:15 Oxygen Delivery Method Room Air 12/31/22 02:15 Course Orders Ordered: ED Orders 12/31/22 02:13 CT cervical spine wo con Stat CT head/brain wo con Stat 12/31/22 02:36 CT pelvis wo con Stat Vital Signs Vital signs: Vital Signs - 8 hr 12/31/22 02:15 12/31/22 02:15 12/31/22 02:44 Temperature 98.2 F Pulse Rate 65 66 Respiratory Rate 16 Blood Pressure 188/86 H Pulse Oximetry 98 98 Oxygen Delivery Method Room Air Room Air Room Air 12/31/22 03:00 Temperature Pulse Rate 60 Respiratory Rate 14 Blood Pressure Pulse Oximetry 97 Oxygen Delivery Method Medical Decision Making MDM Narrative Medical decision making narrative: [82] year old patient presents with fall and head injury on blood thinners Multiple etiologies for patient's symptoms considered including, but not limited to: [Scalp abrasion versus hematoma versus intracranial hemorrhage versus cervical fracture versus pelvic fracture versus contusion versus other] Prior Charts reviewed in our EMR Primary Historian: patient Imaging reviewed: CT of head notes no intracranial abnormality, CT C-spine notes NAP, CT pelvis notes NAP Patient's symptoms improved over duration of stay with above-stated therapies. Findings and discharge diagnosis discussed with patient/family followed by verbalization of understanding Return precautions discussed with patient/family whom verbalize understanding of diagnosis and plan Discharge Plan Departure Patient Disposition: Home Clinical Impression: Hematoma of frontal scalp, Abrasion of scalp, Abrasion of elbow Instructions: How to Prevent Falls Activity Restrictions/Additional Instructions: *You have been diagnosed with [fall with minor injuries. As we discussed CT scans are reassuring and there is no evidence of bleeding in your brain nor any bony abnormalities of your neck, pelvis or hips.] *What to do: *Please continue to take your regular medications as directed. *Please follow up with your primary care provider in 2-3 days, call for an appointment. Let them know you were seen in the Emergency Department and that we ask that you be seen in follow up. We will electronically transmit a record of today's note if your PCP is in our system *If you do not have a primary care provider please contact the [facility] Resource line at [phone]. They will ask some questions about your medical history and help get you set up with a doctor in the community. *Return to Emergency Department if you should have any new, worsening or concerning symptoms, such as [fever greater than 101 F, shaking chills, worsening pain, persistent vomiting or other bothersome symptoms] Prescriptions: No Action (DME) DISABLED PARKING PERMIT See Rx Instructions .ROUTE .MEDSUPPLY Qty: 1 0RF Rx Instructions: I find this patient to be medically disabled and qualified for disabled parking as indicated, and signed, on the accompanying Disabled Parking Application for Individuals. acetaminophen [Tylenol Extra Strength] 500 mg tablet 500 mg PO Q6H PRN melatonin 12 mg tablet 12 mg PO .HS donepezil 10 mg tablet See Rx Instructions .ROUTE .COMPLEX Qty: 90 3RF Dose Instruction: take 1 tablet by mouth every evening Rx Instructions: take 1 tablet by mouth every evening metoprolol succinate 25 mg tablet extended release 24 hr See Rx Instructions .ROUTE .COMPLEX Qty: 60 11RF Dose Instruction: take 1 tablet by mouth twice a day Rx Instructions: take 1 tablet by mouth twice a day finasteride 5 mg tablet See Rx Instructions .ROUTE .COMPLEX Qty: 90 3RF Dose Instruction: Take 1 tablet (5 mg) by mouth daily Rx Instructions: Take 1 tablet (5 mg) by mouth daily tamsulosin 0.4 mg capsule See Rx Instructions .ROUTE .COMPLEX Qty: 180 1RF Dose Instruction: Take 1 capsule (0.4 mg) by mouth 2 times daily Rx Instructions: Take 1 capsule (0.4 mg) by mouth 2 times daily lisinopril 5 mg tablet See Rx Instructions .ROUTE .COMPLEX Qty: 90 3RF Dose Instruction: Take 1 tablet (5 mg) by mouth daily Rx Instructions: Take 1 tablet (5 mg) by mouth daily methimazole 5 mg tablet See Rx Instructions .ROUTE .COMPLEX Qty: 90 3RF Dose Instruction: Take 1 tablet (5 mg) by mouth daily Rx Instructions: Take 1 tablet (5 mg) by mouth daily Pradaxa 150 mg capsule See Rx Instructions .ROUTE .COMPLEX Qty: 180 3RF Dose Instruction: Take 1 capsule (150 mg) by mouth 2 times daily Rx Instructions: Take 1 capsule (150 mg) by mouth 2 times daily (DME) Wheelchair See Rx Instructions .Route .MEDSUPPLY Qty: 1 0RF Rx Instructions: Pt wt 165 lbs, ht 71 in cholecalciferol (vitamin D3) 50 mcg (2,000 unit) capsule See Rx Instructions .ROUTE .COMPLEX Qty: 30 11RF Dose Instruction: GIVE 1 CAPSULE BY MOUTH EVERY MORNING FOR VITAMIN/SUPPLEMENT Rx Instructions: GIVE 1 CAPSULE BY MOUTH EVERY MORNING FOR VITAMIN/SUPPLEMENT vitamin B complex Tablet 1 tab PO DAILY Probiotic 1 cap PO DAILY multivitamin 1 tab PO DAILY Referrals: Jose Etienne MD [Primary Care Provider] - Stand Alone Forms: Patient Portal/API
== END 2022-12-31 05:37 | disposition home or self-care (01) ==
LOC: ED 03:10
PROVIDERS: Emergency Provider Emergency Medicine; PCP Family Medicine
DX: S00.03XA Contusion of scalp, initial encounter (principal); S00.01XA Abrasion of scalp, initial encounter; S50.311A Abrasion of right elbow, initial encounter; W06.XXXA Fall from bed, initial encounter
CPT/HCPCS: 70450; 72125; 72192; 99284

== ENCOUNTER → 2023-01-16 13:25 | Outpatient (ROUT) | payer OTHER, SELFPAY ==
[2023-01-16 13:44] LABS: Appearance Urine UA CLOUDY; Bilirubin Urine UA NEGATIVE (NEGATIVE); Color Urine UA YELLOW; Glucose Urine UA NEGATIVE (Negative); Ketones Urine UA NEGATIVE (NEGATIVE); Leukocyte Esterase Urine UA 3+ (NEGATIVE); Nitrite Urine UA POSITIVE (Negative); Occult Blood Urine UA 2+ (Negative); Protein Urine UA 2+ (Negative); pH Urine UA 6.5 (4.5-8.0)
[2023-01-16 13:54] LABS: RBC Urine 1-5/HPF (0-5/HPF)
[2023-01-16 13:55] LABS: Bacteria Urine Many (>30); Culture Indicated Urine Specimen Cultured; Squamous Epithelial Cell Urine 1-5 /HPF (0-5/HPF); WBC Urine >100/HPF (0-5/HPF)
== END ==
PROVIDERS: PCP Family Medicine; Visit Provider Nurse Practitioner Family
DX: R30.0 Dysuria (principal); R31.9 Hematuria, unspecified
CPT/HCPCS: 81001; 87077; 87086; 87147; 87186

== ENCOUNTER 2023-01-17 08:48 | Emergency (ER) | payer OTHER, SELFPAY ==
[2023-01-17] VITALS (7 sets, daily range): BP systolic 121–134; BP diastolic 86–96; PULSE 61–120; RESP 20; TEMP 36.3; O2SAT 94–98; BMI 23.7
--- NOTE | 2023-01-17 08:54 | DI.RAD.S_ITS ---
PROCEDURE: XR CHEST 1V INDICATIONS: weakness TECHNIQUE: One view of the chest was acquired. COMPARISON: [facility], CR, XR CHEST 1V, 05/22/2018, 9:22. FINDINGS: Surgical changes and devices: None. Lungs and pleura: Low lung volumes. No dense consolidation or pleural effusion. A small linear opacity is seen in the left lung base, probably scarring or atelectasis. Mediastinum: Mediastinal contours appear normal. Heart size is normal. Bones and chest wall: Degenerative shoulder changes. IMPRESSION: Low lung volumes, limiting evaluation. No acute radiographic abnormality. A small linear opacity left lung base, probably atelectasis or scarring. Dictated by: Mir Montaño M.D. on 01/17/2023 at 9:48 Approved by: Mir Montaño M.D. on 01/17/2023 at 9:49
--- NOTE | 2023-01-17 08:55 | ED_ITS ---
HPI - General Adult General Chief complaint: Urogenital-Male Stated complaint: Lethargic with known UTI Time Seen by Provider: 01/17/23 08:53 History of Present Illness HPI narrative: 82-year-old male former smoker with dementia, AFib on Pradaxa, hypertension, hyperlipidemia presents by EMS for evaluation of intermediate report of increased lethargy. It is reported that he was diagnosed with a UTI yesterday and has a single dose of ciprofloxacin. He is had no fever or chills. No s pecific complaints. No report of trauma or injury. No cough or shortness of breath. No chest pain. Alert with stable vitals for EMS Related Data Home Medications Medication Instructions Recorded Confirmed Probiotic 1 cap PO DAILY 05/22/18 01/12/22 multivitamin 1 tab PO DAILY 05/22/18 01/12/22 vitamin B complex 1 tab PO DAILY 05/22/18 01/12/22 melatonin 12 mg tablet 12 mg PO .HS 05/25/21 01/12/22 acetaminophen 500 mg tablet 500 mg PO Q6H PRN 07/14/21 01/12/22 (Tylenol Extra Strength) Previous Rx's Medication Instructions Recorded DISABLED PARKING PERMIT #1 ea 02/11/20 donepezil 10 mg tablet See Rx Instructions .Route 06/29/21 .COMPLEX #90 tabs metoprolol succinate 25 mg See Rx Instructions .Route 02/07/22 tablet,extended release 24 hr .COMPLEX #60 tabs finasteride 5 mg tablet See Rx Instructions .Route 03/07/22 .COMPLEX #90 tabs tamsulosin 0.4 mg capsule See Rx Instructions .Route 07/25/22 .COMPLEX #180 caps lisinopril 5 mg tablet See Rx Instructions .Route 08/08/22 .COMPLEX #90 tabs methimazole 5 mg tablet See Rx Instructions .Route 08/08/22 .COMPLEX #90 tabs dabigatran etexilate 150 mg See Rx Instructions .Route 09/12/22 capsule (Pradaxa) .COMPLEX #180 caps Wheelchair #1 ea 09/14/22 cholecalciferol (vitamin D3) 50 See Rx Instructions .Route 12/26/22 mcg (2,000 unit) capsule .COMPLEX #30 caps loratadine-pseudoephedrine ER 10 1 tab PO DAILY #90 tabs 01/03/23 mg-240 mg tablet,extended [id number] (Claritin-D 24 Hour) Allergies Allergy/AdvReac Type Severity Reaction Status Date / Time Sulfa (Sulfonamide Allergy Severe PER PT Verified 01/12/22 14:45 Antibiotics) WHITE [SULFA (SULFONAMIDE BLOOD ANTIBIOTICS)] CELLS ELIMINATE RED BLOOD CELLS codeine [CODEINE] Allergy Mild BAD Verified 01/12/22 14:45 HEADACHES Review of Systems Review of Systems Narrative: GENERAL: Denies chills, fatigue, malaise, fever, sweats. HEENT: Denies sinus pain, ear pain, sore throat, difficulty swallowing, dizziness. RESPIRATORY: Denies dyspnea, cough, wheezing, hemoptysis, sputum. CARDIOVASCULAR: Denies chest pain, palpitations, orthopnea, edema, GASTROINTESTINAL: Denies nausea, vomiting, abdominal pain, diarrhea, constipation, melena. : Denies dysuria, frequency, incontinence, hematuria, urinary retention. MUSCULOSKELETAL: denies weakness, joint pain, or bony pain SKIN: Denies rash, skin lesions, or other NEUROLOGIC: Denies weakness, headache, numbness, change in speech, confusion, seizures, incoordination. PSYCHIATRIC: No concerning psychosocial issues. 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) Parkinsons disease Tendinitis of left rotator cuff Visit for suture removal Weakness Surgical History History of inguinal hernia repair Status post appendectomy Status post tonsillectomy and adenoidectomy Family History Father Lung cancer Mother Alzheimer's disease Social History marital status: household members: spouse Smoking Status: Former smoker alcohol intake: current substance use type: does not use Smoking Status: Former smoker alcohol intake frequency: 0-2 drinks per day Substance Use Type: does not use Exam Narrative Exam Narrative: GEN: AOx3 and in no obvious distress, states he feels fine. Laughing, inter active EYES: Pupils are equal, round, and reactive to light and accommodation. Extraoccular muscles are intact bilaterally. There is no subconjunctival hemorrhage or exudate. CHEST: Lungs are clear to auscultation bilaterally and free of wheezes, rales, or rhonchi. Heart rate is regular rhythm, there are no murmurs, clicks, rubs, or gallops. There is no chest wall tenderness. ABD: Abdomen is soft and nontender. There is no guarding or rebound. Bowel sounds are normal in all 4 quadrants. There is no mass or organomegaly. EXT: Full painless ROM of all extremities with no loss of sensation or strength. SKIN: Warm, pink, and dry. No erythema or rash Initial Vital Signs Initial Vital Signs: Vital Signs Temperature 97.4 F L 01/17/23 08:53 Pulse Rate 61 01/17/23 08:53 Respiratory Rate 20 01/17/23 08:53 Blood Pressure 134/96 H 01/17/23 08:53 Course Orders Ordered: ED Orders 01/17/23 08:54 Chest [XR chest 1V] Stat 01/17/23 09:20 BMP [Basic Metabolic Panel] Stat CBC Auto Diff [Complete Blood Count AUTO DIFF] Stat Vital Signs Vital signs: Vital Signs - 8 hr 01/17/23 08:53 Temperature 97.4 F L Pulse Rate 61 Respiratory Rate 20 Blood Pressure 134/96 H Medical Decision Making Lab Data 01/17/23 09:20 01/17/23 09:20 Labs: Lab Results 01/17/23 01/17/23 Range/Units 09:20 09:20 WBC 10.2 (4.5-11.0) X10^3/uL RBC 4.44 L (4.5-5.9) X10^6/uL Hgb 13.8 (13.5-17.5) g/dL Hct 40.6 L (41-53) % MCV 91.5 (80-100) fL MCH 31.1 (26-34) PG MCHC 33.9 (30-36) % RDW 13.4 (11.6-14.8) % Plt Count 422 H (150-400) X10^3/uL Neut % (Auto) 73.0 (50-75) % Lymph % (Auto) 14.4 L (25-40) % Stearns % (Auto) 8.3 (3-14) % Eos % (Auto) 3.1 (2-4) % Baso % (Auto) 1.2 (0-2) % Neut # (Auto) 7500 H (8211-9018) /uL Lymph # (Auto) 1500 (6680-4230) /uL Stearns # (Auto) 900 (0-900) /uL Eos # (Auto) 300 (0-450) /uL Baso # (Auto) 100 (0-100) /uL Sodium 139 (137-145) mmol/L Potassium 3.8 (3.4-5.1) mmol/L Chloride 102 (98-107) mmol/L Carbon Dioxide 29 (22-32) mmol/L BUN 22 H (9-20) mg/dL Creatinine 0.97 (0.66-1.25) mg/dL Estimated GFR > 60 (>60) mL/min BUN/Creatinine Ratio 22.7 H (6-22) Glucose 88 (80-110) mg/dL Calcium 8.3 L (8.4-10.2) mg/dL [facility] Narrative Medical decision making narrative: [82] year old patient presents with concerns of altered mental status Multiple etiologies for patient's symptoms considered including, but not limited to: [Infectious versus electrolyte abnormality versus other] Prior Charts reviewed in our EMR Primary Historian: patient Labs reviewed and interpreted by myself: No significant abnormalities requiring a specific intervention Imaging reviewed: No acute process Patient's symptoms improved over duration of stay with above-stated therapies. Thankfully no evidence of altered mental status here, family at the bedside stat es that his ability to follow commands and how he is acting is better than the way he appears on some relatively normal days. There is no significant abnormality in his history or physical nor labs that requires a specific intervention. His vital signs are stable and he is appropriate for discharge Findings and discharge diagnosis discussed with patient/family followed by verbalization of understanding Return precautions discussed with patient/family whom verbalize understanding of diagnosis and plan Discharge Plan Departure Patient Disposition: Home Clinical Impression: Urinary tract infection Instructions: DI for Urinary Tract Infection (UTI) Activity Restrictions/Additional Instructions: There is no evidence of an emergent or life threatening illness at this time, but follow up with your doctor in 1-2 days is recommended nonetheless to continue to rule out serious underlying causes of your symptoms. Please call the office for an appointment. Please return to the Emergency Department for any worsening or persistent symptoms. Please take medications as directed. Prescriptions: No Action (DME) DISABLED PARKING PERMIT See Rx Instructions .ROUTE .MEDSUPPLY Qty: 1 0RF Rx Instructions: I find this patient to be medically disabled and qualified for disabled parking as indicated, and signed, on the accompanying Disabled Parking Application for Individuals. acetaminophen [Tylenol Extra Strength] 500 mg tablet 500 mg PO Q6H PRN melatonin 12 mg tablet 12 mg PO .HS donepezil 10 mg tablet See Rx Instructions .ROUTE .COMPLEX Qty: 90 3RF Dose Instruction: take 1 tablet by mouth every evening Rx Instructions: take 1 tablet by mouth every evening metoprolol succinate 25 mg tablet extended release 24 hr See Rx Instructions .ROUTE .COMPLEX Qty: 60 11RF Dose Instruction: take 1 tablet by mouth twice a day Rx Instructions: take 1 tablet by mouth twice a day finasteride 5 mg tablet See Rx Instructions .ROUTE .COMPLEX Qty: 90 3RF Dose Instruction: Take 1 tablet (5 mg) by mouth daily Rx Instructions: Take 1 tablet (5 mg) by mouth daily tamsulosin 0.4 mg capsule See Rx Instructions .ROUTE .COMPLEX Qty: 180 1RF Dose Instruction: Take 1 capsule (0.4 mg) by mouth 2 times daily Rx Instructions: Take 1 capsule (0.4 mg) by mouth 2 times daily lisinopril 5 mg tablet See Rx Instructions .ROUTE .COMPLEX Qty: 90 3RF Dose Instruction: Take 1 tablet (5 mg) by mouth daily Rx Instructions: Take 1 tablet (5 mg) by mouth daily methimazole 5 mg tablet See Rx Instructions .ROUTE .COMPLEX Qty: 90 3RF Dose Instruction: Take 1 tablet (5 mg) by mouth daily Rx Instructions: Take 1 tablet (5 mg) by mouth daily Pradaxa 150 mg capsule See Rx Instructions .ROUTE .COMPLEX Qty: 180 3RF Dose Instruction: Take 1 capsule (150 mg) by mouth 2 times daily Rx Instructions: Take 1 capsule (150 mg) by mouth 2 times daily (DME) Wheelchair See Rx Instructions .Route .MEDSUPPLY Qty: 1 0RF Rx Instructions: Pt wt 165 lbs, ht 71 in cholecalciferol (vitamin D3) 50 mcg (2,000 unit) capsule See Rx Instructions .ROUTE .COMPLEX Qty: 30 11RF Dose Instruction: GIVE 1 CAPSULE BY MOUTH EVERY MORNING FOR VITAMIN/SUPPLEMENT Rx Instructions: GIVE 1 CAPSULE BY MOUTH EVERY MORNING FOR VITAMIN/SUPPLEMENT Claritin-D 24 Hour 10-240 mg tablet extended release 24 hr 1 tab PO DAILY Qty: 90 3RF vitamin B complex Tablet 1 tab PO DAILY Probiotic 1 cap PO DAILY multivitamin 1 tab PO DAILY Referrals: Jose Etienne MD [Primary Care Provider] - Stand Alone Forms: Patient Portal/API
[2023-01-17 09:30] LABS: Add Manual Diff / Slide Review NO; Basophils Absolute Auto 100 /uL (0-100); Basophils Percent Auto 1.2 % (0-2); Eosinophils Absolute Auto 300 /uL (0-450); Eosinophils Percent Auto 3.1 % (2-4); Hematocrit 40.6 % (41-53); Hemoglobin 13.8 g/dL (13.5-17.5); Lymphocytes Absolute Auto 1500 /uL (1100-4500); Lymphocytes Percent Auto 14.4 % (25-40); Mean Corpuscular HGB Conc 33.9 % (30-36); Mean Corpuscular Hemoglobin 31.1 PG (26-34); Mean Corpuscular Volume 91.5 fL (80-100); Monocytes Absolute Auto 900 /uL (0-900); Monocytes Percent Auto 8.3 % (3-14); Neutrophils Absolute Auto 7500 /uL (1500-7000); Platelet Count 422 X10^3/uL (150-400); Red Blood Cell Count 4.44 X10^6/uL (4.5-5.9); Red Cell Distribution Width 13.4 % (11.6-14.8); White Blood Cell Count 10.2 X10^3/uL (4.5-11.0)
[2023-01-17 09:48] LABS: BUN Creatinine Ratio 22.7 (6-22); Blood Urea Nitrogen 22 mg/dL (9-20); Calcium 8.3 mg/dL (8.4-10.2); Carbon Dioxide 29 mmol/L (22-32); Chloride 102 mmol/L (98-107); Estimated Glomerular Filt Rate > 60 mL/min (>60); Glucose 88 mg/dL (80-110); HEMOLYSIS 32 (0-50); Potassium 3.8 mmol/L (3.4-5.1); Sodium 139 mmol/L (137-145)
--- NOTE | 2023-01-17 11:03 | PC.NURSE ---
pt has known UTI, pt is alert, VSS
== END 2023-01-17 11:05 | disposition home or self-care (01) ==
PROVIDERS: Emergency Provider Emergency Medicine; PCP Family Medicine
DX: N39.0 Urinary tract infection, site not specified (principal)
CPT/HCPCS: 71045; 80048; 85025; 99283; 99284

== ENCOUNTER → 2023-02-07 12:59 | Outpatient (CLI) | payer OTHER, SELFPAY ==
[2023-02-07 18:07] LABS: Appearance Urine UA CLOUDY; Bilirubin Urine UA NEGATIVE (NEGATIVE); Color Urine UA YELLOW; Glucose Urine UA NEGATIVE (Negative); Ketones Urine UA NEGATIVE (NEGATIVE); Leukocyte Esterase Urine UA 1+ (NEGATIVE); Nitrite Urine UA POSITIVE (Negative); Occult Blood Urine UA 2+ (Negative); Protein Urine UA 1+ (Negative); Specific Gravity Urine UA 1.015 (1.000-1.035); Urobilinogen Urine UA 0.2 E.U./dL (0.2)
[2023-02-07 18:37] LABS: Bacteria Urine Moderate (10-30); Culture Indicated Urine Specimen Cultured; RBC Urine 0-1/HPF (0-5/HPF); Squamous Epithelial Cell Urine 0-1 /HPF (0-5/HPF); WBC Urine 30-100/HPF (0-5/HPF)
== END ==
PROVIDERS: PCP Family Medicine; Visit Provider Family Medicine
DX: R53.83 Other fatigue (principal)
CPT/HCPCS: 81001; 87077; 87086; 87147; 87186

== ENCOUNTER 2023-02-28 17:03 | Emergency (ER) | payer OTHER, SELFPAY ==
[2023-02-28] VITALS (12 sets, daily range): BP systolic 100–153; BP diastolic 66–91; PULSE 69–127; RESP 10–21; TEMP 36.8; O2SAT 95–99; BMI 23.9
--- NOTE | 2023-02-28 17:15 | PC.NURSE ---
Pt has dementia and is poor historian. Denies chest pain now or prior to EMS call. Denies any pain, discomfort, or other symptoms.
--- NOTE | 2023-02-28 17:15 | DI.RAD.S_ITS ---
PROCEDURE: XR CHEST 1V INDICATIONS: chest pain TECHNIQUE: One view of the chest was acquired. COMPARISON: [facility], CR, XR CHEST 1V, 01/17/2023, 9:13. FINDINGS: Surgical changes and devices: None. Lungs and pleura: Lungs are clear. No pleural effusions or pneumothorax. Mediastinum: Cardiomediastinal contour is stable.. Heart size is normal. Bones and chest wall: No suspicious bony lesions. Severe degenerative changes in both glenohumeral joints. Overlying soft tissues appear unremarkable. IMPRESSION: No acute cardiopulmonary disease. Dictated by: Makenzie Ivy M.D. on 02/28/2023 at 17:39 Approved by: Makenzie Ivy M.D. on 02/28/2023 at 17:40
[2023-02-28 17:47] LABS: Add Manual Diff / Slide Review NO; Basophils Absolute Auto 100 /uL (0-100); Basophils Percent Auto 1.1 % (0-2); Eosinophils Absolute Auto 200 /uL (0-450); Eosinophils Percent Auto 2.9 % (2-4); Hematocrit 38.9 % (41-53); Hemoglobin 13.3 g/dL (13.5-17.5); Lymphocytes Absolute Auto 1100 /uL (1100-4500); Mean Corpuscular HGB Conc 34.3 % (30-36); Mean Corpuscular Volume 90.4 fL (80-100); Monocytes Absolute Auto 800 /uL (0-900); Monocytes Percent Auto 12.1 % (3-14); Neutrophils Absolute Auto 4500 /uL (1500-7000); Neutrophils Percent Auto 66.9 % (50-75); Platelet Count 282 X10^3/uL (150-400); Red Blood Cell Count 4.31 X10^6/uL (4.5-5.9); Red Cell Distribution Width 13.6 % (11.6-14.8); White Blood Cell Count 6.7 X10^3/uL (4.5-11.0)
--- NOTE | 2023-02-28 17:56 | PC.NURSE ---
at bedside. Reports pt recently had UTI, took antibiotics for 2 weeks until a week ago.
[2023-02-28 18:01] LABS: Alanine Aminotransferase 19 IU/L (<50); Albumin 3.9 g/dL (3.5-5.0); Albumin Globulin Ratio 1.2 (1.0-2.8); Alkaline Phosphatase 59 U/L (38-126); Aspartate Aminotransferase 34 IU/L (17-59); BUN Creatinine Ratio 19.8 (6-22); Bilirubin Total 0.5 mg/dL (0.2-1.3); Blood Urea Nitrogen 23 mg/dL (9-20); Calcium 8.5 mg/dL (8.4-10.2); Carbon Dioxide 28 mmol/L (22-32); Chloride 106 mmol/L (98-107); Creatine Kinase 35 U/L (55-170); Estimated Glomerular Filt Rate > 60 mL/min (>60); Globulin 3.3 g/dL (1.7-4.1); Glucose 104 mg/dL (80-110); Lipase 110 U/L (23-300); Potassium 4.6 mmol/L (3.4-5.1); Sodium 137 mmol/L (137-145); Total Protein 7.2 g/dL (6.3-8.2)
[2023-02-28 18:02] LABS: HEMOLYSIS 85 (0-50)
[2023-02-28 18:11] LABS: Troponin I 0.021 ng/mL (0.01-0.034)
--- NOTE | 2023-02-28 18:17 | ED.CHESTPAIN ---
HPI - Chest Pain General Chief Complaint: Chest Pain Stated Complaint: Left chest/arm pain Time Seen by Provider: 02/28/23 18:08 Source: EMS Mode of arrival: EMS History of Present Illness HPI narrative: 82-year-old gentleman with a history of paroxysmal AFib anticoagulated on Pradaxa, dementia, hypertension hyperlipidemia currently in a dementia facility presents via EMS with concerns for chest pain and initial blood pressure of 80 systolic. Was given a 200 cc bolus of fluid with blood pressure in the 130 range systolic on arrival in the emergency department. Initial exam is supplemented by his due to his memory issues. She notes that he frequently complains of chest pain that is typically more his chronic back pain. He has not had vomiting or diarrhea, no fevers or behavioral changes according to his . Related Data Home Medications Medication Instructions Recorded Confirmed Probiotic 1 cap PO DAILY 05/22/18 01/12/22 multivitamin 1 tab PO DAILY 05/22/18 01/12/22 vitamin B complex 1 tab PO DAILY 05/22/18 01/12/22 melatonin 12 mg tablet 12 mg PO .HS 05/25/21 01/12/22 acetaminophen 500 mg tablet 500 mg PO Q6H PRN 07/14/21 01/12/22 (Tylenol Extra Strength) Previous Rx's Medication Instructions Recorded DISABLED PARKING PERMIT #1 ea 02/11/20 metoprolol succinate 25 mg See Rx Instructions .Route 02/07/22 tablet,extended release 24 hr .COMPLEX #60 tabs finasteride 5 mg tablet See Rx Instructions .Route 03/07/22 .COMPLEX #90 tabs tamsulosin 0.4 mg capsule See Rx Instructions .Route 07/25/22 .COMPLEX #180 caps lisinopril 5 mg tablet See Rx Instructions .Route 08/08/22 .COMPLEX #90 tabs methimazole 5 mg tablet See Rx Instructions .Route 08/08/22 .COMPLEX #90 tabs dabigatran etexilate 150 mg See Rx Instructions .Route 09/12/22 capsule (Pradaxa) .COMPLEX #180 caps Wheelchair #1 ea 09/14/22 cholecalciferol (vitamin D3) 50 See Rx Instructions .Route 12/26/22 mcg (2,000 unit) capsule .COMPLEX #30 caps loratadine-pseudoephedrine ER 10 1 tab PO DAILY #90 tabs 01/03/23 mg-240 mg tablet,extended [id number] (Claritin-D 24 Hour) rivastigmine 9.5 mg/24 hour 9.5 mg transdermal DAILY #30 ea 02/22/23 transdermal patch Allergies Allergy/AdvReac Type Severity Reaction Status Date / Time Sulfa (Sulfonamide Allergy Severe PER PT Verified 01/12/22 14:45 Antibiotics) WHITE [SULFA (SULFONAMIDE BLOOD ANTIBIOTICS)] CELLS ELIMINATE RED BLOOD CELLS codeine [CODEINE] Allergy Mild BAD Verified 01/12/22 14:45 HEADACHES Review of Systems Review of Systems Narrative: Pertinent positive and negative findings as per HPI Patient History Medical History (Updated 02/28/23 @ 19:47 by Mela Dc MD) Abrasion of multiple sites of hand and finger Atrial fibrillation BPH (benign prostatic hyperplasia) Dementia Low back pain Multiple falls Neurodegenerative cognitive impairment (04/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) Parkinsons disease Tendinitis of left rotator cuff Surgical History History of inguinal hernia repair Status post appendectomy Status post tonsillectomy and adenoidectomy Family History Father Lung cancer Mother Alzheimer's disease Social History marital status: household members: spouse Smoking Status: Former smoker alcohol intake: current substance use type: does not use Smoking Status: Former smoker alcohol intake frequency: 0-2 drinks per day Substance Use Type: does not use Exam Initial Vital Signs Initial Vital Signs: Vital Signs Temperature 98.3 F 02/28/23 17:08 Pulse Rate 124 H 02/28/23 17:08 Respiratory Rate 12 02/28/23 17:08 Blood Pressure 131/83 02/28/23 17:08 Pulse Oximetry 96 02/28/23 17:08 Oxygen Delivery Method Room Air 02/28/23 17:08 General: Older-appearing gentleman in no acute distress. Able to answer direct questions HEENT: Moist mucous membranes, normal sclera with reactive pupils, Neck: No JVD, supple Respiratory: Lungs are clear to auscultation, no wheezing no rales no rhonchi. Full and symmetrical air movement Cardiac: Rapid rate but no murmurs appreciated Abdomen: Soft, nontender, good bowel tones, no flank pain Skin: Warm and dry, no rashes Neurologic: He is moving all extremities, mild rigidity overall, no localizing deficits Extremities: No trauma, well perfused, 1+ bilateral lower extremity Psych: Cooperative, cognitive deficits at baseline Course Orders Ordered: ED Orders 02/28/23 17:15 XR chest 1V Stat 02/28/23 17:17 EKG-12 Lead Stat 02/28/23 17:25 Complete Blood Count AUTO DIFF Stat Comprehensive Metabolic Panel Stat Lipase Stat Troponin & CK Cardiac Panel Stat Discontinued Medications Metoprolol Tartrate (Metoprolol Ir 25 Mg Tablet) 25 mg PO NOW ONE Stop: 02/28/23 18:41 Last Admin: 02/28/23 18:56 Dose: 25 mg Documented By: AMV Vital Signs Vital signs: Vital Signs - 8 hr 02/28/23 17:08 02/28/23 17:11 02/28/23 17:18 Temperature 98.3 F Pulse Rate 124 H 122 H 123 H Respiratory Rate 12 10 L 18 Blood Pressure 131/83 Pulse Oximetry 96 96 96 Oxygen Delivery Method Room Air 02/28/23 17:18 02/28/23 17:19 02/28/23 17:19 Temperature Pulse Rate 125 H Respiratory Rate 16 Blood Pressure 126/68 109/66 Pulse Oximetry 95 Oxygen Delivery Method 02/28/23 17:30 02/28/23 17:30 02/28/23 17:45 Temperature Pulse Rate 127 H Respiratory Rate 21 Blood Pressure 106/74 119/83 Pulse Oximetry 96 Oxygen Delivery Method 02/28/23 17:45 02/28/23 17:59 02/28/23 17:59 Temperature Pulse Rate 123 H 89 Respiratory Rate 17 18 Blood Pressure 153/91 H Pulse Oximetry 96 97 Oxygen Delivery Method 02/28/23 18:00 02/28/23 18:01 02/28/23 18:01 Temperature Pulse Rate 121 H 124 H Respiratory Rate 16 15 Blood Pressure 104/67 Pulse Oximetry 97 96 Oxygen Delivery Method 02/28/23 18:30 02/28/23 18:30 02/28/23 19:00 Temperature Pulse Rate 69 Respiratory Rate 15 Blood Pressure 148/79 H 115/82 Pulse Oximetry 97 Oxygen Delivery Method 02/28/23 19:00 02/28/23 19:30 02/28/23 19:30 Temperature Pulse Rate 124 H 120 H Respiratory Rate 21 14 Blood Pressure 100/72 Pulse Oximetry 99 97 Oxygen Delivery Method MDM - Chest Pain Lab Data 02/28/23 17:25 02/28/23 17:25 Labs: Lab Results 02/28/23 02/28/23 Range/Units 17:25 17:25 WBC 6.7 (4.5-11.0) X10^3/uL RBC 4.31 L (4.5-5.9) X10^6/uL Hgb 13.3 L (13.5-17.5) g/dL Hct 38.9 L (41-53) % MCV 90.4 (80-100) fL MCH 31.0 (26-34) PG MCHC 34.3 (30-36) % RDW 13.6 (11.6-14.8) % Plt Count 282 (150-400) X10^3/uL Neut % (Auto) 66.9 (50-75) % Lymph % (Auto) 17.0 L (25-40) % Coffey % (Auto) 12.1 (3-14) % Eos % (Auto) 2.9 (2-4) % Baso % (Auto) 1.1 (0-2) % Neut # (Auto) 4500 (4193-1132) /uL Lymph # (Auto) 1100 (6750-3290) /uL Coffey # (Auto) 800 (0-900) /uL Eos # (Auto) 200 (0-450) /uL Baso # (Auto) 100 (0-100) /uL Sodium 137 (137-145) mmol/L Potassium 4.6 (3.4-5.1) mmol/L Chloride 106 (98-107) mmol/L Carbon Dioxide 28 (22-32) mmol/L BUN 23 H (9-20) mg/dL Creatinine 1.16 (0.66-1.25) mg/dL Estimated GFR > 60 (>60) mL/min BUN/Creatinine Ratio 19.8 (6-22) Glucose 104 (80-110) mg/dL Calcium 8.5 (8.4-10.2) mg/dL Total Bilirubin 0.5 (0.2-1.3) mg/dL AST 34 (17-59) IU/L ALT 19 (<50) IU/L Alkaline Phosphatase 59 (38-126) U/L Total Creatine Kinase 35 L (55-170) U/L Troponin I 0.021 (0.01-0.034) ng/mL Total Protein 7.2 (6.3-8.2) g/dL Albumin 3.9 (3.5-5.0) g/dL Globulin 3.3 (1.7-4.1) g/dL Albumin/Globulin Ratio 1.2 (1.0-2.8) Lipase 110 (23-300) U/L MDM Narrative Medical decision making narrative: CC: Chest pain, hypotension this is an acute process uncertain prognosis Complicating co-morbidities: Dementia, hypertension, hyperlipidemia, chronic atrial fibrillation anticoagulated Data collected from: patient, spouse, EMS Social determinants of health that may influence the patients condition: Dementia, living in a dementia facility Medical records reviewed: Prior ER notes and discharge summary from April of 2018 Differential considered: Acute coronary syndrome, paroxysmal AFib, congestive heart failure, chronic back pain, GI complaint Exam documented above, pertinent findings include: Benign exam aside for his rapid rhythm Lab Test results independently reviewed as above. Pertinent findings: CBC is unremarkable mild anemia at 13.3 and 38.9 Chemistries are reassuring. Troponin is undetected Lipase is within normal limits Patient was diagnosed with a staph aureus urinary tract infection on February 07 that was essentially pansensitive treated as an outpatient with ciprofloxacin Independently reviewed EKG patient is in atrial fibrillation with a right bundle branch block rate at [address] T wave changes are appreciated Imaging studies independently reviewed: Chest x-ray is unremarkable Code status discussion: and I had a long discussion regarding his code status. She had currently has a pulsed form that says full code but was not aware that there were middle of the road options. She very much would not want him to have CPR be intubated but does want him to have complete treatment up to that point. We filled out a new POLST form indicating DNR with limited additional interventions. The original form is sent with her to give back to [facility] facility she is given a copy and a copy is kept for our chart today Treatments: Oral metoprolol Re-evaluations: On initial evaluation his EKG on presentation shows AFib with a rapid ventricular response wide complex with right bundle branch block. When I walked into the room at 6:30 p.m. he spontaneously converted to atrial fibrillation which lasted approximately 10 minutes and then he converted to a narrow complex atrial fibrillation. EKGs reordered. Throughout his ER stay he has not had any chest pain does continue to complain of pain but when it is localized it clearly is his chronic back pain. He is quite comfortable, able to answer some direct questions and is cooperative but clearly with progressive dementia. Discussion: 82-year-old gentleman with a history of paroxysmal atrial fibrillation anticoagulated on metoprolol 25 mg extended release comes in with complaint of chest pain that likely is more back pain but Mattson difficult to determine secondary to his cognitive deficits. He is in flutter 2-1 on arrival initial blood pressure had been slightly low however is otherwise stable and responded nicely to small bolus fluid. During our discussion he clearly fell back into sinus rhythm with easily identified P waves for approximately 10 minutes and then returned to the 2-1 flutter. At this point he is no longer complaining of chest pain, cardiac workup is unremarkable, no signs of congestive heart failure and is requesting discharge. We discussed the paroxysmal atrial fibrillation, the fact that he is at 125 that tolerating this well. He is given an additional dose of oral metoprolol immediate release in the emergency department. As he is tolerating this rapid rhythm and is having intermittent episodes of sinus rhythm. With shared decision-making we opted to not proceed with additional workup, hospitalization and to help her transport him home. We will not recommend any changes to current medications Discharge Plan Departure Patient Disposition: Home Clinical Impression: Atrial flutter Qualifiers: Atrial flutter type: typical Qualified Code(s): I48.3 - Typical atrial flutter Dementia Qualifiers: Dementia type: unspecified type Dementia severity: severe Dementia behavioral or psychological symptom: without behavioral, psychotic, or mood disturbance or anxiety Qualified Code(s): F03.C0 - Unspecified dementia, severe, without behavioral disturbance, psychotic disturbance, mood disturbance, and anxiety Instructions: DI for Atrial Flutter Activity Restrictions/Additional Instructions: Thank you for coming in today Kenny had an episode of atrial flutter. His workup for heart attack or acute coronary syndrome, infection and evidence of congestive heart failure was reassuring. In the emergency department he had episodes of atrial fibrillation lasting anywhere from 10-20 minutes and then converted back into his atrial flutter. Does not seem to be having any difficulty tolerating the rate in the 120 range. At this point he is appropriately treated with the extended release metoprolol and the Pradaxa. I am not going to suggest any medication changes. He was given a single dose of oral short-acting metoprolol this evening in the emergency department. Reasons to return to the emergency department include rates that are in the 140 or higher range, shortness of breath, increasing cough, increasing lower extremity edema and difficulty in lying flat because of his shortness of breath. We did discuss end of life issues and have filled out a new POLST form. Please keep a copy for yourself, given the green form to [facility]. I have kept a copy for his chart. The form indicates that he would not want CPR intubation but we would do full treatment up to that point. If you find that you are getting worse or develop any new symptoms, please feel free to return to the emergency department for further evaluation. Prescriptions: No Action (DME) DISABLED PARKING PERMIT See Rx Instructions .ROUTE .MEDSUPPLY Qty: 1 0RF Rx Instructions: I find this patient to be medically disabled and qualified for disabled parking as indicated, and signed, on the accompanying Disabled Parking Application for Individuals. acetaminophen [Tylenol Extra Strength] 500 mg tablet 500 mg PO Q6H PRN melatonin 12 mg tablet 12 mg PO .HS metoprolol succinate 25 mg tablet extended release 24 hr See Rx Instructions .ROUTE .COMPLEX Qty: 60 11RF Dose Instruction: take 1 tablet by mouth twice a day Rx Instructions: take 1 tablet by mouth twice a day finasteride 5 mg tablet See Rx Instructions .ROUTE .COMPLEX Qty: 90 3RF Dose Instruction: Take 1 tablet (5 mg) by mouth daily Rx Instructions: Take 1 tablet (5 mg) by mouth daily tamsulosin 0.4 mg capsule See Rx Instructions .ROUTE .COMPLEX Qty: 180 1RF Dose Instruction: Take 1 capsule (0.4 mg) by mouth 2 times daily Rx Instructions: Take 1 capsule (0.4 mg) by mouth 2 times daily lisinopril 5 mg tablet See Rx Instructions .ROUTE .COMPLEX Qty: 90 3RF Dose Instruction: Take 1 tablet (5 mg) by mouth daily Rx Instructions: Take 1 tablet (5 mg) by mouth daily methimazole 5 mg tablet See Rx Instructions .ROUTE .COMPLEX Qty: 90 3RF Dose Instruction: Take 1 tablet (5 mg) by mouth daily Rx Instructions: Take 1 tablet (5 mg) by mouth daily Pradaxa 150 mg capsule See Rx Instructions .ROUTE .COMPLEX Qty: 180 3RF Dose Instruction: Take 1 capsule (150 mg) by mouth 2 times daily Rx Instructions: Take 1 capsule (150 mg) by mouth 2 times daily (DME) Wheelchair See Rx Instructions .Route .MEDSUPPLY Qty: 1 0RF Rx Instructions: Pt wt 165 lbs, ht 71 in cholecalciferol (vitamin D3) 50 mcg (2,000 unit) capsule See Rx Instructions .ROUTE .COMPLEX Qty: 30 11RF Dose Instruction: GIVE 1 CAPSULE BY MOUTH EVERY MORNING FOR VITAMIN/SUPPLEMENT Rx Instructions: GIVE 1 CAPSULE BY MOUTH EVERY MORNING FOR VITAMIN/SUPPLEMENT Claritin-D 24 Hour 10-240 mg tablet extended release 24 hr 1 tab PO DAILY Qty: 90 3RF rivastigmine 9.5 mg/24 hour patch 24 hour 9.5 mg transdermal DAILY Qty: 30 3RF vitamin B complex Tablet 1 tab PO DAILY Probiotic 1 cap PO DAILY multivitamin 1 tab PO DAILY Referrals: Jose Etienne MD [Primary Care Provider] - Stand Alone Forms: Patient Portal/API
[2023-02-28] MEDS: METOPROLOL IR 25 MG TABLET PO (18:56)
--- NOTE | 2023-02-28 20:15 | PC.NURSE ---
JAYDEN Maurice at [facility] given report. Also gave completed POLST form to to give to [facility]
== END 2023-02-28 20:00 | disposition home or self-care (01) ==
PROVIDERS: Emergency Medicine; Emergency Provider Emergency Medicine; PCP Family Medicine
DX: I48.3 Typical atrial flutter (principal); F03.C0 Unspecified dementia, severe, without behavioral disturbance, psychotic disturbance, mood disturbance, and anxiety; R07.9 Chest pain, unspecified; Z79.899 Other long term (current) drug therapy
CPT/HCPCS: 36415; 71045; 80053; 82550; 83690; 84484; 85025; 93005; 93010; 99284

== ENCOUNTER → 2023-05-30 15:44 | Outpatient (ROUT) | payer OTHER, SELFPAY ==
[2023-05-30 15:58] LABS: Appearance Urine UA CLOUDY; Bilirubin Urine UA NEGATIVE (NEGATIVE); Color Urine UA YELLOW; Glucose Urine UA NEGATIVE (Negative); Ketones Urine UA NEGATIVE (NEGATIVE); Leukocyte Esterase Urine UA 2+ (NEGATIVE); Nitrite Urine UA NEGATIVE (Negative); Occult Blood Urine UA TRACE-INTACT (Negative); Protein Urine UA 1+ (Negative); Urobilinogen Urine UA 0.2 E.U./dL (0.2)
[2023-05-30 16:14] LABS: Bacteria Urine Moderate (10-30); RBC Urine 1-5/HPF (0-5/HPF); Squamous Epithelial Cell Urine 1-5 /HPF (0-5/HPF); WBC Urine >100/HPF (0-5/HPF)
[2023-05-30 16:15] LABS: Culture Indicated Urine Specimen Cultured
== END ==
PROVIDERS: PCP Family Medicine; Visit Provider Family Medicine
DX: R31.9 Hematuria, unspecified (principal)
CPT/HCPCS: 81001; 87077; 87086

== ENCOUNTER → 2023-06-13 15:41 | Outpatient (CLI) | payer OTHER, SELFPAY ==
[2023-06-13 21:53] LABS: Influenza A - CEPHEID Flu A NEGATIVE (NEGATIVE); Influenza B - CEPHEID Flu B NEGATIVE (NEGATIVE); Respiratory Syncytial Virus Negative (Negative)
[2023-06-13 22:11] LABS: COVID-19 CEPHEID 4-PLEX PCR Negative (Negative)
== END ==
PROVIDERS: PCP Family Medicine; Visit Provider Family Medicine
DX: R05.9 Cough, unspecified (principal); J02.9 Acute pharyngitis, unspecified
CPT/HCPCS: 0241U; 87651

== ENCOUNTER 2023-07-17 23:21 | Emergency (ER) | payer OTHER, SELFPAY ==
[2023-07-17 23:38] VITALS: BMI 23.3
--- NOTE | 2023-07-17 23:54 | PC.NURSE ---
Patient states it is OK for us to take his vital signs. Vital signs taken.
[2023-07-17 23:55] VITALS: BP 193/120; PULSE 86; RESP 18; O2SAT 97
--- NOTE | 2023-07-17 23:56 | PC.NURSE ---
Per provider Kosta Ativan and Haldol have been ordered but not to be given unless his behavior changes and provider notified. Patient is calm and laying in bed at this time talking with emission technicianjulian Murray.
--- NOTE | 2023-07-18 00:32 | PC.NURSE ---
INTERNAL CONTROL MANAGER NOTE: PT is calm and alert to self. He allowed staff to provide care with out difficulties. Pt will call out hello if he needs something, Staff continue visual checks, call light is in reach.
[2023-07-18 00:43] VITALS: BP 179/92; PULSE 81; O2SAT 97
--- NOTE | 2023-07-18 00:56 | ED_ITS ---
HPI - Psych General Chief Complaint: Psychiatric Symptoms Stated Complaint: behavioral disturbances- lighthouse Time Seen by Provider: 07/17/23 23:39 Source: patient, EMS and other Mode of arrival: EMS History of Present Illness HPI Narrative: Patient is brought to the emergency department by EMS because of agitation and hostile behavior at the [facility] where he lives. Paramedics were able to control the situation by just talking to the patient and using some soft restraints briefly. The patient himself reports no symptoms at all and wonders why he is here in the emergency department. His history is remarkable for atr ial fibrillation dementia and hypertension. Nursing staff at the home where he lives reports 1 episode of vomiting earlier today which is not terribly uncommon by their report. half-way staff and EMS are independent historians. Related Data Home Medications Medication Instructions Recorded Confirmed Probiotic 1 cap PO DAILY 05/22/18 06/13/23 multivitamin 1 tab PO DAILY 05/22/18 06/13/23 vitamin B complex 1 tab PO DAILY 05/22/18 06/13/23 melatonin 12 mg tablet 12 mg PO .HS 05/25/21 06/13/23 acetaminophen 500 mg tablet 500 mg PO Q6H PRN 07/14/21 06/13/23 (Tylenol Extra Strength) Previous Rx's Medication Instructions Recorded DISABLED PARKING PERMIT #1 ea 02/11/20 metoprolol succinate 25 mg See Rx Instructions .Route 02/07/22 tablet,extended release 24 hr .COMPLEX #60 tabs finasteride 5 mg tablet See Rx Instructions .Route 03/07/22 .COMPLEX #90 tabs tamsulosin 0.4 mg capsule See Rx Instructions .Route 07/25/22 .COMPLEX #180 caps lisinopril 5 mg tablet See Rx Instructions .Route 08/08/22 .COMPLEX #90 tabs methimazole 5 mg tablet See Rx Instructions .Route 08/08/22 .COMPLEX #90 tabs dabigatran etexilate 150 mg See Rx Instructions .Route 09/12/22 capsule (Pradaxa) .COMPLEX #180 caps Wheelchair #1 ea 09/14/22 cholecalciferol (vitamin D3) 50 See Rx Instructions .Route 12/26/22 mcg (2,000 unit) capsule .COMPLEX #30 caps loratadine-pseudoephedrine ER 10 1 tab PO DAILY #90 tabs 01/03/23 mg-240 mg tablet,extended [id number] (Claritin-D 24 Hour) mirtazapine 15 mg tablet 15 mg PO BEDTIME #30 tabs 04/05/23 rivastigmine 9.5 mg/24 hour 9.5 mg transdermal DAILY #30 ea 05/17/23 transdermal patch nitrofurantoin macrocrystal 100 mg 100 mg PO BID #14 caps 05/31/23 capsule Allergies Allergy/AdvReac Type Severity Reaction Status Date / Time Sulfa (Sulfonamide Allergy Severe PER PT Verified 06/13/23 15:56 Antibiotics) WHITE [SULFA (SULFONAMIDE BLOOD ANTIBIOTICS)] CELLS ELIMINATE RED BLOOD CELLS codeine [CODEINE] Allergy Mild BAD Verified 06/13/23 15:56 HEADACHES Patient History Medical History (Updated 07/18/23 @ 01:02 by Fritz Brambila MD) Low back pain Tendinitis of left rotator cuff Parkinsons disease Dementia Atrial fibrillation Multiple falls BPH (benign prostatic hyperplasia) Neurodegenerative cognitive impairment (04/18/17) Abrasion of multiple sites of hand and finger Surgical History History of inguinal hernia repair Status post appendectomy Status post tonsillectomy and adenoidectomy Family History Father Lung cancer Mother Alzheimer's disease Social History marital status: household members: spouse Smoking Status: Former smoker alcohol intake: current substance use type: does not use Smoking Status: Former smoker alcohol intake frequency: 0-2 drinks per day Substance Use Type: does not use Exam Narrative Exam Narrative: GENERAL: Alert, cooperative and in no distress. HEAD: Atraumatic. Normocephalic. EYES: Sclera are clear without icterus. Extraocular movements are full. ENT: No rhinorrhea. NECK: Supple. Full range of motion. CARDIOVASCULAR: Normal rate and rhythm without murmur gallop or rub. RESPIRATORY: Clear to auscultation. Breath sounds equal bilaterally. No wheezes, rales, or rhonchi. GASTROINTESTINAL: Abdomen soft, non-tender, nondistended. EXTREMITIES: No edema, full range of motion. No obvious trauma. BACK: Normal inspection, no CVA tenderness. NEURO: Nonfocal examination, normal speech SKIN: No rash or erythema of visible areas PSYCH: Oriented to self only. Normal range of affect. Appropriate behavior, though he does require frequent redirection. No aggressive behavior toward us in the emergency department throughout his ED stay. Initial Vital Signs Initial Vital Signs: Vital Signs Pulse Rate 86 07/17/23 23:55 Respiratory Rate 18 07/17/23 23:55 Blood Pressure 193/120 H 07/17/23 23:55 Pulse Oximetry 97 07/17/23 23:55 Oxygen Delivery Method Room Air 07/17/23 23:55 Course Orders Ordered: Discontinued Medications Haloperidol (Haloperidol 5 Mg Tablet) 5 mg PO NOW ONE Stop: 07/17/23 23:41 Haloperidol (Haloperidol 5 Mg/Ml Vial) 5 mg IM NOW ONE Stop: 07/17/23 23:41 Lorazepam (Lorazepam 0.5 Mg Tablet) 1 mg PO NOW ONE Stop: 07/17/23 23:41 Lorazepam (Lorazepam 2 Mg/Ml Inj) 1 mg IM NOW ONE Stop: 07/17/23 23:41 Ondansetron HCl (Ondansetron 4 Mg Odt Prepack) 1 bottle MISC DIRECTED ONE Stop: 07/18/23 00:56 Vital Signs Vital signs: Vital Signs - 8 hr 07/17/23 23:55 07/18/23 00:43 Pulse Rate 86 81 Respiratory Rate 18 Blood Pressure 193/120 H 179/92 H Pulse Oximetry 97 97 Oxygen Delivery Method Room Air Room Air MDM - Psych MDM Narrative Medical decision making narrative: Patient is well-appearing with no obvious trauma. His exam is benign. He is cooperative with us though he does require frequent redirection. No medications were administered. It seems appropriate to send him back to the care facility where he lives. We will call his and let her know that we think it is safe to let him go back. Discharge Plan Departure Patient Disposition: Home Clinical Impression: Acute situational disturbance, Agitation Activity Restrictions/Additional Instructions: Normal vital signs and normal physical examination. We are able to help Kenny feel calm and interactive by just verbal interaction and reassurance. He required no restraints chemical or otherwise while here in the emergency department. We have provided you with 1 lorazepam tablet 1 mg and 1 Haldol tablet 5 mg. It is safe and reasonable to administer these medications if needed for agitation tonight. For further orders regarding agitation management I recommend contacting primary care provider for further prescriptions. Prescriptions: No Action (DME) DISABLED PARKING PERMIT See Rx Instructions .ROUTE .MEDSUPPLY Qty: 1 0RF Rx Instructions: I find this patient to be medically disabled and qualified for disabled parking as indicated, and signed, on the accompanying Disabled Parking Application for Individuals. acetaminophen [Tylenol Extra Strength] 500 mg tablet 500 mg PO Q6H PRN melatonin 12 mg tablet 12 mg PO .HS metoprolol succinate 25 mg tablet extended release 24 hr See Rx Instructions .ROUTE .COMPLEX Qty: 60 11RF Dose Instruction: take 1 tablet by mouth twice a day Rx Instructions: take 1 tablet by mouth twice a day finasteride 5 mg tablet See Rx Instructions .ROUTE .COMPLEX Qty: 90 3RF Dose Instruction: Take 1 tablet (5 mg) by mouth daily Rx Instructions: Take 1 tablet (5 mg) by mouth daily tamsulosin 0.4 mg capsule See Rx Instructions .ROUTE .COMPLEX Qty: 180 1RF Dose Instruction: Take 1 capsule (0.4 mg) by mouth 2 times daily Rx Instructions: Take 1 capsule (0.4 mg) by mouth 2 times daily lisinopril 5 mg tablet See Rx Instructions .ROUTE .COMPLEX Qty: 90 3RF Dose Instruction: Take 1 tablet (5 mg) by mouth daily Rx Instructions: Take 1 tablet (5 mg) by mouth daily methimazole 5 mg tablet See Rx Instructions .ROUTE .COMPLEX Qty: 90 3RF Dose Instruction: Take 1 tablet (5 mg) by mouth daily Rx Instructions: Take 1 tablet (5 mg) by mouth daily Pradaxa 150 mg capsule See Rx Instructions .ROUTE .COMPLEX Qty: 180 3RF Dose Instruction: Take 1 capsule (150 mg) by mouth 2 times daily Rx Instructions: Take 1 capsule (150 mg) by mouth 2 times daily (DME) Wheelchair See Rx Instructions .Route .MEDSUPPLY Qty: 1 0RF Rx Instructions: Pt wt 165 lbs, ht 71 in cholecalciferol (vitamin D3) 50 mcg (2,000 unit) capsule See Rx Instructions .ROUTE .COMPLEX Qty: 30 11RF Dose Instruction: GIVE 1 CAPSULE BY MOUTH EVERY MORNING FOR VITAMIN/SUPPLEMENT Rx Instructions: GIVE 1 CAPSULE BY MOUTH EVERY MORNING FOR VITAMIN/SUPPLEMENT Claritin-D 24 Hour 10-240 mg tablet extended release 24 hr 1 tab PO DAILY Qty: 90 3RF mirtazapine 15 mg tablet 15 mg PO BEDTIME Qty: 30 11RF rivastigmine 9.5 mg/24 hour patch 24 hour 9.5 mg transdermal DAILY Qty: 30 3RF nitrofurantoin macrocrystal 100 mg capsule 100 mg PO BID Qty: 14 0RF Rx Instructions: must administer with a meal/food vitamin B complex Tablet 1 tab PO DAILY Probiotic 1 cap PO DAILY multivitamin 1 tab PO DAILY Referrals: Jose Etienne MD [Primary Care Provider] - Stand Alone Forms: Patient Portal/API
--- NOTE | 2023-07-18 01:05 | PC.NURSE ---
Spoke with patient's on phone and made aware of patient situation and plan. states she will call PCP first thing tomorrow morning for a follow up appointment.
[2023-07-18] MEDS: ONDANSETRON 4 MG ODT PREPACK 1 BOTTLE MISC (01:07)
[2023-07-18] MEDS: LORazepam 0.5 MG TABLET 1 MG PO (01:07)
[2023-07-18] MEDS: haloperidoL 5 MG TABLET PO (01:09)
== END 2023-07-18 01:38 | disposition home or self-care (01) ==
PROVIDERS: Emergency Provider Family Medicine Addiction Medicine; PCP Family Medicine
DX: F43.0 Acute stress reaction (principal); R45.1 Restlessness and agitation
CPT/HCPCS: 99283

== ENCOUNTER → 2023-10-25 14:11 | Outpatient (CLI) | payer OTHER, SELFPAY ==
--- NOTE | 2023-10-25 14:18 | DI.RAD.S_ITS ---
PROCEDURE: XR CHEST 2V INDICATIONS: Persistent cough/ Congestion TECHNIQUE: 2 views of the chest were acquired. COMPARISON: [facility], [place], XR CHEST 1V, 02/28/2023, 17:13. FINDINGS: Surgical changes and devices: None. Lungs and pleura: Chronic interstitial prominence. No pleural effusions or pneumothorax. Mediastinum: Mediastinal contours are normal. Heart size is normal. Bones and chest wall: Severe glenohumeral joint degeneration bilaterally. No suspicious bony abnormalities. Soft tissues appear unremarkable. IMPRESSION: No acute cardiopulmonary abnormality is seen. Dictated by: Andre Lakhani M.D. on 10/26/2023 at 8:27 Approved by: Andre Lakhani M.D. on 10/26/2023 at 8:27
[2023-10-25 17:10] LABS: Add Manual Diff / Slide Review NO; Basophils Absolute Auto 100 /uL (0-100); Basophils Percent Auto 0.7 % (0-2); Eosinophils Absolute Auto 300 /uL (0-450); Eosinophils Percent Auto 2.9 % (2-4); Hematocrit 39.9 % (41-53); Hemoglobin 13.3 g/dL (13.5-17.5); Lymphocytes Absolute Auto 800 /uL (1100-4500); Lymphocytes Percent Auto 9.6 % (25-40); Mean Corpuscular HGB Conc 33.4 % (30-36); Mean Corpuscular Hemoglobin 30.8 PG (26-34); Mean Corpuscular Volume 92.2 fL (80-100); Monocytes Absolute Auto 600 /uL (0-900); Monocytes Percent Auto 7.2 % (3-14); Neutrophils Absolute Auto 6900 /uL (1500-7000); Neutrophils Percent Auto 79.6 % (50-75); Platelet Count 383 X10^3/uL (150-400); Red Blood Cell Count 4.33 X10^6/uL (4.5-5.9); Red Cell Distribution Width 13.6 % (11.6-14.8); White Blood Cell Count 8.7 X10^3/uL (4.5-11.0)
[2023-10-25 19:29] LABS: TSH w/ Reflex to FT4 2.52 uIU/mL (0.47-4.68)
[2023-10-25 20:04] LABS: Alanine Aminotransferase 21 IU/L (<50); Albumin 3.7 g/dL (3.5-5.0); Albumin Globulin Ratio 1.1 (1.0-2.8); Alkaline Phosphatase 72 U/L (38-126); Aspartate Aminotransferase 28 IU/L (17-59); BUN Creatinine Ratio 20.2 (6-22); Bilirubin Total 0.4 mg/dL (0.2-1.3); Blood Urea Nitrogen 18 mg/dL (9-20); Carbon Dioxide 30 mmol/L (22-32); Chloride 105 mmol/L (98-107); Estimated Glomerular Filt Rate > 60 mL/min (>60); Globulin 3.3 g/dL (1.7-4.1); Glucose 105 mg/dL (80-110); HEMOLYSIS < 15 (0-50); Potassium 3.9 mmol/L (3.4-5.1); Sodium 138 mmol/L (137-145)
== END ==
PROVIDERS: PCP Family Medicine; Referring Provider Family Medicine; Visit Provider Family Medicine
DX: R05.3 Chronic cough (principal); I48.91 Unspecified atrial fibrillation; N40.0 Benign prostatic hyperplasia without lower urinary tract symptoms; M48.50XA Collapsed vertebra, not elsewhere classified, site unspecified, initial encounter for fracture; F03.90 Unspecified dementia, unspecified severity, without behavioral disturbance, psychotic disturbance, mood disturbance, and anxiety; E78.5 Hyperlipidemia, unspecified; I10 Essential (primary) hypertension
CPT/HCPCS: 36415; 71046; 80053; 84443; 85025